=== PATIENT | female | born 1995 | race Caucasian/White ===

== ENCOUNTER 2023-08-11 16:10 | Emergency (ER) | payer SELFPAY | END 2023-08-11 16:11 | disposition left against medical advice (07) | LOC: ANHED 18:35 | PROVIDERS: PCP Pediatrics | DX: Z53.21 Procedure and treatment not carried out due to patient leaving prior to being seen by health care provider (principal) | CPT/HCPCS: 99199 ==

== ENCOUNTER 2024-04-09 23:23 | Emergency (ER) | payer OTHER, SELFPAY ==
[2024-04-09 23:25] VITALS: BP 124/85; PULSE 97; RESP 18; TEMP 36.2; O2SAT 100
--- NOTE | 2024-04-09 23:42 | ED.EAR ---
HPI - Ear Problem General Chief complaint: Ear Stated complaint: ear pain History of Present Illness HPI Narrative: this is a 28-year-old female presenting with ear and jaw pain. The pain started an hour half prior to arrival. the pain is located in her right jaw on in her ear. It is worse when she moves her mouth. It is not associated with signs of infection like fevers chills or URI symptoms. She does not have any loss of hearing in her right ear. She does not believe she has any cavities and saw a dentist several weeks ago. no sore throat or difficulty swallowing. Patient took 500 mg and Tylenol with minimal relief. Patient was treated for a possible ear infection 2 weeks ago when she had similar symptoms although at that time she had loss of hearing in that ear. Patient states she was outside mowing the lawn and in nature and does have seasonal allergies. Related Data Allergies Allergy/AdvReac Type Severity Reaction Status Date / Time Penicillins Allergy Intermediate rash Verified 03/19/24 13:07 [facility] Past Medical History Medical History Concussion Social History Social History Smoking status: Never smoker Alcohol intake: current Substance use: never Lack of Transportation: No Lack of Food: Never True Current Housing: I Have Housing Concerned About Future Housing: No Difficulty Paying Gas/Electric Bills: No Difficulty Paying for Meds: No Education: Bachelor's Degree Living arrangements: with family Exam Narrative: APPEARANCE: No apparent distress. Head: Normal dentition without any obvious dental caries. tympanic membranes are normal bilaterally with no erythema/ bulging/ or purulence. pain to palpation over the right TMJ EYES: EOMI, NOSE: Atraumatic NECK: Trachea midline RESPIRATORY: No increased rate of breathing CARDIOVASCULAR: RRR, ABDOMINAL: Non-distended MUSCULOSKELETAl: No obvious deformities NEURO: Alert. Moving 4/4 extremities SKIN:: Warm, dry. Normal color PSYCHIATRIC: Normal affect Course Vital Signs Vital signs: Vital Signs Temperature 97.1 F L 04/09/24 23:25 Pulse Rate 97 04/09/24 23:25 Respiratory Rate 18 04/09/24 23:25 Blood Pressure 124/85 04/09/24 23:25 Pulse Oximetry 100 04/09/24 23:25 Oxygen Delivery Room Air 04/09/24 23:25 Temperature 97.1 F L 04/09/24 23:25 Pulse Rate 97 04/09/24 23:25 Respiratory Rate 18 04/09/24 23:25 Blood Pressure 124/85 04/09/24 23:25 Pulse Oximetry 100 04/09/24 23:25 Oxygen Delivery Room Air 04/09/24 23:25 Medical Decision Making MDM Narrative Medical decision making narrative: -Course: 28-year-old female presenting with right jaw and ear pain. On physical exam her right ear looks normal. No significant dental caries. She does have some tenderness to palpation over the right TMJ. patient has only had pain for several hours and may develop further symptoms over the weekend that further clarify the diagnosis. Patient will be treated with Motrin and Tylenol instructed to follow-up with her primary care physician Friday. Given return precautions if she develops fevers, signs of infection, swelling in her throat. -DDX includes but is not limited to: TMJ, acute otitis media, serous otitis media with effusion, dental caries, trigeminal neuralgia -Interventions: Motrin, Tylenol -Shared decision making / Disposition: d/c -RX Motrin Tylenol Vital Signs Vital Signs: Vital Signs Temperature 97.1 F L 04/09/24 23:25 Pulse Rate 97 04/09/24 23:25 Respiratory Rate 18 04/09/24 23:25 Blood Pressure 124/85 04/09/24 23:25 Pulse Oximetry 100 04/09/24 23:25 Oxygen Delivery Room Air 04/09/24 23:25 Temperature 97.1 F L 04/09/24 23:25 Pulse Rate 97 04/09/24 23:25 Respiratory Rate 18 04/09/24 23:25 Blood Pressure 124/85 04/09/24 23:25 Pulse
[2024-04-09] MEDS: ACETAMINOPHEN 500 MG TABLET PO (23:45)
[2024-04-09] MEDS: IBUPROFEN 400 MG TABLET 800 MG PO (23:45)
[2024-04-10 00:02] VITALS: BP 132/75; PULSE 80; RESP 18; O2SAT 98
== END 2024-04-10 00:02 | disposition home or self-care (01) ==
PROVIDERS: Emergency Provider Emergency Medicine; PCP Nurse Practitioner Family
DX: R68.84 Jaw pain (principal)
CPT/HCPCS: 99283; A9270

== ENCOUNTER 2025-01-15 08:32 | Outpatient (CLI) | payer OTHER, SELFPAY ==
[2025-01-15 08:54] LABS: Hematocrit 38.8 % (35.0-49.0); Hemoglobin 13.2 g/dL (12.0-15.0); Mean Corpuscular Hemoglobin 29.2 pg (27.0-31.0); Mean Corpuscular Volume 85.8 fL (78.0-102.0); Mean Platelet Volume 10.2 fl (9.2-11.8); Platelet Count Result 251 K/mm3 (150-420); Red Blood Count 4.52 M/mm3 (4.20-5.40); Red Cell Distribution Width 12.8 % (11.6-14.4); White Blood Count 7.7 K/mm3 (4.8-10.8)
[2025-01-15 09:19] LABS: HIV 1 P24 AG Negative (Negative); HIV 1/2 AB Negative (Negative)
[2025-01-17 18:08] LABS: CMV IgG Antibody <0.60 U/mL; Rubella IgG Antibody <0.90 Index; Varicella IgG Antibody 1.23 S/CO
[2025-01-18 01:59] LABS: Hepatitis B Surface Antigen NON-REACTIVE (NON-REACTIVE)
[2025-01-18 16:08] LABS: RPR Screen NON-REACTIVE (NON-REACTIVE)
== END 2025-01-15 08:33 | disposition home or self-care (01) ==
LOC: CHSLAB 08:33
PROVIDERS: PCP Nurse Practitioner Family; Visit Provider Student in an Organized Health Care Education/Training Program
DX: N91.2 Amenorrhea, unspecified (principal); Z20.828 Contact with and (suspected) exposure to other viral communicable diseases
CPT/HCPCS: 36415; 81329; 84702; 85027; 86592; 86644; 86762; 86787; 86850; 86900; 86901; 87340; 87806

== ENCOUNTER 2025-01-30 17:01 | Emergency (ER) | payer OTHER, SELFPAY ==
--- NOTE | 2025-01-30 17:03 | ED.URI ---
HPI - URI/Sore Throat General Chief Complaint: Upper Respiratory Infection Stated Complaint: Fever Time Seen by Provider: 01/30/25 17:03 Source: patient Mode of arrival: ambulatory Limitations: no limitations History of Present Illness HPI Narrative: Erin is a 29-year-old female patient presenting to the clinic today with complaints of fever, scratchy throat, body aches, chills, and nasal congestion x1 day. She reports her symptoms started last night. Temperature in the clinic is 100.3? F. highest fever was 101.1F. She is 11 weeks MD elicited complaint: fever, cough and nasal congestion Related Data Home Medications ?Medication ?Instructions ?Recorded ?Confirmed ?Last Taken ?Type vits no.126-ferrous fum tablet PO 01/03/25 01/03/25 Unknown History 28 mg iron-folic acid 800 mcg tablet (Classic ) Allergies Allergy/AdvReac Type Severity Reaction Status Date / Time Penicillins Allergy Intermediate rash Verified 01/30/25 17:16 Review of Systems Review of Systems: Pertinent positives per HPI. Patient denies any rash, headache, visual changes, dizziness, cough, shortness of breath, chest pain, palpitations, nausea, vomiting, diarrhea, constipation, abdominal pain, or any urinary issues. [facility] Past Medical History Medical History Pseudotumor cerebri syndrome TMJ (dislocation of temporomandibular joint) Concussion Family History Family History Mother Hypertension Social History Social History Smoking status: Never smoker Tobacco type: e-cigarettes/vaping Second hand tobacco smoke exposure: No Alcohol intake: current Drinks per week: 2 Substance use: current Substance use type: marijuana Other substance usage details: 2 x weeek Do You Feel Safe in your Home?: Yes Lack of Transportation: No Lack of Food: Never True Current Housing: I Have Housing Concerned About Future Housing: No Difficulty Paying Gas/Electric Bills: No Difficulty Paying for Meds: No Currently Unemployed: No Education: Bachelor's Degree Difficulty w/ Childcare or Family Care: No Living arrangements: with family Additional living arrangements comments: Occupation/Education: occupation 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 There is no relevant family history pertinent to the patient complaint. Exam Narrative: General: Well-developed, well nourished, in no apparent distress Head: Normocephalic, atraumatic Eyes: Pupils equally round and reactive to light bilaterally, EOM intact, sclera and conjunctive clear, no discharge, lids normal Ears: TMs intact and clear, ear canals clear, no drainage, grossly hearing normal. Nose: Nares patent, clear nasal discharge, no inflammation, no sinus tenderness. Mouth: Oral pharynx without lesions or masses, good dentition, MMM. Neck: Supple, trachea midline, no enlargement of anterior or posterior cervical nodes, no thyroid masses or goiter palpable. Cardio: Regular rate and rhythm, s1 and s2 normal, no murmur appreciated. Resp: Clear to auscultation bilaterally, no rhonchi, rales, wheezing or rubs Course Course Emergency Course: Portions of this record may have been created with voice recognition software. Level of Care: Express Care Visit Vital Signs Vital signs: Vital Signs Temperature 37.9 C H 01/30/25 17:16 Pulse Rate 101 H 01/30/25 17:16 Respiratory Rate 20 01/30/25 17:16 Blood Pressure 143/90 H 01/30/25 17:16 Pulse Oximetry 100 01/30/25 17:16 Oxygen Delivery Room Air 01/30/25 17:16 Temperature 37.9 C H 01/30/25 17:21 Pulse Rate 101 H 01/30/25 17:21 Respiratory Rate 20 01/30/25 17:21 Blood Pressure 143/90 H 01/30/25 17:21 Pulse Oximetry 100 01/30/25 17:16 Oxygen Delivery Room Air 01/30/25 17:21 Vital signs reviewed MDM - URI/Sore Throat MDM Narrative Medical decision making narrative: At the time of visit patient is resting comfortably on the exam table. Patient appears to be nontoxic. Labs: Influenza a testing is positive in the clinic today. Plan: Patient has influenza A. She is 11 weeks . Prescription for Tamiflu was sent to the pharmacy. Supportive measures were discussed with the patient and they voiced understanding discharge instructions and agrees to treatment plan. Return precautions reviewed Differential Diagnosis Differential diagnosis: Likely upper respiratory infection, otitis media, sinusitis, viral infection, bronchitis, influenza, pharyngitis and other (COVID) Discharge Plan Discharge Clinical Impression: Influenza A Patient Disposition: Home, Self-Care Condition: Stable Instructions: Antibiotic Form, Influenza (ED) Additional Instructions: Take prescription medications only as vmhzoxpjen-njahelz-nuho medication is safe in Increase fluids and stay well hydrated Tylenol for pain/fever Flonase and OTC antihistamines as directed Vicks vapor rub to open sinuses Sinus rinses for congestion Cepacol spray, cough drops, throat lozenges, warm tea with honey/lemon, gargle salt water to soothe throat BRAT diet for diarrhea Clear liquids x 24 hours then advance as tolerated for nausea/vomiting Go to the ED if you develop a worsening in your condition- high fever not controlled by Tylenol or Motrin, dehydration, weakness, lethargy, shortness of breath, or chest pain. Follow up with your PCP in 3-5 days if symptoms persist. Approved Medications for Patients Cold and Flu Symptoms --Tylenol (regular or extra Strength) Fever (call if over 101?)--Tylenol (regular or extra Strength) Nasal Drainage/Head Congestion--Chlor-Trimeton, Sudafed, Tavist,Tylenol Sinus Cough--Robitussin, Delsym, Mucinex Sore Throat--Chloraseptic, Cepacol lozenges Allergy Symptoms--Benadryl, Zyrtec, Zyrtec D, Claritin, Claritin D Nausea--Emetrol, Vitamin B6 Tablets, Dot, Dot Tea, Preggie Pops, B-Vinicio Suckers Constipation--Milk of Magnesia, Metamucil, Fiberall, Konsyl, Colace (Docusate Sodium) Diarrhea--Imodium, Kaopectate, Follow BRAT diet: bananas, rice, applesauce, tea/toast Heartburn--Maalox, Mylanta, TUMS, Prilosec OTC, Zantac, Tagament, Prevacid, Pepcid Hemorrhoids--Tucks Pads, Anusol, Preparation H, warm sitz baths Patient Language: Armenian Prescriptions: New oseltamivir [Tamiflu] 75 mg capsule 75 mg PO Q12H 5 Days Qty: 10 0RF No Action Classic 28 mg iron- 800 mcg tablet PO ondansetron HCl 4 mg tablet 4 mg PO Q6H PRN (Reason: nausea and vomiting) Qty: 30 1RF Follow-up/Referrals: PHYSICIAN,STREETS AND BUILDINGS DECORATOR [Primary Care Provider] - Stand Alone Forms: Work/School Release IP Time of Disposition: 17:20 Quality NIHSS Nursing Documentation ED NIHSS nursing documentation: reviewed/agree
[2025-01-30 17:16] VITALS: BP 143/90; PULSE 101; RESP 20; TEMP 37.9; O2SAT 100
[2025-01-30 17:21] VITALS: BP 143/90; PULSE 101; RESP 20; TEMP 37.9
[2025-01-30 17:24] LABS: EDINFLUASCREEN Positive (Negative); EDINFLUBSCREEN Negative (Negative)
== END 2025-01-30 17:26 | disposition home or self-care (01) ==
PROVIDERS: Emergency Provider Nurse Practitioner Family
DX: O26.891 Other specified pregnancy related conditions, first trimester (principal); J10.1 Influenza due to other identified influenza virus with other respiratory manifestations; Z3A.11 11 weeks gestation of pregnancy
CPT/HCPCS: 87804; 99213; G0463

== ENCOUNTER 2025-04-08 13:22 | Outpatient (CLI) | payer OTHER, SELFPAY ==
--- NOTE | ~2025-04-08 | US_ITS ---
COMPLETE AND LIMITED MATERNAL ULTRASOUND (Duplex and color flow interrogation techniques used f or this exam.) Ordering provider: Eliazar Moore History: . Z34.92 - Encounter for supervision of normal , u... . Comparison: N Findings: Number of fetuses: 1 BIOMETRY: BPD: 5 cm (21 weeks 2 days) HC: 18.6 cm (20 weeks 6 days) AC: 16.9 cm (21 weeks 6 days) FL: 3.8 cm (22 weeks 0 days) Parametric ratios: Today's average US gestational age: 21 weeks 4 days Today's EDC: August 15, 2025 (Previously established gestational age: 20 weeks 4 days) (Previously established EDC: 08/22/2025. CI: 76.95. FL/BPD: 74.6. CT/AC: 1.1. FL/AC: 22.21. Estimated weight: 453.86gm. Rank: 96.6% SCREENING OF ANATOMY: ( Y =seen and unremarkable.) Cerebellum: Y( 22.6 mm) Lateral ventricles: Y . Nuchal fold:Y. measures 4.9 mm. Cisterna magna: Y ( 4.2 mm) Stomach: Y Kidneys: Y. Measures 1.6 cm bilaterally. Bladder: Y Spine: Y Three vessel cord: Y Cord insertion: Y Four chamber heart: Y LVOT: Y RVOT: Y Lips and nose: Y Upper extremity: Y Lower extremity: Y Cervix: Y ( 47.3 mm ) Presentation: Breech. Longitudinal lie. Placental location: Anterior fundal. Distance to cervix is 3.8 cm. Previa: N. Amniotic fluid index: Normal. Heart rate: 154 bpm MATERNAL: ( Y =seen and unremarkable.) Adnexa: N Right kidney: N Left kidney: N Gallbladder: N Wafer Machine Operator comments: N IMPRESSION: Single live fetus of 21 weeks and 4 days of breech presentation. Reviewed, dictated and finalized at location A.
--- OUTSIDE RECORDS SUMMARY | 2025-04-08 13:24 | XMS_ITS | Clinical Summary ---
Author Organization [facility] Address [address] [place] [address] Care Team Providers Care Journeyman Welder Name Role Phone Lobito Mcelroy Primary Care Provider Allergies Active Allergy Reactions Criticality Noted Date Comments Penicillins Rash Medium 01/24/2020 Medications albuterol HFA (PROVENTIL HFA,VENTOLIN HFA,PROAIR HFA) 90 mcg/actuation inhaler 09/30/20 23 Active ondansetron ODT (ZOFRAN-ODT) 4 mg disintegrating tablet 10/09/20 23 Active topiramate (TOPAMAX) 50 mg tablet Take 1 tablet (50 mg total) by mouth 2 (two) times a day Take 1 50 mg tablet daily for one week, and then increase to two times a day 180 tablet 3 10/27/20 23 Active Additional Information Patient not taking.Reported on 02/25/2025 PNV no.95/ferrous fum/folic ac ( ORAL) Take by mouth Active magnesium gluconate 200 mg tabletIndications: hypomagnesemia 1 tablet (200 mg total) Active Active Problems Problem Noted Date Diagnosed Date Clostridium difficile diarrhea 06/25/2021 Recurrent sinusitis 06/25/2021 Recurrent major depression 03/07/2021 Idiopathic intracranial hypertension 04/19/2020 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 [address] [place] [phone] Trenton Tiwari MD Idiopathic intracranial hypertension (Primary Dx); Papilledema 02/25/2025 8:20 AM CDT Imaging Exam [facility] Ophthalmology [address] [place] [phone] Idiopathic intracranial hypertension 02/25/2025 8:00 AM CDT Imaging Exam [facility] Ophthalmology [address] [place] [phone] Idiopathic intracranial hypertension 02/22/2025 Telephone [facility] Ophthalmology [address] [place] [phone] Trenton Tiwari MD 02/02/2025 Orders Only [facility] Ophthalmology [address] [place] [phone] Trenton Tiwari MD Idiopathic intracranial hypertension (Primary Dx) from Last 3 Months Surgical History Surgery Date Site/Laterality Comments LUMBAR PUNCTURE WO INJECTION, DIAGNOSTIC 02/04/2020 N/A Social History Tobacco Use Types Packs/Day Years Used Date Smoking Tobacco: Former Alcohol Use Standard Drinks/Week Comments Yes 0 (1 standard drink = 0.6 oz pur e alcohol) Social AUDIT-C Answer Date Recorded Q1: How often do you have a drink containing alc ohol? 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 Gender Identity Female 08/11/2023 11:20 AM CDT Sexual Orientation Not on file Obstetrics History Last Filed Vital Signs Vital Sign Reading Time Taken Comments Blood Pressure 136/77 02/04/2020 12:00 PM INFLATABLE BUILDINGS LAMINATOR Pulse 72 02/04/2020 12:00 PM INFLATABLE BUILDINGS LAMINATOR Temperature 36.6 C (97.8 F) 02/04/2020 12:00 PM INFLATABLE BUILDINGS LAMINATOR Respiratory Rate 16 02/04/2020 12:00 PM INFLATABLE BUILDINGS LAMINATOR Oxygen Saturation 99% 02/04/2020 12:00 PM INFLATABLE BUILDINGS LAMINATOR Inhaled Oxygen Concentration - - Weight 118.8 kg (262 lb) 10/27/2023 2:43 PM INFLATABLE BUILDINGS LAMINATOR Height 172.7 cm (5' 8 ) 10/27/2023 2:43 PM INFLATABLE BUILDINGS LAMINATOR Body Mass Index 39.84 10/27/2023 2:43 PM INFLATABLE BUILDINGS LAMINATOR Plan of Treatment Health Maintenance Due Date Last Done Comments Cervical Cancer Screening 1997 Depression Screening 1997 Hepatitis C Screening 1997 DTaP/Tdap/Td Vaccine (4 - Tdap) 2008 04/05/1998, 01/18/1998, 1997 Varicella Vaccines (1 of 2 - 13+ 2-dose series) 2010 Regular Well Visit/Exam 18-64 2015 Covid-19 Vaccine (2 - 2023-2 5 season) 2024 08/24/2021 Influenza Vaccine (Season Ended) 2025 Hepatitis B Screening Completed 1997 , 1997 HPV Vaccines Aged Out No longer eligi ble based on patient's age to complete this topic Pneumococcal vaccine <65 Aged Out No longer eligible based on patient's age to complete this topic Procedures Procedure Name Priority Date/Time Associated Diagnosis Comments PINEDA VISUAL FIELD - OU - BOTH EYES Routine 02/25/2025 8:33 AM CDT Idiopathic intracranial hypertension OCT, RETINA - OU - BOTH EYES Routine 02/25/2025 8:33 AM CDT Idiopathic intracranial hypertension OCT, OPTIC NERVE - OU - BOTH EYES Routine 02/25/2025 8:33 AM CDT Idiopathic intracranial hypertension from Last 3 Months Results * Pineda Visual Field - OU - Both Eyes (02/25/2025 8:33 AM CDT) Mean Deviation OS -1.24 dB CONTINUUM Mean Deviation OD 0.13 dB CONTINUUM Anatomical Region Laterality Modality Head Other Narrative 02/25/2025 10:00 AM CDT Right Eye Fixation was good. Cooperation was good. Reliability was good. Progression has been stable. Foveal threshold was normal. Findings include normal observations. Mean Deviation was 0.13 dB. Left Eye Fixation was good. Cooperation was good. Reliability was good. Progression has been stable. Foveal threshold was normal. Findings include non-specific defects. Mean Deviation was -1.24 dB. Trenton Tiwari MD OPH VISUAL FIELD F inal Result * OCT, Retina - OU - Both Eyes (02/25/2025 8:33 AM CDT) Central Macular Thickness OS 269 mircometers CONTINUUM Central Macular Thickness OD 263 micrometers CONTINUUM Anatomical Region Laterality Modality Head Other Narrative 02/25/2025 9:57 AM CDT Right Eye Quality was good. Scan locations included subfoveal. Progression has been stable. Findings include normal foveal contour. Macular thickness was 263 micrometers. Left Eye Quality was good. Scan locations included subfoveal. Progression has been stable. Findings include normal foveal contour. Macular thickness was 269 mircometers. Notes GCL OD: 89 OS: 92 Normal macular and ganglion cell layer (GCL) thickness both eyes (OU). Stable both eyes (OU). Trenton Tiwari MD OPHTH TOMOGRAPHY Fin al Result * OCT, Optic Nerve - OU - Both Eyes (02/25/2025 8:33 AM CDT) RNFL OS 151 micrometers CONTINUUM RNFL OD 139 micrometers CONTINUUM Anatomical Region Laterality Modality Head Other Narrative 02/25/2025 9:57 AM CDT Right Eye Reliability was good. Average RNFL thickness 139 micrometers. Left Eye Reliability was good. Average RNFL thickness 151 micrometers. Notes Mild, diffuse retinal nerve fiber layer thickening OU. Stable both eyes (OU). Trenton Tiwari MD OPHTH TOMOGRAPHY Fin al Result from Last 3 Months Insurance [facility] H[facility]/PPO Address: [address] [address] [place] [address] [facility] Advance Directives For more information, please contact: [phone] * Full Code (Latest Code Status on File) Date Activated Date Inactivated Comments 02/04/2020 11:17 AM 02/04/2020 7:26 PM Care Teams Journeyman Welder Relationship Specialty Start Date End Date Lobito Mcelroy DO [address] [place] [address] PCP - General Family Medicine 11/29/24
--- OUTSIDE RECORDS SUMMARY | 2025-04-08 13:24 | XMS_ITS | Referral Summary ---
Author Organization [facility] Address [address] [place] [address] Care Team Providers Care Bullion Weigher Name Role Phone Lobito Mcelroy DO Primary Care Provider Encounters Date Type Department Care Team Description 02/25/2025 8:20 AM CDT Imaging Exam [facility] Ophthalmology [address] [place] [phone] Idiopathic intracranial hypertension 02/25/2025 8:00 AM CDT Imaging Exam [facility] Ophthalmology [address] [place] [phone] Idiopathic intracranial hypertension 02/25/2025 8:30 AM CDT Office Visit [facility] Ophthalmology [address] [place] [phone] Trenton Tiwari MD Idiopathic intracranial hypertension (Primary Dx); Papilledema 02/22/2025 Telephone [facility] Ophthalmology [address] [place] [phone] Trenton Tiwari MD 02/02/2025 Orders Only [facility] Ophthalmology [address] [place] [phone] Trenton Tiwari MD Idiopathic intracranial hypertension (Primary Dx) from Last 3 Months Allergies Active Allergy Reactions Criticality Noted Date Comments Penicillins Rash Medium 01/24/2020 Medications albuterol HFA (PROVENTIL HFA,VENTOLIN HFA,PROAIR HFA) 90 mcg/actuation inhaler 09/30/20 Active ondansetron ODT (ZOFRAN-ODT) 4 mg disintegrating tablet 10/09/20 Active topiramate (TOPAMAX) 50 mg tablet Take 1 tablet (50 mg total) by mouth 2 (two) times a day Take 1 50 mg tablet daily for one week, and then increase to two times a day 180 tablet 3 10/27/20 Active Additional Information Patient not taking.Reported on 02/25/2025 PNV no.95/ferrous fum/folic ac ( ORAL) Take by mouth Active magnesium gluconate 200 mg tabletIndications: hypomagnesemia 1 tablet (200 mg total) Active Active Problems Problem Noted Date Diagnosed Date Clostridium difficile diarrhea 06/25/2021 Recurrent sinusitis 06/25/2021 Recurrent major depression 03/07/2021 Idiopathic intracranial hypertension 04/19/2020 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 Migraine 10/18/2019 Social History Tobacco Use Types Packs/Day Years [...] on file Legal Sex Female 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 Gender Identity Female 08/11/2023 11:20 AM CDT Sexual Orientation Not on file Last Filed Vital Signs Vital Sign Reading Time Taken Comments Blood Pressure 136/77 02/04/2020 12:00 PM [employer]WO[employer] V[employer] REPAIRER Pulse 72 02/04/2020 12:00 PM [employer]WO[employer] AND VENEER REPAIRER Temperature 36.6 C (97.8 F) 02/04/2020 12:00 PM [employer]WO[employer] AND VENEER REPAIRER Respiratory Rate 16 02/04/2020 12:00 PM [employer]WO[employer] VENEER REPAIRER Oxygen Saturation 99% 02/04/2020 12:00 PM PLYWOOD AND VENEER REPAIRER Inhaled Oxygen Concentration - - Weight 118.8 kg (262 lb) 10/27/2023 2:43 PM [employer]WO[employer] AND VENEER REPAIRER Height 172.7 cm (5' 8 ) 10/27/2023 2:43 PM [employer]YWOOD AND VENEER REPAIRER Body Mass Index 39.84 10/27/2023 2:43 PM [employer]WO[employer] VENEER REPAIRER Plan of Treatment Not on file Procedures Procedure Name Priority Date/Time Associated Diagnosis [...] al Result from Last 3 Months Insurance [facility] Advance Directives For more information, please contact: [phone] * Full Code (Latest Code Status on File) Date Activated Date Inactivated Comments 02/04/2020 11:17 AM 02/04/2020 7:26 PM Care Teams Bullion Weigher Relationship Specialty Start Date End Date Lobito Mcelroy DO [address] [place] [address] PCP - General Family Medicine 11/29/24
--- OUTSIDE RECORDS SUMMARY | 2025-04-08 13:24 | XMS_ITS | Encounter Summary ---
Author Organization [facility] Address [address] [place] [address] Phone Care Team Providers Care Holistic Pulser Name Role Phone Kaela Ernst DO Primary Care Provider [phone] Lobito Mcelroy DO Primary Care Provider Reason for Referral * Diagnostic Imaging (Routine) - Closed Specialty Diagnoses / Procedures Referred By Contac t Referred To Contact Diagnoses Idiopathic intracranial hypertension Papilledema Pseudotumor cerebri Procedures OCT, Retina - OU - Both Eyes Trenton Tiwari MD [address] [place] [address] Phone: tel: fax: [facility] (All Locations) Referral ID Status Reason Start Date Expiration Date Visits Re quested Visits Authorized [id number] Closed 02/03/2024 03/04/2025 1 1 NDARY TEACHER * Diagnostic Imaging (Routine) - Closed Specialty Diagnoses / Procedures Referred By Contac t Referred To Contact Diagnoses Idiopathic intracranial hypertension Papilledema Pseudotumor cerebri Procedures OCT, Optic Nerve - OU - Both Eyes Trenton Tiwari MD [address] [place] [address] Phone: tel: fax: [facility] (All Locations) Referral ID Status Reason Start Date Expiration Date Visits Re quested Visits Authorized [id number] Closed 02/03/2024 03/04/2025 1 1 NDARY TEACHER * Diagnostic Imaging (Routine) - Closed Specialty Diagnoses / Procedures Referred By Preet t Referred To Contact Diagnoses Idiopathic intracranial hypertension Papilledema Pseudotumor cerebri Procedures Pineda Visual Field - [place] [address] [place] [address] Phone: tel: fax: [facility] (All Locations) Referral ID Status Reason Start Date Expiration Date Visits Re quested Visits Authorized [id number] Closed 02/03/2024 03/04/2025 1 1 NDARY TEACHER Encounter Details Date Type Department Care Team (Late st Contact Info) Description 02/03/2024 Orders Only [facility] Ophthalmology [address] [place] [address] Health 6th [place] [phone] Trenton Tiwari MD [facility] [address] [address] Idiopathic intracranial hypertension (Primary Dx); Papilledema; Pseudotumor cerebri Social History Tobacco Use Types Packs/Day Years Used Date Smoking Tobacco: Former Alcohol Use Standard Drinks/Week Comments Yes 0 (1 standard drink = 0.6 oz pur e alcohol) Social Comments No Sex and Gender Information Value Date Recorded Sex Assigned at Not on file Legal Sex Female 7:19 PM SECONDARY TEACHER Gender Identity Female 08/11/2023 11:20 AM CDT Sexual Orientation Not on file documented as of this encounter Plan of Treatment Not on file documented as of this encounter Procedures Procedure Name Priority Date/Time Associated Diagnosis Comments PINEDA VISUAL FIELD - OU - BOTH EYES Routine 02/20/2024 9:08 AM CDT Idiopathic intracranial hypertension Papilledema Pseudotumor cerebri documented in this encounter Results * Pineda Visual Field - OU - Both Eyes (02/20/2024 9:08 AM CDT) Pattern Deviation OS 1.44 db CONTINUUM Pattern Deviation OD 1.10 db CONTINUUM Mean Deviation OS -1.64 db CONTINUUM Mean Deviation OD -1.09 db CONTINUUM Anatomical Region Laterality Modality Head Other Narrative 02/20/2024 2:09 PM CDT Right Eye Fixation was good. Cooperation was good. Reliability was good. Progression has been stable. Foveal threshold was normal. Findings include normal observations. Mean Deviation was -1.09 db. Pattern Deviation was 1.10 db. Left Eye Fixation was good. Cooperation was good. Reliability was good. Progression has been stable. Foveal threshold was normal. Findings include normal observations. Mean Deviation was -1.64 db. Pattern Deviation was 1.44 db. Trenton Tiwari MD OPH VISUAL FIELD F inal Result * OCT, Retina - OU - Both Eyes (02/20/2024 9:08 AM CDT) Central Macular Thickness OS 274 mircometers CONTINUUM Central Macular Thickness OD 273 micrometers CONTINUUM Anatomical Region Laterality Modality Head Other Narrative 02/20/2024 2:10 PM CDT Right Eye Quality was good. Scan locations included subfoveal. Progression has been stable. Findings include normal foveal contour. Macular thickness was 273 micrometers. Left Eye Quality was good. Scan locations included subfoveal. Progression has been stable. Findings include normal foveal contour. Macular thickness was 274 mircometers. Notes GCL OD: 92 OS: 94 Normal macular and ganglion cell layer (GCL) thickness both eyes (OU). Stable OU. Trenton Tiwari MD OPH TOMOGRAPHY Fin al Result * OCT, Optic Nerve - OU - Both Eyes (02/20/2024 9:08 AM CDT) RNFL OS 129 micrometers CONTINUUM RNFL OD 126 micrometers CONTINUUM Anatomical Region Laterality Modality Head Other Narrative 02/20/2024 2:09 PM CDT Right Eye Reliability was good. Average RNFL thickness 126 micrometers. Left Eye Reliability was good. Average RNFL thickness 129 micrometers. Notes Mild, diffuse retinal nerve fiber layer thinning OU. Stable OD, slight thinning since prior scan OS. us Trenton Tiwari MD OPHTH TOMOGRAPHY Fin al Result documented in this encounter Visit Diagnoses Diagnosis Idiopathic intracranial hypertension- Primary Benign intracranial hypertension Papilledema Unspecified papilledema Pseudotumor cerebri Benign intracranial hypertension Idiopathic intracranial hypertension Benign intracranial hypertension Papilledema Unspecified papilledema Pseudotumor cerebri Benign intracranial hypertension documented in this encounter Care Teams Holistic Pulser Relationship Specialty Start Date End Date Kaela Ernst DO [address] [address] PCP - General Internal Medicine 01/24/20 11/28/24 Lobito Mcelroy DO [address] [place] [address] PCP - General Family Medicine 11/29/24 documented as of this encounter
== END 2025-04-08 13:23 | disposition home or self-care (01) ==
PROVIDERS: PCP Nurse Practitioner Family; Visit Provider Student in an Organized Health Care Education/Training Program
DX: Z34.92 Encounter for supervision of normal pregnancy, unspecified, second trimester (principal); Z3A.21 21 weeks gestation of pregnancy
CPT/HCPCS: 76805

== ENCOUNTER 2025-06-22 07:28 | Outpatient (CLI) | payer OTHER, SELFPAY ==
--- OUTSIDE RECORDS SUMMARY | 2025-06-22 07:32 | XMS_ITS | Encounter Summary ---
Author Organization [facility] Address [address] [place] [address] Phone Care Team Providers Care Barrel Filler Head Name Role Phone Kaela Ernst DO Primary Care Provider [phone] Lobito Mcelroy DO Primary Care Provider Reason for Referral * Diagnostic Imaging (Routine) - Closed Specialty Diagnoses / Procedures Referred By Contac t Referred To Contact Diagnoses Idiopathic intracranial hypertension Papilledema Pseudotumor cerebri Procedures OCT, Retina - OU - Both Eyes Trenton Tiwari MD [address] [place] [address] Phone: tel: fax: [facility] (All Locations) Referral ID Status Reason Start Date Expiration Date Visits Re quested Visits Authorized [id number] Closed 02/03/2024 03/04/2025 1 1 GRATION LAW SPECIALIST * Diagnostic Imaging (Routine) - Closed Specialty Diagnoses / Procedures Referred By Contac t Referred To Contact Diagnoses Idiopathic intracranial hypertension Papilledema Pseudotumor cerebri Procedures OCT, Optic Nerve - OU - Both Eyes Trenton Tiwair MD [address] [place] [address] Phone: tel: fax: [facility] (All Locations) Referral ID Status Reason Start Date Expiration Date Visits Re quested Visits Authorized [id number] Closed 02/03/2024 03/04/2025 1 1 GRATION LAW SPECIALIST * Diagnostic Imaging (Routine) - Closed Specialty Diagnoses / Procedures Referred By Preet t Referred To Contact Diagnoses Idiopathic intracranial hypertension Papilledema Pseudotumor cerebri Procedures Pineda Visual Field - [place] [address] [place] [address] Phone: tel: fax: [facility] (All Locations) Referral ID Status Reason Start Date Expiration Date Visits Re quested Visits Authorized [id number] Closed 02/03/2024 03/04/2025 1 1 GRATION LAW SPECIALIST Encounter Details Date Type Department Care Team (Late st Contact Info) Description 02/03/2024 Orders Only [facility] Ophthalmology [address] [place] [address] Health 6th [place] [phone] Trenton Tiwari MD [facility] [address] Idiopathic intracranial hypertension (Primary Dx); Papilledema; Pseudotumor cerebri Social History Tobacco Use Types Packs/Day Years Used Date Smoking Tobacco: Former Alcohol Use Standard Drinks/Week Comments Yes 0 (1 standard drink = 0.6 oz pur e alcohol) Social Comments No Sex and Gender Information Value Date Recorded Sex Assigned at Not on file Legal Sex Female 7:19 PM IMMIGRATION LAW SPECIALIST Gender Identity Female 08/11/2023 11:20 AM CDT [...] hypertension documented in this encounter Care Teams Barrel Filler Head Relationship Specialty Start Date End Date Kaela Ernst DO [address] [address] PCP - General Internal Medicine 01/24/20 11/28/24 Lobito Mcelroy DO [address] [place] [address] PCP - General Family Medicine 11/29/24 documented as of this encounter
--- OUTSIDE RECORDS SUMMARY | 2025-06-22 07:32 | XMS_ITS | Clinical Summary ---
Author Organization [facility] Address [address] [place] [address] Care Team Providers Care Studio Technician Name Role Phone Klever Kaela Hutchinson DO Primary Care Provider [phone] [facility],non-owned Affiliates and Associated Physician Practices is amultiple site organization consisting of ambulatory clinics and hospital sitesin [place], [place], [place] and [place]. This disclosure is being madepursuant to the Care Everywhere program and may not contain all information available regarding this patient. Last updated 18.[facility] Allergies Active Allergy Reactions Criticality Noted Date Comments Penicillins Rash Medium 01/24/2020 Medications * Be aware that medications may not be up to date on this document. Alwaysverify current medications with the patient. FLUoxetine (PROZAC) 20 MG capsule Take 1 capsule by mouth once daily 03/07/2021 Active levonorgestrel- ethinyl estradiol (ALESSE; LEVLITE; AVIANE; LUTERA; LESSINA; SRONYX) 0.1-20 MG-MCG tablet Take 1 (one) tablet by mouth once daily 3 packet 4 03/16/2021 Active Active Problems Problem Noted Date Diagnosed Date Pseudotumor cerebri 04/19/2020 Family History Relation Name Status Comments Father Alive Mother Alive Social History Tobacco Use Types Packs/Day Years Used Date Smoking Tobacco: Never Smokeless Tobacco: Never Alcohol Use Standard Drinks/Week Comments Yes 0 (1 standard drink = 0.6 oz pur e alcohol) socially Comments No Sex and Gender Information Value Date Recorded Sex Assigned at Not on file Legal Sex Female 5:38 AM 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 Gender Identity Not on file Sexual Orientation Not on file Last Filed Vital Signs Vital Sign Reading Time Taken Comments Blood Pressure 122/92 03/16/2021 2:16 PM CDT Pulse 91 03/16/2021 2:16 PM CDT Temperature 36.8 C (98.2 F) 03/16/2021 2:16 PM CDT Respiratory Rate - - Oxygen Saturation - - Inhaled Oxygen Concentration - - Weight 127.9 kg (282 lb) 03/16/2021 2:16 PM CDT Height 170.2 cm (5' 7) 03/16/2021 2:16 PM CDT Body Mass Index 44.17 03/16/2021 2:16 PM CDT Plan of Treatment Health Maintenance Due Date Last Done Comments HIV SCREENING 2012 HEPATITIS C SCREENING 09/13/2015 DTAP/TDAP/TD VACCINES (1 - Tdap) 2016 HEPATITIS B VACCINE (1 of 3 - 19+ 3-dose series) 2016 COVID-19 VACCINE (1 - 2023-2 5 season) 2024 DEPRESSION SCREENING 12/01/2024 INFLUENZA VACCINE (#1) 2025 ZOSTER VACCINE (1 of 2) 2047 HIB VACCINE Aged Out No longer eligi ble based on patient's age to complete this topic HPV VACCINE Discontinued MENINGOCOCCAL (Group B) VACC INE SHARED DECISION-MAKING Aged Out No longer eligibl e based on patient's age to complete this topic MENINGOCOCCAL GROUPS A/C/Y/W VACCINE Aged Out No longer eligible b ased on patient's age to complete this topic PNEUMOCOCCAL VACCINE Aged Out No long er eligible based on patient's age to complete this topic Insurance [address] [place] [address] Care Teams Studio Technician Relationship Specialty Start Date End Date Kaela Ernst DO PCP - General Internal Medicine 03/16/21
--- OUTSIDE RECORDS SUMMARY | 2025-06-22 07:32 | XMS_ITS | Clinical Summary ---
Author Organization [facility] Address [address] [place] [address] Care Team Providers Care Biology Teacher Name Role Phone Lobito Mcelroy Primary Care [...] Encounters Date Type Department Care Team Description 05/20/2025 9:15 AM CDT Office Visit [facility] Ophthalmology [facility] Health [address] [place] [phone] Trenton Tiwari MD Papilledema (Primary Dx); Idiopathic intracranial hypertension 05/20/2025 8:50 AM CDT Imaging Exam [facility] Ophthalmology [address] [phone] Papilledema 05/20/2025 8:30 AM CDT Imaging Exam [facility] Ophthalmology [address] [place] [phone] Papilledema 05/16/2025 Telephone [facility] Ophthalmology [facility] [address] [phone] Trenton Tiwari MD from Last 3 Months Surgical History Surgery [...] on file Legal Sex Female 7:19 PM DAY TREATMENT CLINICIAN/ART THERAPIST Gender Identity Female 08/11/2023 11:20 AM CDT Sexual Orientation Not on file Obstetrics History Last Filed Vital Signs Vital Sign Reading Time Taken Comments Blood Pressure 136/77 02/04/2020 12:00 PM DAY TREATMENT CLINICIAN/ART THERAPIST Pulse 72 02/04/2020 12:00 PM DAY TREATMENT CLINICIAN/ART THERAPIST Temperature 36.6 C (97.8 F) 02/04/2020 12:00 PM DAY TREATMENT CLINICIAN/ART THERAPIST Respiratory Rate 16 02/04/2020 12:00 PM DAY TREATMENT CLINICIAN/ART THERAPIST Oxygen Saturation 99% 02/04/2020 12:00 PM DAY TREATMENT CLINICIAN/ART THERAPIST Inhaled Oxygen Concentration - - Weight 118.8 kg (262 lb) 10/27/2023 2:43 PM DAY TREATMENT CLINICIAN/ART THERAPIST Height 172.7 cm (5' 8) 10/27/2023 2:43 PM DAY TREATMENT CLINICIAN/ART THERAPIST Body Mass Index 39.84 10/27/2023 2:43 PM DAY TREATMENT CLINICIAN/ART THERAPIST Plan of Treatment Health Maintenance Due Date [...] FIELD - OU - BOTH EYES Routine 05/20/2025 8:43 AM CDT Papilledema OCT, RETINA - OU - BOTH EYES Routine 05/20/2025 8:39 AM CDT Papilledema OCT, OPTIC NERVE - OU - BOTH EYES Routine 05/20/2025 8:39 AM CDT Papilledema from Last 3 Months Results * Pineda Visual Field - OU - Both Eyes (05/20/2025 8:43 AM CDT) Pattern Deviation OS 1.36 dB CONTINUUM Pattern Deviation OD 1.18 dB CONTINUUM Mean Deviation OS 0.20 dB CONTINUUM Mean Deviation OD 0.04 dB CONTINUUM Anatomical Region Laterality Modality Head Other Narrative 05/20/2025 9:01 AM CDT Right Eye Fixation was good. Cooperation was good. Reliability was good. Progression has been stable. Foveal threshold was normal. Findings include normal observations. Mean Deviation was 0.04 dB. Pattern Deviation was 1.18 dB. Left Eye Fixation was good. Cooperation was good. Reliability was good. Progression has been stable. Foveal threshold was normal. Findings include normal observations. Mean Deviation was 0.20 dB. Pattern Deviation was 1.36 dB. Notes Stable and normal visual field OU Trenton Tiwari MD OPH VISUAL FIELD F inal Result * OCT, Retina - OU - Both Eyes (05/20/2025 8:39 AM CDT) Central Macular Thickness OS 266 mircometers CONTINUUM Central Macular Thickness OD 266 micrometers CONTINUUM Anatomical Region Laterality Modality Head Other Narrative 05/20/2025 9:03 AM CDT Right Eye Quality was good. Scan locations included subfoveal. Progression has been stable. Findings include normal foveal contour. Macular thickness was 266 micrometers. Left Eye Quality was good. Scan locations included subfoveal. Progression has been stable. Findings include normal foveal contour. Macular thickness was 266 mircometers. Notes GCL OD: 89 OS: 91 Normal macular and ganglion cell layer (GCL) thickness both eyes (OU). Stable both eyes (OU). Trenton Tiwari MD OPHTH TOMOGRAPHY Fin al Result * OCT, Optic Nerve - OU - Both Eyes (05/20/2025 8:39 AM CDT) RNFL OS 142 micrometers CONTINUUM RNFL OD 132 micrometers CONTINUUM Anatomical Region Laterality Modality Head Other Narrative 05/20/2025 9:02 AM CDT Right Eye Reliability was good. Average RNFL thickness 132 micrometers. Left Eye Reliability was good. Average RNFL thickness 142 micrometers. Notes Mild, diffuse retinal nerve fiber layer thickening OU, stable OU. Trenton Tiwari MD OPHTH TOMOGRAPHY Fin al Result from Last 3 Months Insurance [facility] Advance Directives For more information, please contact: [phone] * Full Code (Latest Code Status on File) Date Activated Date Inactivated Comments 02/04/2020 11:17 AM 02/04/2020 7:26 PM Care Teams Biology Teacher Relationship Specialty Start Date End Date Lobito Mcelroy DO [address] [place] [address] PCP - General Family Medicine 11/29/24
--- OUTSIDE RECORDS SUMMARY | 2025-06-22 07:32 | XMS_ITS | Referral Summary ---
Author Organization [facility] Address [address] [place] [address] Care Team Providers Care Infrastructure Architect Name Role Phone Lobito Mcelroy DO Primary Care Provider Encounters Date Type Department Care Team Description 05/20/2025 8:50 AM CDT Imaging Exam [facility] Ophthalmology [address] [place] [address] Outpatient Health [address] [place] [phone] Papilledema 05/20/2025 8:30 AM CDT Imaging Exam [facility] Ophthalmology [address] [place] [phone] Papilledema 05/20/2025 9:15 AM CDT Office Visit [facility] Ophthalmology [address] [place] [phone] Trenton Tiwari MD Papilledema (Primary Dx); Idiopathic intracranial hypertension 05/16/2025 Telephone [facility] Ophthalmology [address] [place] [address] Outpatient Health [address] [place] [phone] Trenton Tiwari MD from Last 3 Months Allergies Active Allergy [...] on file Legal Sex Female 7:19 PM TAKER DOWN Gender Identity Female 08/11/2023 11:20 AM CDT Sexual Orientation Not on file Last Filed Vital Signs Vital Sign Reading Time Taken Comments Blood Pressure 136/77 02/04/2020 12:00 PM TAKER DOWN Pulse 72 02/04/2020 12:00 PM TAKER DOWN Temperature 36.6 C (97.8 F) 02/04/2020 12:00 PM TAKER DOWN Respiratory Rate 16 02/04/2020 12:00 PM TAKER DOWN Oxygen Saturation 99% 02/04/2020 12:00 PM TAKER DOWN Inhaled Oxygen Concentration - - Weight 118.8 kg (262 lb) 10/27/2023 2:43 PM TAKER DOWN Height 172.7 cm (5' 8) 10/27/2023 2:43 PM TAKER DOWN Body Mass Index 39.84 10/27/2023 2:43 PM TAKER DOWN Plan of Treatment Not on file Procedures [...] Notes Stable and normal visual field OU us Trenton Tiwari MD OPH VISUAL FIELD F [...] both eyes (OU). Stable both eyes (OU). us Trenton Tiwari MD OPHTH TOMOGRAPHY Fin [...] al Result from Last [address] [facility] Advance Directives For more information, please contact: [phone] * Full Code (Latest Code Status on File) Date Activated Date Inactivated Comments 02/04/2020 11:17 AM 02/04/2020 7:26 PM Care Teams Infrastructure Architect Relationship Specialty Start Date End Date Lobito Mcelroy DO [address] [place] [address] PCP - General Family Medicine 11/29/24
[2025-06-22 09:02] LABS: Hematocrit 34.2 % (35.0-49.0); Hemoglobin 11.5 g/dL (12.0-15.0); Immature Granulocyte Percent A 0.4 % (0.0-0.0); Lymphocytes Absolute Auto 1.56 K/mm3 (1.10-4.50); Mean Corpuscular HGB Conc 33.6 g/dL (32-36); Mean Corpuscular Hemoglobin 29.9 pg (27.0-31.0); Mean Corpuscular Volume 89.1 fL (78.0-102.0); Nucleated Red Blood Cells Absolute Auto 0.00 K/mm3 (0.00-0.00); Nucleated Red Blood Cells Perc 0.0 % (0-0.0); Platelet Count Result 224 K/mm3 (150-420); Red Blood Count 3.84 M/mm3 (4.20-5.40); White Blood Count 10.4 K/mm3 (4.8-10.8)
[2025-06-22 09:23] LABS: Glucose 1 Hour PP 50gm Dose 114 mg/dL
[2025-06-22 10:27] LABS: HIV 1 P24 AG Negative (Negative); HIV 1/2 AB Negative (Negative)
[2025-06-23 08:43] LABS: Syphilis IgG/IgM Antibody Non-Reactive (Nonreactive)
== END 2025-06-22 07:29 | disposition home or self-care (01) ==
LOC: CHSLAB 07:30
PROVIDERS: PCP Nurse Practitioner Family; Visit Provider Obstetrics & Gynecology
DX: Z34.90 Encounter for supervision of normal pregnancy, unspecified, unspecified trimester (principal)
CPT/HCPCS: 36415; 82947; 85025; 86593; 87806

== ENCOUNTER 2025-07-14 07:29 | Outpatient (CLI) | payer OTHER, SELFPAY ==
--- NOTE | ~2025-07-14 | US_ITS ---
EXAMINATION: US OB follow up DATE: 07/14/2025 07:56 INDICATION: Follow-up growth. Amniotic fluid index. Position. TECHNIQUE: Real-time transabdominal obstetric ultrasound. FINDINGS: Comparison ultrasound dated 04/08/2025 There is a single living fetus in vertex presentation. The placenta is anterior without placenta pre via. Cervical length is 3.4 cm. cardiac activity and movement is noted with a heart rate of 125 beats per minute. T he amniotic fluid volume is normal. CAMILLA measures 13.9 cm. The following biometric data were obtained: BPD: 88mm corresponds to gestational age 35 weeks 4 days. Head circumference: 317mm corresponds to gestational age 35 weeks 5 days. Abdominal circumference: 326mm corresponds to gestational age 36 weeks 3 days. Femur length: 70mm corresponds to gestational age 35 weeks 6 days. Estimated weight: 2854grams +/- 420grams, 88.9%.] IMPRESSION: 1. Single living fetus in presentation with an estimated gestational age of 35 weeks 3 days by init itial ultrasound. Appropriate interval growth. EDC by initial ultrasound is 08/15/2025. 2. Normal placenta. 3: Normal CAMILLA measures 13.9 cm. Reviewed, dictated and finalized at location A. IMPRESSION: 1. Single living fetus in presentation with an estimated gestational age of 3 5 weeks 3 days by inititial ultrasound. Appropriate interval growth. EDC by initial ultrasound is 08/15/2025. 2. Normal placenta. 3: Normal CAMILLA measures 13.9 cm.
--- OUTSIDE RECORDS SUMMARY | 2025-07-14 07:33 | XMS_ITS | Clinical Summary ---
Author Organization [facility] Address [address] [place] [address] Care Team Providers Care Document Management Consultant Name Role Phone Lobito Mcelroy Primary Care [...] Description 05/20/2025 9:15 AM CDT Office Visit [facility] Ophthalmology [facility] [address] [place] [phone] Trenton Tiwari MD Papilledema (Primary Dx); Idiopathic intracranial hypertension 05/20/2025 8:50 AM CDT Imaging Exam [facility] Ophthalmology [address] [phone] Papilledema 05/20/2025 8:30 AM CDT Imaging Exam [facility] Ophthalmology [address] [place] [phone] Papilledema 05/16/2025 Telephone [facility] Ophthalmology [facility] [address] [phone] Trenton Tiwari MD from Last 3 Months [...] on file Legal Sex Female 7:19 PM COLD WORKING SUPERVISOR Gender Identity Female 08/11/2023 11:20 AM CDT Sexual Orientation Not on file Obstetrics History Last Filed Vital Signs Vital Sign Reading Time Taken Comments Blood Pressure 136/77 02/04/2020 12:00 PM COLD WORKING SUPERVISOR Pulse 72 02/04/2020 12:00 PM COLD WORKING SUPERVISOR Temperature 36.6 C (97.8 F) 02/04/2020 12:00 PM COLD WORKING SUPERVISOR Respiratory Rate 16 02/04/2020 12:00 PM COLD WORKING SUPERVISOR Oxygen Saturation 99% 02/04/2020 12:00 PM COLD WORKING SUPERVISOR Inhaled Oxygen Concentration - - Weight 118.8 kg (262 lb) 10/27/2023 2:43 PM COLD WORKING SUPERVISOR Height 172.7 cm (5' 8) 10/27/2023 2:43 PM COLD WORKING SUPERVISOR Body Mass Index 39.84 10/27/2023 2:43 PM COLD WORKING SUPERVISOR Plan of Treatment Health Maintenance Due Date Last Done Comments Cervical Cancer Screening 1997 Depression Screening 1997 Hepatitis C Screening 1997 DTaP/Tdap/Td Vaccine (4 - Tdap) 2008 04/05/1998, 01/18/1998, 1997 Varicella Vaccines (1 of 2 - 13+ 2-dose series) 2010 Regular Well Visit/Exam 18-64 2015 Covid-19 Vaccine (2 - 2023-2 5 season) 2024 08/24/2021 HPV Vaccines (1 - 3-dose SCD M series) 2024 Influenza Vaccine (#1) 2025 Hepatitis B Screening Completed 1997 , 1997 Pneumococcal vaccine <65 Aged Out No longer [...] al Result from Last 3 Months Insurance [facility] Advance Directives For more information, please contact: [phone] * Full Code (Latest Code Status on File) Date Activated Date Inactivated Comments 02/04/2020 11:17 AM 02/04/2020 7:26 PM Care Teams Document Management Consultant Relationship Specialty Start Date End Date Lobito Mcelroy DO [address] [place] [address] PCP - General Family Medicine 11/29/24
--- OUTSIDE RECORDS SUMMARY | 2025-07-14 07:33 | XMS_ITS | Clinical Summary ---
Author Organization [facility] Address [address] [place] [address] Care Team Providers Care Diver Helper Name Role Phone Klever Kaela Hutchinson DO Primary Care Provider [phone] Source Comments [facility],non-owned Affiliates and Associated Physician Practices is amultiple site organization consisting of ambulatory clinics and hospital sitesin [place], [place], [place] and [place]. This disclosure is being madepursuant to the Care Everywhere program and may not contain all information available regarding this patient. Last updated 18.[facility] Allergies Active Allergy Reactions Criticality Noted Date [...] on file Legal Sex Female 5:38 AM SPORTS MEDICINE TRAINER Gender Identity Not on file Sexual Orientation [...] patient's age to complete this topic [place] [address] [place] [address] Care Teams Diver Helper Relationship Specialty Start Date End Date Kaela Ernst DO PCP - General Internal Medicine 03/16/21
--- OUTSIDE RECORDS SUMMARY | 2025-07-14 07:33 | XMS_ITS | Encounter Summary ---
Author Organization [facility] Address [address] [place] [address] Phone Care Team Providers Care Auto Bench Mechanic Name Role Phone Kaela Ernst DO Primary Care Provider [phone] Lobito Mcelroy DO Primary Care Provider Reason for Referral * Diagnostic Imaging (Routine) - Closed Specialty Diagnoses / Procedures Referred By Contac t Referred To Contact Diagnoses Idiopathic intracranial hypertension Papilledema Pseudotumor cerebri Procedures OCT, Retina - OU - Both Eyes Trenton Tiwari MD [address] [place] [address] Phone: tel: fax: [facility] (All Locations) Referral ID Status Reason Start Date Expiration Date Visits Re quested Visits Authorized [id number] Closed 02/03/2024 03/04/2025 1 1 OM MILLER * Diagnostic Imaging (Routine) - Closed Specialty Diagnoses / Procedures Referred By Contac t Referred To Contact Diagnoses Idiopathic intracranial hypertension Papilledema Pseudotumor cerebri Procedures OCT, Optic Nerve - OU - Both Eyes Trenton Tiwari MD [address] [place] [address] Phone: tel: fax: [facility] (All Locations) Referral ID Status Reason Start Date Expiration Date Visits Re quested Visits Authorized [id number] Closed 02/03/2024 03/04/2025 1 1 OM MILLER * Diagnostic Imaging (Routine) - Closed Specialty Diagnoses / Procedures Referred By Preet t Referred To Contact Diagnoses Idiopathic intracranial hypertension Papilledema Pseudotumor cerebri Procedures Pineda Visual Field - [place] [address] [place] [address] Phone: tel: fax: [facility] (All Locations) Referral ID Status Reason Start Date Expiration Date Visits Re quested Visits Authorized [id number] Closed 02/03/2024 03/04/2025 1 1 OM MILLER Encounter Details Date Type Department Care Team (Late st Contact Info) Description 02/03/2024 Orders Only [facility] Ophthalmology [address] [place] [address] Health 6th [place] [phone] Trenton Tiwari MD [facility] [address] Idiopathic intracranial hypertension (Primary Dx); Papilledema; Pseudotumor cerebri Social History Tobacco Use Types Packs/Day Years Used Date Smoking Tobacco: Former Alcohol Use Standard Drinks/Week Comments Yes 0 (1 standard drink = 0.6 oz pur e alcohol) Social Comments No Sex and Gender Information Value Date Recorded Sex Assigned at Not on file Legal Sex Female 7:19 PM CUSTOM MILLER Gender Identity Female 08/11/2023 11:20 AM CDT [...] hypertension documented in this encounter Care Teams Auto Bench Mechanic Relationship Specialty Start Date End Date Kaela Ernst DO [address] [address] PCP - General Internal Medicine 01/24/20 11/28/24 Lobito Mcelroy DO [address] [place] [address] PCP - General Family Medicine 11/29/24 documented as of this encounter
== END 2025-07-14 07:30 | disposition home or self-care (01) ==
LOC: CHSIMG 07:30
PROVIDERS: PCP Nurse Practitioner Family; Visit Provider Obstetrics & Gynecology
DX: Z34.90 Encounter for supervision of normal pregnancy, unspecified, unspecified trimester (principal); E66.01 Morbid (severe) obesity due to excess calories; Z3A.35 35 weeks gestation of pregnancy
CPT/HCPCS: 76816

== ENCOUNTER 2025-07-20 18:03 | Outpatient (CLI) | payer OTHER, SELFPAY ==
[2025-07-20] VITALS (12 sets, daily range): BP systolic 119–136; BP diastolic 67–89; PULSE 73–87; BMI 43.9
--- NOTE | ~2025-07-20 | US_ITS ---
EXAMINATION: US OB BPP wo non-stress DATE: 07/20/2025 21:21 CDT INDICATION: Hypertension TECHNIQUE: Real-time transabdominal obstetric ultrasound. FINDINGS: 07/14/2025 There is a single living fetus in vertex presentation. The placenta is anterior without placenta previa. cardiac activity and movement is noted with a heart rate of 125 beats per minute. Biophysical profile: breathin of 2 movement: 2 of 2 tone: 2 of 2 Amniotic flud pocket: 2 of 2 Total score: 8 of 8 IMPRESSION: 1. Single living intrauterine in vertex presentation. 2: Total biophysical profile score of 8/. Reviewed, dictated and finalized at location A.
[2025-07-20 19:05] LABS: Hematocrit 31.2 % (37.0-47.0); Hemoglobin 10.5 g/dL (12.0-15.0); Immature Granulocyte Percent A 0.5 % (0-0.5); Lymphocytes Absolute Auto 1.59 K/mm3 (0.9-3.2); Mean Corpuscular HGB Conc 33.7 g/dl (32-36); Mean Corpuscular Hemoglobin 29.0 pg (26-34); Mean Corpuscular Volume 86.2 fl (80-100); Nucleated Red Blood Cells Absolute Auto 0.000 K/mm3 (0.0-0.012); Nucleated Red Blood Cells Perc 0.0 % (0.0-0.2); Platelet Count Result 211 k/mm3 (150-375); Red Blood Count 3.62 M/mm3 (4.2-5.4); White Blood Count 8.7 K/mm3 (4.5-10.0)
[2025-07-20 19:16] LABS: Alanine Aminotransferase 15 U/L (6-35); Albumin Level 3.4 g/dL (3.5-5.1); Alkaline Phosphatase 99 U/L (38-126); Anion Gap 5 mmol/L (4-12); Aspartate Amino Transferase 26 U/L (14-36); Bilirubin,Total 0.2 mg/dL (0.2-1.3); Blood Urea Nitrogen 8 mg/dL (7-17); Calcium 8.7 mg/dL (8.4-10.2); Carbon Dioxide 21 mmol/L (22-30); Chloride 107 mmol/L (98-107); Estimated CRCL calculation 163 ml/min; Estimated Glomerular Filt Rate > 60; Glucose 111 mg/dL (65-110); Potassium 3.7 mmol/L (3.4-5.0); Sodium 133 mmol/L (137-145); Total Protein 6.4 g/dL (6.3-8.2); Uric Acid 4.4 mg/dL (2.5-7.5)
[2025-07-20 19:43] LABS: Add Urine Microscopic? YES; Appearance Urine Cloudy (Clear); Glucose Urine UA Negative (Negative); Leukocyte Esterase Ur 2+ LEU/UL (Negative); Need Manual Microscopic Reviewed; Nitrate Urine Negative (Negative); Non Pathogenic Casts 0-2; Specific Grav Ur 1.035 (1.001-1.035)
[2025-07-20 20:20] LABS: Total Protein Urine Random < 5 mg/dL; Ur Ttl Prot Creatinine Ratio < 0.02 mg/mg (0-0.20)
--- NOTE | 2025-07-20 20:20 | PC.NURSE ---
Dr. Ybarra on unit and reviewed BP's and lab results except urine total protein creatinine is still pending. OK to discharge to home if BPP is 8/8.
[2025-07-20] MEDS: CALCIUM CARBONATE (TUMS) 500 MG (200 MG ELEMENTAL) PO (20:48)
== END 2025-07-20 21:25 | disposition home or self-care (01) ==
LOC: ANHOBOP 18:09 → ANHOBPP 19:01
PROVIDERS: PCP Nurse Practitioner Family; Visit Provider Obstetrics & Gynecology
DX: O13.9 Gestational [pregnancy-induced] hypertension without significant proteinuria, unspecified trimester (principal); Z3A.00 Weeks of gestation of pregnancy not specified
CPT/HCPCS: 36415; 59025; 76819; 80053; 81001; 82570; 84156; 84550; 85025; 87086; 99199; A9270

== ENCOUNTER 2025-07-31 12:10 | Outpatient (CLI) | payer OTHER, SELFPAY ==
[2025-07-31 12:10] VITALS: BMI 43.8
[2025-07-31 13:45] VITALS: BP 125/88; PULSE 80
[2025-07-31 13:50] LABS: Hematocrit 33.8 % (37.0-47.0); Hemoglobin 11.1 g/dL (12.0-15.0); Immature Granulocyte Percent A 0.4 % (0-0.5); Lymphocytes Absolute Auto 1.35 K/mm3 (0.9-3.2); Mean Corpuscular HGB Conc 32.8 g/dl (32-36); Mean Corpuscular Hemoglobin 28.5 pg (26-34); Mean Corpuscular Volume 86.7 fl (80-100); Nucleated Red Blood Cells Absolute Auto 0.000 K/mm3 (0.0-0.012); Nucleated Red Blood Cells Perc 0.0 % (0.0-0.2); Platelet Count Result 214 k/mm3 (150-375); Red Blood Count 3.90 M/mm3 (4.2-5.4); White Blood Count 8.0 K/mm3 (4.5-10.0)
[2025-07-31 13:56] LABS: Add Urine Microscopic? YES; Appearance Urine Cloudy (Clear); Glucose Urine UA Negative (Negative); Leukocyte Esterase Ur 2+ LEU/UL (Negative); Nitrate Urine Negative (Negative); Non Pathogenic Casts 0-2; Specific Grav Ur 1.016 (1.001-1.035)
[2025-07-31] MEDS: ACETAMINOPHEN/BUTALBITAL/CAFFEINE 325-50-40 MG TABLET (FIORICET) 1 TAB PO (13:58)
[2025-07-31 13:59] LABS: Total Protein Urine Random 12 mg/dL; Ur Ttl Prot Creatinine Ratio 0.10 mg/mg (0-0.20)
[2025-07-31 14:01] VITALS: BP 131/85; PULSE 82
[2025-07-31 14:02] LABS: Alanine Aminotransferase 12 U/L (6-35); Albumin Level 3.5 g/dL (3.5-5.1); Alkaline Phosphatase 107 U/L (38-126); Anion Gap 6 mmol/L (4-12); Aspartate Amino Transferase 22 U/L (14-36); Bilirubin,Total 0.2 mg/dL (0.2-1.3); Blood Urea Nitrogen 7 mg/dL (7-17); Calcium 9.0 mg/dL (8.4-10.2); Carbon Dioxide 21 mmol/L (22-30); Chloride 105 mmol/L (98-107); Estimated Glomerular Filt Rate > 60; Glucose 94 mg/dL (65-110); Potassium 3.8 mmol/L (3.4-5.0); Sodium 132 mmol/L (137-145); Total Protein 6.6 g/dL (6.3-8.2); Uric Acid 4.6 mg/dL (2.5-7.5)
[2025-07-31 14:15] VITALS: BP 133/79; PULSE 73
[2025-07-31 14:30] VITALS: BP 136/86; PULSE 82
[2025-07-31 15:14] VITALS: BP 131/85; PULSE 82
== END 2025-07-31 15:15 | disposition home or self-care (01) ==
LOC: ANHOBOP 12:16 → ANHOBPP 12:18
PROVIDERS: Obstetrics & Gynecology; PCP Nurse Practitioner Family; Visit Provider Obstetrics & Gynecology
DX: O13.9 Gestational [pregnancy-induced] hypertension without significant proteinuria, unspecified trimester (principal); O09.90 Supervision of high risk pregnancy, unspecified, unspecified trimester; R51.9 Headache, unspecified
CPT/HCPCS: 36415; 59025; 80053; 81001; 82570; 84156; 84550; 85025; 99199; A9270

== ENCOUNTER 2025-08-03 10:57 | Outpatient (CLI) | payer OTHER, SELFPAY ==
[2025-08-03 11:42] LABS: Hematocrit 31.1 % (37.0-47.0); Hemoglobin 10.4 g/dL (12.0-15.0); Immature Granulocyte Percent A 0.4 % (0-0.5); Lymphocytes Absolute Auto 1.38 K/mm3 (0.9-3.2); Mean Corpuscular HGB Conc 33.4 g/dl (32-36); Mean Corpuscular Hemoglobin 29.0 pg (26-34); Mean Corpuscular Volume 86.6 fl (80-100); Nucleated Red Blood Cells Absolute Auto 0.000 K/mm3 (0.0-0.012); Nucleated Red Blood Cells Perc 0.0 % (0.0-0.2); Platelet Count Result 212 k/mm3 (150-375); Red Blood Count 3.59 M/mm3 (4.2-5.4); White Blood Count 6.7 K/mm3 (4.5-10.0)
[2025-08-03 11:46] VITALS: BP 145/97; PULSE 87
[2025-08-03 11:48] LABS: Alanine Aminotransferase 14 U/L (6-35); Albumin Level 3.5 g/dL (3.5-5.1); Alkaline Phosphatase 106 U/L (38-126); Anion Gap 7 mmol/L (4-12); Aspartate Amino Transferase 24 U/L (14-36); Bilirubin,Total 0.2 mg/dL (0.2-1.3); Blood Urea Nitrogen 7 mg/dL (7-17); Calcium 8.9 mg/dL (8.4-10.2); Carbon Dioxide 18 mmol/L (22-30); Chloride 108 mmol/L (98-107); Estimated Glomerular Filt Rate > 60; Glucose 107 mg/dL (65-110); Potassium 3.8 mmol/L (3.4-5.0); Sodium 133 mmol/L (137-145); Total Protein 6.4 g/dL (6.3-8.2); Uric Acid 5.1 mg/dL (2.5-7.5)
[2025-08-03 12:01] VITALS: BP 145/88; PULSE 81
[2025-08-03 12:04] LABS: Add Urine Microscopic? YES; Appearance Urine Clear (Clear); Glucose Urine UA Negative (Negative); Leukocyte Esterase Ur 1+ LEU/UL (Negative); Need Manual Microscopic Reviewed; Nitrate Urine Negative (Negative); Non Pathogenic Casts 0-2; Specific Grav Ur 1.011 (1.001-1.035)
[2025-08-03 12:16] VITALS: BP 143/86; PULSE 84
[2025-08-03 12:31] VITALS: BP 141/92; PULSE 86
[2025-08-03 12:46] VITALS: BP 136/85; PULSE 82
[2025-08-03 12:50] LABS: Total Protein Urine Random 22 mg/dL; Ur Ttl Prot Creatinine Ratio 0.25 mg/mg (0-0.20)
[2025-08-03 13:40] VITALS: BP 145/97; PULSE 87; TEMP 36.6
== END 2025-08-03 13:40 | disposition home or self-care (01) ==
LOC: ANHOBOP 11:00 → ANHLDR 11:02
PROVIDERS: PCP Nurse Practitioner Family; Visit Provider Obstetrics & Gynecology
DX: O13.9 Gestational [pregnancy-induced] hypertension without significant proteinuria, unspecified trimester (principal); Z3A.00 Weeks of gestation of pregnancy not specified
CPT/HCPCS: 36415; 59025; 80053; 81001; 82570; 84156; 84550; 85025; 87086; 99199

== ENCOUNTER 2025-08-06 12:45 | Outpatient (RCR) | payer OTHER, SELFPAY ==
[2025-08-06 13:29] LABS: Hematocrit 30.3 % (37.0-47.0); Hemoglobin 10.0 g/dL (12.0-15.0); Immature Granulocyte Percent A 0.4 % (0-0.5); Lymphocytes Absolute Auto 1.37 K/mm3 (0.9-3.2); Mean Corpuscular HGB Conc 33.0 g/dl (32-36); Mean Corpuscular Hemoglobin 28.4 pg (26-34); Mean Corpuscular Volume 86.1 fl (80-100); Nucleated Red Blood Cells Absolute Auto 0.000 K/mm3 (0.0-0.012); Nucleated Red Blood Cells Perc 0.0 % (0.0-0.2); Platelet Count Result 207 k/mm3 (150-375); Red Blood Count 3.52 M/mm3 (4.2-5.4); White Blood Count 7.6 K/mm3 (4.5-10.0)
[2025-08-06 13:40] LABS: Alanine Aminotransferase 12 U/L (6-35); Albumin Level 3.3 g/dL (3.5-5.1); Alkaline Phosphatase 107 U/L (38-126); Anion Gap 6 mmol/L (4-12); Aspartate Amino Transferase 22 U/L (14-36); Bilirubin,Total 0.2 mg/dL (0.2-1.3); Blood Urea Nitrogen 6 mg/dL (7-17); Calcium 8.3 mg/dL (8.4-10.2); Carbon Dioxide 20 mmol/L (22-30); Chloride 108 mmol/L (98-107); Estimated Glomerular Filt Rate > 60; Glucose 115 mg/dL (65-110); Potassium 3.5 mmol/L (3.4-5.0); Sodium 134 mmol/L (137-145); Total Protein 6.2 g/dL (6.3-8.2); Uric Acid 5.6 mg/dL (2.5-7.5)
[2025-08-06 14:10] VITALS: BP 131/85; PULSE 83
== END 2025-08-13 11:21 | disposition other institution (70) ==
LOC: ANHOBOP 12:45
PROVIDERS: PCP Nurse Practitioner Family; Visit Provider Obstetrics & Gynecology
DX: O13.9 Gestational [pregnancy-induced] hypertension without significant proteinuria, unspecified trimester (principal)
CPT/HCPCS: 36415; 59025; 80053; 84550; 85025

== ENCOUNTER 2025-08-08 10:29 | Inpatient (IN) | payer OTHER, SELFPAY ==
[2025-08-08] VITALS (167 sets, daily range): BP systolic 96–182; BP diastolic 61–138; PULSE 61–102; TEMP 36.8–37.2; O2SAT 90–100; BMI 43.9
--- OUTSIDE RECORDS SUMMARY | 2025-08-08 10:53 | XMS_ITS | Clinical Summary ---
Author Organization [facility] Address [address] [place] [address] Care Team Providers Care Optical Glass Inspector Name Role Phone Klever Kaela Hutchinson DO Primary Care Provider [phone] Source Comments [facility],non-owned Affiliates and Associated Physician Practices is amultiple site organization consisting of ambulatory clinics and hospital sitesin [place], [place] and [place]. This disclosure is being madepursuant to the Care Everywhere program and may not contain all information available regarding this patient. Last updated 18.[facility] Allergies Active Allergy Reactions Criticality Noted Date [...] on file Legal Sex Female 5:38 AM CARDIOVASCULAR SURGEON Gender Identity Not on file Sexual Orientation [...] of 3 - 19+ 3-dose series) 2016 DEPRESSION SCREENING 12/01/2024 COVID-19 VACCINE (1 - 2023-2 5 season) 2025 INFLUENZA VACCINE (#1) 2025 ZOSTER VACCINE (1 [...] patient's age to complete this topic [place] [address] [address] Care Teams Optical Glass Inspector Relationship Specialty Start Date End Date Kaela Ernst DO PCP - General Internal Medicine 03/16/21
--- OUTSIDE RECORDS SUMMARY | 2025-08-08 10:53 | XMS_ITS | Clinical Summary ---
Author Organization [facility] Address [address] [place] [address] Care Team Providers Care Dental Claims Processor Name Role Phone Lobito Mcelroy Primary Care [...] Active Additional Information Patient not taking.Reported on 07/29/2025 PNV no.95/ferrous fum/folic ac ( ORAL) Take by mouth Active magnesium gluconate 200 mg tabletIndications: hypomagnesemia 1 tablet (200 mg total) Active Active Problems Problem Noted Date Diagnosed Date Clostridium difficile diarrhea 06/25/2021 Recurrent sinusitis 06/25/2021 Recurrent major depression 03/07/2021 Idiopathic intracranial hypertension 04/19/2020 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 Migraine 10/18/2019 Encounters Date Type Department Care Team Description 07/29/2025 9:45 AM CDT Office Visit [facility] Medicine Ophthalmology [address] [phone] Trenton Tiwari MD Unspecified disorder of visual pathways (Primary Dx); Papilledema; Idiopathic intracranial hypertension 07/29/2025 9:20 AM CDT Imaging Exam [facility] Medicine Ophthalmology [address] [place] [phone] Unspecified disorder of visual pathways 05/20/2025 9:15 AM CDT Office Visit [facility] Medicine Ophthalmology [address] [place] [phone] Trenton Tiwari MD Papilledema (Primary Dx); Idiopathic intracranial hypertension 05/20/2025 8:50 AM CDT Imaging Exam [facility] Medicine Ophthalmology [address] [place] [phone] Papilledema 05/20/2025 8:30 AM CDT Imaging Exam [facility] Ophthalmology [address] [place] [phone] Papilledema 05/16/2025 Telephone [facility] Ophthalmology [address] [place] [phone] Trenton Tiwari MD from Last 3 Months [...] on file Legal Sex Female 7:19 PM SPAR CAP BEVELER Gender Identity Female 08/11/2023 11:20 AM CDT Sexual Orientation Not on file Obstetrics History Last Filed Vital Signs Vital Sign Reading Time Taken Comments Blood Pressure 136/77 02/04/2020 12:00 PM SPAR CAP BEVELER Pulse 72 02/04/2020 12:00 PM SPAR CAP BEVELER Temperature 36.6 C (97.8 F) 02/04/2020 12:00 PM SPAR CAP BEVELER Respiratory Rate 16 02/04/2020 12:00 PM SPAR CAP BEVELER Oxygen Saturation 99% 02/04/2020 12:00 PM SPAR CAP BEVELER Inhaled Oxygen Concentration - - Weight 118.8 kg (262 lb) 10/27/2023 2:43 PM SPAR CAP BEVELER Height 172.7 cm (5' 8) 10/27/2023 2:43 PM SPAR CAP BEVELER Body Mass Index 39.84 10/27/2023 2:43 PM SPAR CAP BEVELER Plan of Treatment Health Maintenance Due Date Last Done Comments Cervical Cancer Screening 1997 Depression Screening 1997 Hepatitis C Screening 1997 DTaP/Tdap/Td Vaccine (4 - Tdap) 2008 04/05/1998, 01/18/1998, 1997 Varicella Vaccines (1 of 2 - 13+ 2-dose series) 2010 Regular Well Visit/Exam 18-64 2015 HPV Vaccines (1 - 3-dose SCD M series) 2024 Covid-19 Vaccine (2 - 2024-2 6 season) 2025 08/24/2021 Influenza Vaccine (#1) 2025 Hepatitis B Screening Completed 1997 , 1997 Pneumococcal vaccine <65 Aged Out No longer eligible based on patient's age to complete this topic Procedures Procedure Name Priority Date/Time Associated Diagnosis Comments OCT, RETINA - OU - BOTH EYES Routine 07/29/2025 9:01 AM CDT Unspecified disorder of visual pathways OCT, OPTIC NERVE - OU - BOTH EYES Routine 07/29/2025 9:01 AM CDT Unspecified disorder of visual pathways PINEDA VISUAL FIELD - OU - BOTH EYES Routine 05/20/2025 8:43 AM CDT Papilledema OCT, RETINA - OU - BOTH EYES Routine 05/20/2025 8:39 AM CDT Papilledema OCT, OPTIC NERVE - OU - BOTH EYES Routine 05/20/2025 8:39 AM CDT Papilledema from Last 3 Months Results * OCT, Retina - OU - Both Eyes (07/29/2025 9:01 AM CDT) Central Macular Thickness OS 269 mircometers CONTINUUM Central Macular Thickness OD 267 micrometers CONTINUUM Anatomical Region Laterality Modality Head Other Narrative 07/29/2025 10:26 AM CDT Right Eye Quality was good. Scan locations included subfoveal. Progression has been stable. Findings include normal foveal contour. Macular thickness was 267 micrometers. Left Eye Quality was good. Scan locations included subfoveal. Progression has been stable. Findings include normal foveal contour. Macular thickness was 269 mircometers. Notes GCL OD: 88 OS: 89 Normal macular and ganglion cell layer (GCL) thickness both eyes (OU). Stable both eyes (OU). Trenton Tiwari MD OPHTH TOMOGRAPHY Fin al Result * OCT, Optic Nerve - OU - Both Eyes (07/29/2025 9:01 AM CDT) RNFL OS 120 micrometers CONTINUUM RNFL OD 122 micrometers CONTINUUM Anatomical Region Laterality Modality Head Other Narrative 07/29/2025 10:25 AM CDT Right Eye Reliability was good. Average RNFL thickness 122 micrometers. Left Eye Reliability was good. Average RNFL thickness 120 micrometers. Notes Mild, diffuse retinal nerve fiber layer thickening OU. Mild thinning since prior scan OU. Trenton Tiwari MD OPHTH TOMOGRAPHY Fin al Result * Pineda Visual Field - OU - [...] normal visual field OU Trenton Tiwari MD [facility] VISUAL FIELD F inal Result * OCT, [...] al Result from Last 3 Months Insurance [facility] Advance Directives For more information, please contact: [phone] * Full Code (Latest Code Status on File) Date Activated Date Inactivated Comments 02/04/2020 11:17 AM 02/04/2020 7:26 PM Care Teams Dental Claims Processor Relationship Specialty Start Date End Date Lobito Mcelroy DO [address] [place] [address] PCP - General Family Medicine 11/29/24
--- OUTSIDE RECORDS SUMMARY | 2025-08-08 10:53 | XMS_ITS | Encounter Summary ---
Author Organization [facility] Address [address] [place] [address] Phone Care Team Providers Care Director Market Intelligence Name Role Phone Kaela Ernst DO Primary Care Provider [phone] Lobito Mcelroy DO Primary Care Provider Reason for Referral * Diagnostic Imaging (Routine) - Closed Specialty Diagnoses / Procedures Referred By Contac t Referred To Contact Diagnoses Idiopathic intracranial hypertension Papilledema Pseudotumor cerebri Procedures OCT, Retina - OU - Both Eyes Trenton Tiwari MD [address] [place] [address] Phone: tel: fax: [facility] (All Locations) Referral ID Status Reason Start Date Expiration Date Visits Re quested Visits Authorized [id number] Closed 02/03/2024 03/04/2025 1 1 MBLER INSULATOR * Diagnostic Imaging (Routine) - Closed Specialty Diagnoses / Procedures Referred By Contac t Referred To Contact Diagnoses Idiopathic intracranial hypertension Papilledema Pseudotumor cerebri Procedures OCT, Optic Nerve - OU - Both Eyes Trenton Tiwari MD [address] [place] [address] Phone: tel: fax: [facility] (All Locations) Referral ID Status Reason Start Date Expiration Date Visits Re quested Visits Authorized [id number] Closed 02/03/2024 03/04/2025 1 1 MBLER INSULATOR * Diagnostic Imaging (Routine) - Closed Specialty Diagnoses / Procedures Referred By Preet maldonado Referred To Contact Diagnoses Idiopathic intracranial hypertension Papilledema Pseudotumor cerebri Procedures Pineda Visual Field - OU - Both Eyes Trenton Tiwari MD [address] [place] [address] Phone: tel: fax: [facility] (All Locations) Referral ID Status Reason Start Date Expiration Date Visits Re quested Visits Authorized [id number] Closed 02/03/2024 03/04/2025 1 1 MBLER INSULATOR Encounter Details Date Type Department Care Team (Late st Contact Info) Description 02/03/2024 Orders Only [facility] Medicine Ophthalmology [address] [place] [address] Health 6th [place] [phone] Trenton Tiwari MD [address] [place] [address] Idiopathic intracranial hypertension (Primary Dx); Papilledema; Pseudotumor cerebri Social History Tobacco Use Types Packs/Day Years Used Date Smoking Tobacco: Former Alcohol Use Standard Drinks/Week Comments Yes 0 (1 standard drink = 0.6 oz pur e alcohol) Social Comments No Sex and Gender Information Value Date Recorded Sex Assigned at Not on file Legal Sex Female 7:19 PM ASSEMBLER INSULATOR Gender Identity Female 08/11/2023 11:20 AM CDT [...] OD, slight thinning since prior scan OS. Trenton Tiwari MD OPHTH TOMOGRAPHY Fin al Result documented in this encounter Visit Diagnoses Diagnosis Idiopathic intracranial hypertension- Primary Benign intracranial hypertension Papilledema Unspecified papilledema Pseudotumor cerebri Benign intracranial hypertension Idiopathic intracranial hypertension Benign intracranial hypertension Papilledema Unspecified papilledema Pseudotumor cerebri Benign intracranial hypertension documented in this encounter Care Teams Director Market Intelligence Relationship Specialty Start Date End Date Kaela Ernst DO [address] [address] PCP - General Internal Medicine 01/24/20 11/28/24 Lobito Mcelroy DO [address] [place] [address] PCP - General Family Medicine 11/29/24 documented as of this encounter
--- NOTE | 2025-08-08 11:09 | LDADM ---
This patient, Erin Caputo, was admitted to Labor/Delivery/Recovery 106 on 08/08/25 at 10:29. Plans for labor, pain management and were discussed with patient. Patient/family oriented to hospital policies and general routines including ID bracelet, bed and alarms, visiting hours, pain management, procedures, bathroom and other care routines, personal items, smoking policy, room service/diet and guest tray routines, infant security routines, and visiting hours. Patient/Family are encouraged to report perceived risks to care and to ask questions if they do not understand what they are told or what they should do. See OBIX for further documentation.
[2025-08-08 11:17] LABS: Hematocrit 30.5 % (37.0-47.0); Hemoglobin 10.2 g/dL (12.0-15.0); Immature Granulocyte Percent A 0.4 % (0-0.5); Lymphocytes Absolute Auto 1.47 K/mm3 (0.9-3.2); Mean Corpuscular HGB Conc 33.4 g/dl (32-36); Mean Corpuscular Hemoglobin 28.5 pg (26-34); Mean Corpuscular Volume 85.2 fl (80-100); Nucleated Red Blood Cells Absolute Auto 0.000 K/mm3 (0.0-0.012); Nucleated Red Blood Cells Perc 0.0 % (0.0-0.2); Platelet Count Result 210 k/mm3 (150-375); Red Blood Count 3.58 M/mm3 (4.2-5.4); White Blood Count 7.7 K/mm3 (4.5-10.0)
[2025-08-08 11:34] LABS: Alanine Aminotransferase 13 U/L (6-35); Albumin Level 3.2 g/dL (3.5-5.1); Alkaline Phosphatase 119 U/L (38-126); Anion Gap 6 mmol/L (4-12); Aspartate Amino Transferase 21 U/L (14-36); Bilirubin,Total 0.2 mg/dL (0.2-1.3); Blood Urea Nitrogen 6 mg/dL (7-17); Calcium 8.7 mg/dL (8.4-10.2); Carbon Dioxide 18 mmol/L (22-30); Chloride 107 mmol/L (98-107); Estimated CRCL calculation 159 ml/min; Estimated Glomerular Filt Rate > 60; Glucose 117 mg/dL (65-110); Potassium 3.6 mmol/L (3.4-5.0); Sodium 131 mmol/L (137-145); Total Protein 6.2 g/dL (6.3-8.2); Uric Acid 4.8 mg/dL (2.5-7.5)
[2025-08-08] MEDS: LACTATED RINGERS 1,000 ML 125 ML IV CONT ×3 (11:41→16:45)
[2025-08-08] MEDS: OXYTOCIN 30 UNITS/NS 500 ML 30 UNITS/500 ML BAG 6 UNITS IV CONT (11:42)
[2025-08-08 12:02] LABS: Syphilis IgG/IgM Antibody Non-Reactive (Nonreactive)
[2025-08-08] MEDS: ceFAZolin 2 GM in SODIUM CHLORIDE 0.9% IV 50 ML 100 ML IVPB (14:27)
--- NOTE | 2025-08-08 16:26 | WPDANESEPPF ---
Anes - Initial Pre Proc Eval Procedure: labor epidural Date/Time: 08/08/25 16:26 Surgeon: Mike Owen MD Pre Op Diagnosis: labor pain Pre Op Diagnosis: IOL Patient Data Age: 29 Gender: F Height: 1.7 m Weight: 127.2 kg Last Vital Signs Temp 36.8 C 08/08/25 15:00 Pulse 75 08/08/25 16:20 BP 148/81 H 08/08/25 16:20 Pulse Ox 98 08/08/25 16:24 O2 Del Method Room Air 08/08/25 10:29 Allergies Allergy/AdvReac Type Severity Reaction Status Date / Time Penicillins Allergy Intermediate rash Verified 08/08/25 09:32 Home Medications ?Medication ?Instructions ?Recorded ?Confirmed ?Type vits no.126-ferrous fum 1 tablet PO DAILY 01/03/25 08/08/25 History 28 mg iron-folic acid 800 mcg tablet (Classic ) levocetirizine 2.5 mg/5 mL oral 2.5 mg PO DAILY 07/15/25 08/08/25 History solution (Xyzal) acetaminophen 500 mg tablet 1,000 mg PO .q8hr PRN headache 08/06/25 08/08/25 History (Acetaminophen Extra Strength) bdbtldx-wsqvjqmlnjgej-tmeijjtx 250 1 tablet PO DAILY PRN headache 08/06/25 08/08/25 History mg-250 mg-65 mg tablet (Excedrin Extra Strength) Laboratory Tests 08/08/25 11:04 WBC 7.7 K/mm3 (4.5-10.0) RBC 3.58 L M/mm3 (4.2-5.4) Hgb 10.2 L g/dL (12.0-15.0) Hct 30.5 L % (37.0-47.0) MCV 85.2 fl (80-100) MCH 28.5 pg (26-34) MCHC 33.4 g/dl (32-36) RDW 12.8 % (11.5-14.5) Plt Count 210 k/mm3 (150-375) MPV 11.3 H fl (7.4-10.4) Immature Gran % (Auto) 0.4 % (0-0.5) Neut % (Auto) 72.3 % (45.5-73.1) Lymph % (Auto) 19.2 % (18.3-44.2) [place] % (Auto) 5.4 % (2.6-8.5) Eos % (Auto) 2.0 % (0-4.4) Baso % (Auto) 0.7 % (0.2-1.2) Lymph # (Auto) 1.47 K/mm3 (0.9-3.2) [place] # (Auto) 0.4 K/mm3 (0.1-0.6) Eos # (Auto) 0.2 K/mm3 (0-0.3) Baso # (Auto) 0.1 K/mm3 (0.0-0.1) Abs Immat Gran (auto) 0.03 K/mm3 (0.00-0.031) Absolute Neuts (auto) 5.5 K/mm3 (1.3-6.7) Absolute Nucleated RBC 0.000 K/mm3 (0.0-0.012) Nucleated RBC % 0.0 % (0.0-0.2) Sodium 131 L mmol/L (137-145) Potassium 3.6 mmol/L (3.4-5.0) Chloride 107 mmol/L (98-107) Carbon Dioxide 18 L mmol/L (22-30) Anion Gap 6 mmol/L (4-12) BUN 6 L mg/dL (7-17) Creatinine 0.63 L mg/dL (0.7-1.0) Estim Creat Clear Calc 159 ml/min Estimated GFR > 60 (59 - ) Glucose 117 H mg/dL (65-110) Uric Acid 4.8 mg/dL (2.5-7.5) Calcium 8.7 mg/dL (8.4-10.2) Total Bilirubin 0.2 mg/dL (0.2-1.3) AST 21 U/L (14-36) ALT 13 U/L (6-35) Alkaline Phosphatase 119 U/L (38-126) Total Protein 6.2 L g/dL (6.3-8.2) Albumin 3.2 L g/dL (3.5-5.1) Syphilis IgG/IgM Ab Non-reactive (Nonreactive) Blood Type O Positive Antibody Screen Negative Patient hx anesthesia problems: none Family hx anesthesia problems: none Results Review: All pre-operative results and documents have been reviewed as part of the pre-operative evaluation. [facility] Past Medical History Medical History Pseudotumor cerebri syndrome TMJ (dislocation of temporomandibular joint) Concussion Family History Family History Mother Hypertension Grandparent Hyperthyroidism Glaucoma Social History Social History Smoking status: Former smoker Tobacco type: e-cigarettes/vaping Second hand tobacco smoke exposure: No Alcohol intake: never Substance use: never Substance use type: marijuana Other substance usage details: 2 x weeek Do You Feel Safe in your Home?: Yes Lack of Transportation: No Lack of Food: Never True Current Housing: I Have Housing Concerned About Future Housing: No Difficulty Paying Gas/Electric Bills: No Difficulty Paying for Meds: No Currently Unemployed: No Education: Bachelor's Degree Difficulty w/ Childcare or Family Care: No Living arrangements: with family Additional living arrangements comments: Occupation/Education: occupation 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 Informed Consent: The patient's anesthetic plan and its attendant risks and benefits were discussed with the patient/family/POA. Questions were solicited and answers provided to the satisfaction of the patient/family/POA.
[2025-08-08] MEDS: CALCIUM CARBONATE (TUMS) 500 MG (200 MG ELEMENTAL) 400 MG PO (19:39)
[2025-08-08] MEDS: ceFAZolin 1 GM in SODIUM CHLORIDE 0.9% IV 50 ML 100 ML IVPB (22:29)
[2025-08-09] VITALS (201 sets, daily range): BP systolic 122–177; BP diastolic 59–117; PULSE 67–164; RESP 16–20; TEMP 36.8–37.4; O2SAT 88–100
[2025-08-09] MEDS: MAGNESIUM SULF 4 GM/WATER100ML 4 GM/100 ML BAG IVPB (04:07)
[2025-08-09] MEDS: MAGNESIUM SULF 20GM/WATER500ML 500 ML 50 MG IV CONT ×2 (04:39→14:26)
[2025-08-09] MEDS: ceFAZolin 1 GM in SODIUM CHLORIDE 0.9% IV 50 ML 100 ML IVPB (08:25)
--- NOTE | 2025-08-09 10:06 | S_PTH ---
PATIENT: Erin Caputo LOC: [facility] U#:[id number] AGE/SX: 29/F ROOM: 282 RE08/08/[address]: Mike Owen MD : 1995 BED: 00 DIS: 08/11/2025 SPEC #: [id number] RECD: 08/09/25 13:36 STATUS: NOEL REQ #: [id number] KAITLIN: 08/09/25 10:[address]: Mike Owen DEPT: [facility] Surgical RECD BY: Grace Smith ENTERED: 08/09/25 13:36 SP TYPE: Surgical OTHR DR: Afua Eldridge, YESSENIA Tissues: A - Placenta Procedures: Hematoxylin and Eosin Stain Gross and Microscopic Level 5
[2025-08-09] MEDS: OXYTOCIN 30 UNITS/NS 500 ML 30 UNITS/500 ML BAG 999 UNITS IV CONT (10:11)
--- NOTE | 2025-08-09 10:24 | WPDHPUPDATE1 ---
History and Physical Update Update Date/Time: 08/09/25 10:24 History and Physical has been reviewed, including an updated exam of the patient. There are NO changes in the patient's condition. Risks, benefits, and alternatives have been discussed and questions answered. Patient agrees to proceed with procedure.
--- NOTE | 2025-08-09 10:24 | WPDOBADMIT ---
Obstetrics - Admit Note Admission Note: record reviewed. No pertinent additions to the history and/or any subsequent changes in the physical findings that are not consistent with the expected course of the were found. Additions to the history and/or subsequent changes in the physical findings follow. None.
--- NOTE | 2025-08-09 10:24 | PM.OBPRVD ---
OB - Vaginal Delivery Note Procedure Delivery date: 08/09/25 Events: Preeclampsia w severe features Induction method: AROM and Per Pitocin Protocol Delivery monitor: External FHT and External Uterine Route of delivery: Episiotomy description: None Laceration Description: Perineal - 1st Degree Delivery repair: chromic Specimen: Yes Quantitative Blood Loss (ml): 500 Anesthesia type: Epidural Disposition: Floor Complications: No immediate complications Narrative: Patient prepped and draped in the usual manner for this procedure. Maternal expulsive efforts readily delivered vertex, rest of baby delivered without difficulty. Cord clamped cut placenta delivered spontaneously. First-degree laceration was noted and this was rendered hemostatic with 0 chromic in a running interlocking manner. Hemostasis and approximation noted. Uterus was well contracted. Immediate postoperative condition of mother baby both excellent. [place] Baby Gestational Age by Date: 38 Infant gender: Female Weight (pounds): 8 Weight (ounces): 1 presentation: vertex Placenta delivery description: Spontaneous Cord Vessel Description: 3 Vessels score one minute: 8 score five minutes: 9
[2025-08-09] MEDS: ACETAMINOPHEN 325 MG TABLET 650 MG PO ×2 (11:30→19:38)
[2025-08-09] MEDS: BENZOCAINE 20% AER SPR (*SP) 56 GM CAN 1 SPRAY TOPICAL (11:34)
[2025-08-09] MEDS: WITCH HAZEL 40 PADS 1 PAD TOPICAL (11:35)
[2025-08-09] MEDS: LABETALOL HCL 100 MG TABLET 200 MG PO ×2 (12:26→19:45)
--- NOTE | 2025-08-09 14:22 | OBPPTRN ---
Patient transferred to post room #282 via wheelchair. Support person- Spouse Yonatan present. Oriented to unit, room, information board, rooming in, admission packet and security measures. Patient verbalizes understanding.
--- NOTE | 2025-08-09 16:10 | PC.NURSE ---
Patient attempting to breastfeed after infant's blood glucose check is WNL. Baby is eager and searches for the breast, bobbing her head and opening her mouth. Mom started in cradle hold and she was shown how to use cross cradle for better control of baby's head. Mom is very responsive and open to trying new positions. We tried the football and the laid back position but we were unable to achieve a latch. Mom has a low profile nipple that comes out more with stimulation. Baby gave very good effort to latch but despite many attempts, she was never able to maintain a latch. Baby is fussy at breast and then has brief periods of rest before rooting and fussing again. Mom and baby appeared to need a break before trying to latch again. Mom is encouraged to keep baby skin to skin and allow her to shaq her head toward the breast if she is interested. Mom prefers baby is swaddled and she has visitors coming to see her. Primary RN notified of unsuccessful feeding attempt.
[2025-08-09] MEDS: LACTATED RINGERS 1,000 ML 75 ML IV CONT (17:00)
[2025-08-09] MEDS: DOCUSATE SODIUM 100 MG CAPSULE PO (17:35)
[2025-08-09] MEDS: IBUPROFEN 600 MG TABLET PO (17:35)
[2025-08-10] VITALS (8 sets, daily range): BP systolic 135–154; BP diastolic 81–91; PULSE 84–93; RESP 16–20; TEMP 36.4–36.8; O2SAT 98–100
[2025-08-10] MEDS: MAGNESIUM SULF 20GM/WATER500ML 500 ML 50 MG IV CONT (00:50)
[2025-08-10] MEDS: ACETAMINOPHEN 325 MG TABLET 650 MG PO ×3 (05:00→17:31)
[2025-08-10] MEDS: IBUPROFEN 600 MG TABLET PO ×2 (05:00→20:17)
--- NOTE | 2025-08-10 05:35 | PC.NURSE ---
patient's IV infiltrated while magnesium was infusing. Dr. Qiu called, and stated it is okay to discontinue the magnesium. patient is also refusing to have a new IV placed.
[2025-08-10 05:39] LABS: Hematocrit 25.9 % (37.0-47.0); Hemoglobin 8.7 g/dL (12.0-15.0)
[2025-08-10] MEDS: LABETALOL HCL 100 MG TABLET 200 MG PO ×2 (08:47→20:17)
[2025-08-10] MEDS: DOCUSATE SODIUM 100 MG CAPSULE PO ×2 (08:47→15:10)
--- NOTE | 2025-08-10 09:00 | PC.NURSE ---
Met with patient regarding needs. She has started supplementing with formula and is using her personal breast pump. We reviewed frequency of feedings as it relates to formula versus . Patient is advised to attempt at breast first each feeding and if baby is unable to latch and feed well, she should pump for 15 minutes. Patient states that she is planning to put baby at breast each feeding and supplement with formula as needed. Primary RN updated.
--- NOTE | 2025-08-10 09:15 | PC.NURSE ---
Patient requested assistance with latching baby. Baby was sleepy and we tried to stimulate her to wake. We discussed how formula will digest slower than breast milk and that baby may be harder to wake after taking a larger volume of formula. We were unable to wake baby and elicit any rooting or gaping feeding cues. Discussed with mother that she has the option to move on to pumping and supplementing at this time or that she can wait another half hour and try at breast again. Mother is uncertain what she would like to do at this time and will call out for further assistance as needed. The associate professor of psychology feels that if baby is passing her glucometer checks while being supplemented with formula, she will need to continue being supplemented with formula. Reviewed that the doctor will come speak to parents and review her recommended plan of care. Primary RN updated.
--- NOTE | 2025-08-10 14:33 | WPDANLDPN2 ---
Anes-Prog Note L&D Date/Time: 08/10/25 14:33 Comfortable throughout: labor and delivery Neuraxial method: epidural Epidural/Spinal procedure site: clean & non-tender Neuro status: Neuro function grossly intact. Cardiovascular status: normal Respiratory status: normal Airway patency: baseline Mental status: baseline Post-Op hydration status: normal Vital Signs: Last Vital Signs Temp 36.8 C 08/10/25 12:26 Pulse 86 08/10/25 12:26 Resp 20 08/10/25 12:26 BP 144/85 H 08/10/25 12:26 Pulse Ox 98 08/10/25 12:26 O2 Del Method Room Air 08/09/25 19:35 Pain score (VAS): 1 I/O: Intake & Output 08/09/25 08/10/25 08/10/25 23:59 07:59 15:59 Intake Total 1300 2137.5 Output Total 2600 4500 950 Balance -1300 -2362.5 -950 Post-procedural complaints: none Patient feedback: Patient satisfied with anesthetic care.
--- NOTE | 2025-08-10 17:10 | PM.OBDSVD ---
DS: Admitting Diagnosis Discharge Date 08/11/2025 Admitting Diagnosis DS: Discharge Diagnosis Discharge Diagnosis (1) , delivered: Code(s): O80 - Encounter for full-term uncomplicated delivery Status: Acute OB - DS: Summary OB Procedures : None OB Procedures Intrapartum: Spontaneous Vag Delivery OB Procedures: : None Peripartum Data Laceration Description: Perineal - 1st Degree Episiotomy description: None Time Spent with Patient Time attestation: Total time spent providing and/or coordinating discharge services: DS: Data Data Completed and Pending Pending studies at discharge: Pending at discharge 08/09/25 10:06 Surgical [PTH] Routine Labs on day of discharge: Labs from last 24 hours 08/10/25 05:02 Hgb 8.7 L Hct 25.9 L Discharge Plan Discharge Attending physician on discharge: Mike Owen Discharging Clinician: Mike Owen Patient Disposition: Home Activity: as tolerated and pelvic rest Diet: as tolerated Discharge Instructions: 1. Keep appointment at hospital 2. Return to office 1 week for blood pressure check 3. Return sooner for headache, visual changes, increased pain discomfort or bleeding Patient Instructions: Antibiotic Form Patient Language: Jamaican Stand Alone Forms: General Discharge Information Follow-up/Referrals: Mike Owen MD [Physician, ITEM PROCESSOR] - 1 Week Discharge Medications: New ibuprofen 600 mg Tablet 600 mg PO Q6H PRN (Reason: Cramping) Qty: 30 0RF labetalol 100 mg Tablet 200 mg PO Q12HR Qty: 60 0RF Continued levocetirizine [Xyzal] 2.5 mg/5 mL solution 2.5 mg PO DAILY Classic 28 mg iron- 800 mcg tablet 1 tablet PO DAILY [id number]-ettdmwel [Excedrin Extra Strength] 250-250-65 mg tablet 1 tablet PO DAILY PRN (Reason: headache) acetaminophen [Acetaminophen Extra Strength] 500 mg tablet 1,000 mg PO .q8hr PRN (Reason: headache) Patient Comments: Pt only takes 1-2 times per day Date of admission: 08/08/25 10:29 Primary Care Provider: Afua Eldridge Admitting Provider: Mike Owen Attending physician on admission: Mike Owen Condition: Stable
[2025-08-11] MEDS: ACETAMINOPHEN 325 MG TABLET 650 MG PO (00:22)
[2025-08-11 05:00] VITALS: BP 149/96
[2025-08-11 07:50] VITALS: BP 158/97; PULSE 102; RESP 18; TEMP 36.6; O2SAT 100
[2025-08-11] MEDS: TETANUS,DIPHTHERIA,AC PERTUSSIS ADULT (0.5 ML) BOOSTRIX IM (09:39)
[2025-08-11] MEDS: MEASLES,MUMPS,RUBELLA VACCINE 0.5 ML VIAL SUB-Q (09:41)
[2025-08-11 09:42] VITALS: PULSE 102
[2025-08-11] MEDS: LABETALOL HCL 100 MG TABLET 200 MG PO (09:42)
[2025-08-11] MEDS: DOCUSATE SODIUM 100 MG CAPSULE PO (09:42)
--- NOTE | 2025-08-11 10:00 | PC.NURSE ---
Consulted with mother concerning needs and she shared her ability to independently latch infant optimally without pain, she is also using her own breast pump, she was able to pump 30mls in one session this morning. Per mother she is planning on putting infant to breast and supplementing after feeds with either pumped breast milk and/or formula. Mother is feeding appropriately for growth of and understands stimulating to eat if needed. Infant has had appropriate feedings in the last 24 hours meets the outcomes for weight, output, blood sugar and jaundice at this time. Reinforced understanding of milk production, transition of milk, signs of adequate intake, transition of stool, prevention/relief of engorgement, plugged ducts, mastitis, responsive watching for feeding cues, the different methods of stimulating infant to breastfeed 1-3 hours after the start of the last feeding, community resources, and when to call a provider using the resource of the feeding sheet along with the mom and baby guide. Mother voiced understanding of the information shared, is confident to continue effectively breastfeed and bottle feed her infant at home, when to call for assistance, denies any additional assistance or education at this time. Reported to the Primary RN.
[2025-08-12 08:51] VITALS: BP 142/86; PULSE 83; RESP 18; TEMP 36.7; O2SAT 97
== END 2025-08-11 13:20 | disposition home or self-care (01) | DRG 806 ==
LOC: ANHLDR 08-09 08:18 → ANHOB2 08-09 14:44
PROVIDERS: Admitting Provider Obstetrics & Gynecology; PCP Nurse Practitioner Family; Visit Provider Obstetrics & Gynecology
DX: O14.14 Severe pre-eclampsia complicating childbirth (principal); Z68.41 Body mass index [BMI] 40.0-44.9, adult; Z37.0 Single live birth; Z3A.38 38 weeks gestation of pregnancy; O70.0 First degree perineal laceration during delivery; E66.813 Obesity, class 3
CPT/HCPCS: 36415; 59025; 80053; 84550; 85014; 85018; 85025; 86593; 86850; 86900; 86901; 88307; 90710; 90715; J0690; A9270; J2590; J2795; J3475; J7120

== ENCOUNTER 2025-08-14 06:12 | Emergency (ER) | payer OTHER, SELFPAY ==
[2025-08-14] VITALS (35 sets, daily range): BP systolic 116–182; BP diastolic 63–118; PULSE 77–107; RESP 16–27; TEMP 36.2; O2SAT 94–100
--- NOTE | ~2025-08-14 | CT_ITS ---
EXAMINATION: CTA chest PE protocol, 08/14/2025 7:40 CDT HISTORY: shortness of breath x4 days COMPARISON: No comparisons available. TECHNIQUE: CTA examination is obtained with contrast CTA examination technique is performed with arterial phase of contrast-enhancement. 3-D reconstruction with thin MIP axial and MPR coronal imaging is provided Isovue 300, 92cc injected IV. One or more of the following dose reduction techniques were used: automated exposure control, adjustment of the mA and/or kV according to patient size, use of iterative reconstruction technique. FINDINGS: No significant coronary calcification is present ([id number]) LUNGS: [id number]-wg-wntrsaxw simple appearing bilateral pleural effusions. Contrast bolus limited, there is no pulmonary embolism identified. No tracheomalacia. No bronchiectasis. Minimal emphysematous changes. Small basilar infiltrates. Moderate pulmonary venous congestion. There are scattered subclavian micronodules which may be infectious. HEART AND PERICARDIUM: Mild cardiomegaly. Trace pericardial effusion. AORTA: Normal caliber aorta.. PULMONARY ARTERIES: No pulmonary embolism ADENOPATHY/MEDIASTINUM: None. LIMITED VIEWS OF THE ABDOMEN: Thickening of the esophagus may represent mild esophagitis. OSSEOUS STRUCTURES: No sclerotic or lytic lesions. OVERLYING SOFT TISSUES: Unremarkable. THYROID: The thyroid is unremarkable. IMPRESSION: 1. No pulmonary embolism identified. CHF with probable superimposed bronchopneumonia. Follow-up recommended to assess resolution Reviewed, dictated and finalized at location A. IMPRESSION: 1. No pulmonary embolism identified. CHF with probable superimposed bronchopneu monia. Follow-up recommended to assess resolution
--- NOTE | ~2025-08-14 | XR_ITS ---
EXAMINATION: XR chest 1V portable COMPARISON: No comparisons available. HISTORY: SHORTNESS OF BREATH FINDINGS: There are diffuse bilateral large infiltrate superimposed on chronic lung disease. No pneumothorax. Heart is normal size. Mediastinal and hilar contours are within normal limits. Bony thorax no acute abnormality. Miscellaneous: None Impression: Bilateral pneumonia Reviewed, dictated and finalized at location A. Impression: Bilateral pneumonia
--- NOTE | 2025-08-14 06:37 | ECG_ITS ---
Test Date: 2025-08-14 06:45:33 Measurements Intervals Elim Rate: 82 P: 23 LA: 152 QRS: 14 QRSD: 80 T: 36 QT: 370 QTc: 435 Interpretive Statements SINUS RHYTHM NORMAL ECG No previous ECG available for comparison Electronically Signed On 08-15-2025 07:52:28 CDT by Elkin Corley M.D.
--- NOTE | 2025-08-14 06:39 | ED.SOB ---
HPI - SOB/Dyspnea General Chief Complaint: Shortness of Breath/Dyspnea Stated Complaint: 5 DAYS POST DELIVERY, ECLAMPSIA Time Seen by Provider: 08/14/25 06:28 Source: patient Mode of arrival: ambulatory Limitations: no limitations History of Present Illness HPI Narrative: Patient is a 29-year-old female with day 5 and shortness of breath/wind less and tight bandlike feeling/sensation around the epigastric area and around the sides to the back. She had preeclampsia. She has edema. She was sent to the ER through the birthing center. MD elicited complaint: shortness of breath Pertinent past history: other (Preeclampsia) Onset (ago): day(s) (2) Context: other (Patient having shortness of breath and band like sensation around the epigastric area to the back since 2 days and birthed 5 days ago) Timing: constant (Shortness of breath) and intermittent (Bandlike sensation) Severity: mild Exacerbating factors: talking Relieving factors: upright position (Causing difficulty of sleep) Known history of: other (Preeclampsia) Associated symptoms: abdominal pain and lightheadedness Treatment prior to arrival: none Related Data Home oxygen amount: none Home Medications ?Medication ?Instructions ?Recorded ?Confirmed ?Last Taken ?Type vits no.126-ferrous fum 1 tablet PO DAILY 01/03/25 08/08/25 08/08/25 08:00 History 28 mg iron-folic acid 800 mcg tablet (Classic ) levocetirizine 2.5 mg/5 mL oral 2.5 mg PO DAILY 07/15/25 08/08/25 08/07/25 08:00 History solution (Xyzal) acetaminophen 500 mg tablet 1,000 mg PO .q8hr PRN headache 08/06/25 08/08/25 08/07/25 20:00 History (Acetaminophen Extra Strength) vgjohrl-azpkhmxhfigcy-ifmyonmb 250 1 tablet PO DAILY PRN headache 08/06/25 08/08/25 08/08/25 08:00 History mg-250 mg-65 mg tablet (Excedrin Extra Strength) Allergies Allergy/AdvReac Type Severity Reaction Status Date / Time Penicillins Allergy Intermediate rash Verified 08/14/25 06:23 Review of Systems Review of Systems: All systems reviewed & are unremarkable except as noted in HPI and below Constitutional: Constitutional: Reports no additional constitutional complaints Eyes: Eyes: Reports no additional eye complaints ENT: Reports system reviewed and no additional complaints, except as documented Cardiovascular: Cardiovascular: Reports no additional cardiovascular complaints Respiratory: Respiratory: Reports no additional respiratory complaints Gastrointestinal: Gastrointestinal: Reports no additional gastrointestinal complaints Genitourinary: Genitourinary: Reports no additional female genitourinary complaints Musculoskeletal: Musculoskeletal: Reports no additional musculoskeletal complaints Integumentary/Breasts: Skin/Breast: Reports system reviewed and no additional complaints, except as docu Neurologic: Reports system reviewed and no additional complaints, except as documented Psychiatric: Psychiatric: Reports no additional psychiatric complaints Endocrine: Endocrine: Reports no additional endocrine complaints Hematologic/Lymphatic: Hematologic/Lymphatic: Reports no additional hematologic/lymphatic complaints Allergic/Immunologic: Allergic/Immunologic: Reports no additional allergic/immunologic complaints PMFSH Past Medical History Medical History Pseudotumor cerebri syndrome TMJ (dislocation of temporomandibular joint) Concussion Family History Family History Mother Hypertension Grandparent Hyperthyroidism Glaucoma Social History Social History Smoking status: Former smoker Tobacco type: e-cigarettes/vaping Second hand tobacco smoke exposure: No Alcohol intake: never Substance use: never Substance use type: marijuana Other substance usage details: 2 x weeek Do You Feel Safe in your Home?: Yes Lack of Transportation: No Lack of Food: Never True Current Housing: I Have Housing Concerned About Future Housing: No Difficulty Paying Gas/Electric Bills: No Difficulty Paying for Meds: No Currently Unemployed: No Education: Bachelor's Degree Difficulty w/ Childcare or Family Care: No Living arrangements: with family Additional living arrangements comments: Occupation/Education: occupation 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 Gender identity (if verbalized by the patient): Female Sexual Orientation (if Verbalized by the Patient): Straight or Heterosexual Spiritual care concerns: No Exam Const: General: healthy appearing Nutritional Appearance: well nourished Orientation/consciousness: patient oriented x3 HENMT: Head: normal to inspection Ears: external ears normal Face/Nose/Sinus: Normal external nose present Eyes: Conjunctivae: conjunctivae normal Pupils: Equal, round and reactive pupils present EOM: EOMs intact bilaterally Neck: Neck: normal visual inspection Chest: Chest palpation & inspection: normal inspection of the chest Resp: Effort & Inspection: normal respiratory effort and not labored Auscultation: clear to auscultation bilaterally and no crackles Cardio: Rate: regular rate Rhythm: regular rhythm Heart sounds: no murmurs GI: Inspection: non-distended GI Palp: Yes Soft to palpation, No Tenderness to palpation present (GI), No Guarding due to palpation present (GI), No Rigid due to palpation, No Hernia present, No Palpable mass present and No Rebound tenderness present Auscultation: normal bowel sounds : General: Yes bladder normal to palpation Back/Spine/Pelvis: Back: no CVA tenderness Skin: General skin exam: normal color Rashes: no rashes Wounds: no wounds Neuro: General: patient oriented x3, moves all extremities and no meningeal signs Cranial nerves: Yes Nystagmus not present Speech: normal speech Gait exam (Neuro): Normal gait present Extrem: General: normal to inspection and no clubbing, cyanosis or edema Psych: Mental Status: mental status grossly normal Affect: normal affect Attitude: cooperative Course Vital Signs Vital signs: Vital Signs Temperature 36.2 C L 08/14/25 06:15 Pulse Rate 83 08/14/25 06:15 Respiratory Rate 16 08/14/25 06:15 Blood Pressure 182/101 H 08/14/25 06:15 Pulse Oximetry 96 08/14/25 06:15 Oxygen Delivery Room Air 08/14/25 06:15 Temperature 36.2 C L 08/14/25 06:15 Pulse Rate 83 08/14/25 06:15 Respiratory Rate 16 08/14/25 06:15 Blood Pressure 182/101 H 08/14/25 06:15 Pulse Oximetry 96 08/14/25 06:15 Oxygen Delivery Room Air 08/14/25 06:15 MDM - SOB/Dyspnea MDM Narrative Medical decision making narrative: Patient is a 29-year-old female day 5 here with shortness of breath and a bandlike sensation around her epigastric area that radiates to the back. Will do a workup for both problems at this time. Treat pain as needed. Monitor and treat blood pressure as needed. ECG Data EKG #1: Attestation: I personally reviewed and interpreted this ECG as follows: ECG completion date: 08/14/25 ECG completion time: 06:48 EKG Interpretation: normal rate, sinus rhythm, no ectopy, no ST changes, normal QRS, normal QT, NL axis and no acute changes Discharge Plan Discharge Clinical Impression: , delivered Patient Disposition: Home Condition: Stable Patient Language: Icelandic Prescriptions: No Action levocetirizine [Xyzal] 2.5 mg/5 mL solution 2.5 mg PO DAILY Classic 28 mg iron- 800 mcg tablet 1 tablet PO DAILY fqejnvu-kotvnshbxvsvs-lotcjxzk [Excedrin Extra Strength] 250-250-65 mg tablet 1 tablet PO DAILY PRN (Reason: headache) acetaminophen [Acetaminophen Extra Strength] 500 mg tablet 1,000 mg PO .q8hr PRN (Reason: headache) Patient Comments: Pt only takes 1-2 times per day ibuprofen 600 mg Tablet 600 mg PO Q6H PRN (Reason: Cramping) Qty: 30 0RF labetalol 100 mg tablet 200 mg PO TID Qty: 60 0RF Follow-up/Referrals: Afua Eldridge NP [Primary Care Provider, Family Practice]
[2025-08-14 06:56] LABS: Hematocrit 25.5 % (35.0-49.0); Hemoglobin 8.2 g/dL (12.0-15.0); Immature Granulocyte Percent A 0.5 % (0.0-0.0); Lymphocytes Absolute Auto 1.20 K/mm3 (1.10-4.50); Mean Corpuscular HGB Conc 32.2 g/dL (32-36); Mean Corpuscular Hemoglobin 28.7 pg (27.0-31.0); Mean Corpuscular Volume 89.2 fL (78.0-102.0); Nucleated Red Blood Cells Absolute Auto 0.00 K/mm3 (0.00-0.00); Nucleated Red Blood Cells Perc 0.0 % (0-0.0); Platelet Count Result 277 K/mm3 (150-420); Red Blood Count 2.86 M/mm3 (4.20-5.40); White Blood Count 8.0 K/mm3 (4.8-10.8)
[2025-08-14 07:02] LABS: Add Urine Microscopic? YES; Appearance Urine Clear (Clear); Glucose Urine UA Negative (Negative); Leukocyte Esterase Ur Trace LEU/UL (Negative); Nitrate Urine Negative (Negative); Specific Grav Ur <= 1.005 (1.010-1.020)
--- OUTSIDE RECORDS SUMMARY | 2025-08-14 07:02 | XMS_ITS | Clinical Summary ---
[facility] Organization [facility] Address [address] [place] [address] Care Team Providers Care Oil Heaterman Name Role Phone Lobito Mcelroy Primary Care [...] Description 07/29/2025 9:45 AM CDT Office Visit [facility] Medicine Ophthalmology [address] [phone] Trenton Tiwari MD Unspecified disorder of visual pathways (Primary Dx); Papilledema; Idiopathic intracranial hypertension 07/29/2025 9:20 AM CDT Imaging Exam [facility] Medicine Ophthalmology [address] [place] [phone] Unspecified disorder of visual pathways 05/20/2025 9:15 AM CDT Office Visit [facility] Medicine Ophthalmology [address] [place] [phone] Trenton Tiwari MD Papilledema (Primary Dx); Idiopathic intracranial hypertension 05/20/2025 8:50 AM CDT Imaging Exam [facility] Medicine Ophthalmology [address] [place] [phone] Papilledema 05/20/2025 8:30 AM CDT Imaging Exam [facility] Ophthalmology [address] [place] [phone] Papilledema 05/16/2025 Telephone [facility] Ophthalmology [address] [place] [phone] Trenton Tiwari MD from Last 3 Months [...] on file Legal Sex Female 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 Gender Identity Female 08/11/2023 11:20 AM CDT Sexual Orientation Not on file Obstetrics History Last Filed Vital Signs Vital Sign Reading Time Taken Comments Blood Pressure 136/77 02/04/2020 12:00 PM CIVIL ENGINEERING DRAFTER Pulse 72 02/04/2020 12:00 PM CIVIL ENGINEERING DRAFTER Temperature 36.6 C (97.8 F) 02/04/2020 12:00 PM CIVIL ENGINEERING DRAFTER Respiratory Rate 16 02/04/2020 12:00 PM CIVIL ENGINEERING DRAFTER Oxygen Saturation 99% 02/04/2020 12:00 PM CIVIL ENGINEERING DRAFTER Inhaled Oxygen Concentration - - Weight 118.8 kg (262 lb) 10/27/2023 2:43 PM CIVIL ENGINEERING DRAFTER Height 172.7 cm (5' 8) 10/27/2023 2:43 PM CIVIL ENGINEERING DRAFTER Body Mass Index 39.84 10/27/2023 2:43 PM CIVIL ENGINEERING DRAFTER Plan of Treatment Health Maintenance Due Date [...] normal visual field OU Trenton Tiwari MD [facility] VISUAL FIELD F inal Result * OCT, [...] al Result from Last 3 Months Insurance [facility]PPO Address: [address] [address] [place] [address] [facility] Advance Directives For more information, please contact: [phone] * Full Code (Latest Code Status on File) Date Activated Date Inactivated Comments 02/04/2020 11:17 AM 02/04/2020 7:26 PM Care Teams Oil Heaterman Relationship Specialty Start Date End Date Lobito Mcelroy DO [address] [place] [address] PCP - General Family Medicine 11/29/24
--- OUTSIDE RECORDS SUMMARY | 2025-08-14 07:02 | XMS_ITS | Encounter Summary ---
Author Organization [facility] Address [address] [place] [address] Phone Care Team Providers Care Food Demonstrator Name Role Phone Kaela Ernst DO Primary Care Provider [phone] Lobito Mcelroy DO Primary Care Provider Reason for Referral * Diagnostic Imaging (Routine) - Closed Specialty Diagnoses / Procedures Referred By Contac t Referred To Contact Diagnoses Idiopathic intracranial hypertension Papilledema Pseudotumor cerebri Procedures OCT, Retina - OU - Both Eyes Trenton Tiwari MD [address] [place] [id number] Phone: tel: fax: [facility] (All Locations) Referral ID Status Reason Start Date Expiration Date Visits Re quested Visits Authorized [id number] Closed 02/03/2024 03/04/2025 1 1 INE APPLICATOR CEMENTER * Diagnostic Imaging (Routine) - Closed Specialty Diagnoses / Procedures Referred By Contac t Referred To Contact Diagnoses Idiopathic intracranial hypertension Papilledema Pseudotumor cerebri Procedures OCT, Optic Nerve - OU - Both Eyes Trenton Tiwari MD [address] [place] [id number] Phone: tel: fax: [facility] (All Locations) Referral ID Status Reason Start Date Expiration Date Visits Re quested Visits Authorized [id number] Closed 02/03/2024 03/04/2025 1 1 INE APPLICATOR CEMENTER * Diagnostic Imaging (Routine) - Closed Specialty Diagnoses / Procedures Referred By Preet maldonado Referred To Contact Diagnoses Idiopathic intracranial hypertension Papilledema Pseudotumor cerebri Procedures [place] Visual Field - OU - Both Eyes Trenton Tiwari MD [address] [place] [phone] Phone: tel: fax: [facility] (All Locations) Referral ID Status Reason Start Date Expiration Date Visits Re quested Visits Authorized [id number] Closed 02/03/2024 03/04/2025 1 1 INE APPLICATOR CEMENTER Encounter Details Date Type Department Care Team (Late st Contact Info) Description 02/03/2024 Orders Only [facility] Medicine Ophthalmology [address] [place] [address] Health [address] [place] [id number] Trenton Tiwari MD [address] [place] [id number] Idiopathic intracranial hypertension (Primary Dx); Papilledema; Pseudotumor cerebri Social History Tobacco Use Types Packs/Day Years Used Date Smoking Tobacco: Former Alcohol Use Standard Drinks/Week Comments Yes 0 (1 standard drink = 0.6 oz pur e alcohol) Social Comments No Sex and Gender Information Value Date Recorded Sex Assigned at Not on file Legal Sex Female 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
[2025-08-14 07:08] LABS: Alanine Aminotransferase 30 U/L (6-35); Albumin Level 3.5 g/dL (3.5-5.1); Alkaline Phosphatase 86 U/L (38-126); Anion Gap 8 mmol/L (4-12); Aspartate Amino Transferase 32 U/L (14-36); Bilirubin,Total 0.3 mg/dL (0.2-1.3); Blood Urea Nitrogen 7 mg/dL (7-17); Calcium 8.7 mg/dL (8.4-10.2); Carbon Dioxide 23 mmol/L (22-30); Chloride 110 mmol/L (98-107); Estimated CRCL calculation 125 ml/min; Estimated Glomerular Filt Rate > 60; Glucose 84 mg/dL (65-110); Lipase 34 U/L (23-300); Osmolality Calculated 289 mOsm/kg (285-295); Potassium 4.0 mmol/L (3.4-5.0); Sodium 141 mmol/L (137-145); Total Protein 6.5 g/dL (6.3-8.2)
[2025-08-14 07:11] LABS: INR 1.0; Partial Thromboplastin Time 25.2 Sec (23.9-30.70); Prothrombin Time 10.9 Seconds (9.50-12.1)
[2025-08-14 07:20] LABS: NT Pro B Type Natriuretic Pept 1190 pg/mL (19.9-100); Troponin I < 0.012 ng/mL (0.000-0.034)
[2025-08-14 08:21] LABS: HCO3 ABG 18.4 mmol/L (23-29); Oxygen Saturation ABG 94.9 % (95-97); PCO2 ABG 27.2 mmHg (35-45); PO2 ABG 85.7 mmHg (80-90)
[2025-08-14 08:22] LABS: Liters per Minute 0.0 LPM; Modified Allen's Test Pass; Site Drawn LEFT RADIAL
[2025-08-14] MEDS: LACTATED RINGERS 500 ML 999 ML IV CONT (08:24)
[2025-08-14] MEDS: ACETAMINOPHEN 325 MG TABLET 650 MG PO (11:09)
[2025-08-14] MEDS: FUROSEMIDE INJ 20 MG/2 ML VIAL IV PUSH (11:21)
== END 2025-08-14 12:33 | disposition short-term general hospital (02) ==
PROVIDERS: Emergency Medicine; Emergency Provider Internal Medicine Critical Care Medicine; PCP Nurse Practitioner Family
DX: O90.89 Other complications of the puerperium, not elsewhere classified (principal); R06.02 Shortness of breath; R10.13 Epigastric pain; M79.89 Other specified soft tissue disorders; Z87.891 Personal history of nicotine dependence
CPT/HCPCS: 36415; 36600; 71045; 71275; 80053; 81001; 82805; 83690; 83880; 84484; 85025; 85380; 85610; 85730; 93005; 96374; 96375; 99285; A9270; J1938; J7120; Q9967

== ENCOUNTER 2025-08-14 13:37 | Inpatient (IN) | payer OTHER, SELFPAY ==
[2025-08-14] VITALS (10 sets, daily range): BP systolic 144–158; BP diastolic 92–103; PULSE 77–107; RESP 14–16; TEMP 36.7–37; O2SAT 97–100; BMI 45.3
--- OUTSIDE RECORDS SUMMARY | 2025-08-14 13:09 | XMS_ITS | Clinical Summary ---
Author Organization [facility] Address [address] [place] [address] Care Team Providers Care Face And Fill Packer Name Role Phone Lobito Mcelroy Primary Care [...] Description 07/29/2025 9:45 AM CDT Office Visit [facility] Medicine Ophthalmology [address] [phone] Trenton Tiwari MD Unspecified disorder of visual pathways (Primary Dx); Papilledema; Idiopathic intracranial hypertension 07/29/2025 9:20 AM CDT Imaging Exam [facility] Medicine Ophthalmology [address] [place] [phone] Unspecified disorder of visual pathways 05/20/2025 9:15 AM CDT Office Visit [facility] Medicine Ophthalmology [address] [place] [phone] Trenton Tiwari MD Papilledema (Primary Dx); Idiopathic intracranial hypertension 05/20/2025 8:50 AM CDT Imaging Exam [facility] Medicine Ophthalmology [address] [place] [phone] Papilledema 05/20/2025 8:30 AM CDT Imaging Exam [facility] Ophthalmology [address] [place] [phone] Papilledema 05/16/2025 Telephone [facility] Ophthalmology [address] [place] [phone] Trenton Tiwari MD from Last 3 Months [...] on file Legal Sex Female 7:19 PM HYDROBLASTER Gender Identity Female 08/11/2023 11:20 AM CDT Sexual Orientation Not on file Obstetrics History Last Filed Vital Signs Vital Sign Reading Time Taken Comments Blood Pressure 136/77 02/04/2020 12:00 PM HYDROBLASTER Pulse 72 02/04/2020 12:00 PM HYDROBLASTER Temperature 36.6 C (97.8 F) 02/04/2020 12:00 PM HYDROBLASTER Respiratory Rate 16 02/04/2020 12:00 PM HYDROBLASTER Oxygen Saturation 99% 02/04/2020 12:00 PM HYDROBLASTER Inhaled Oxygen Concentration - - Weight 118.8 kg (262 lb) 10/27/2023 2:43 PM HYDROBLASTER Height 172.7 cm (5' 8) 10/27/2023 2:43 PM HYDROBLASTER Body Mass Index 39.84 10/27/2023 2:43 PM HYDROBLASTER Plan of Treatment Health Maintenance Due Date [...] normal visual field OU Trenton Tiwari MD [facility] VISUAL FIELD F inal Result * OCT, [...] al Result from Last 3 Months Insurance [facility] Advance Directives For more information, please contact: [phone] * Full Code (Latest Code Status on File) Date Activated Date Inactivated Comments 02/04/2020 11:17 AM 02/04/2020 7:26 PM Care Teams Face And Fill Packer Relationship Specialty Start Date End Date Lobito Mcelroy DO [address] [place] [address] PCP - General Family Medicine 11/29/24
--- OUTSIDE RECORDS SUMMARY | 2025-08-14 13:09 | XMS_ITS | Encounter Summary ---
Author Organization [facility] Address [address] [place] [address] Phone Care Team Providers Care Adjunct Philosophy Faculty Name Role Phone Kaela Ernst DO Primary Care Provider [phone] Lobito Mcelroy DO Primary Care Provider Reason for Referral * Diagnostic Imaging (Routine) - Closed Specialty Diagnoses / Procedures Referred By Contac t Referred To Contact Diagnoses Idiopathic intracranial hypertension Papilledema Pseudotumor cerebri Procedures OCT, Retina - OU - Both Eyes Trenton Tiwari MD [address] [place] [phone] Phone: tel: fax: [facility] (All Locations) Referral ID Status Reason Start Date Expiration Date Visits Re quested Visits Authorized [id number] Closed 02/03/2024 03/04/2025 1 1 ND CHEF * Diagnostic Imaging (Routine) - Closed Specialty Diagnoses / Procedures Referred By Contac t Referred To Contact Diagnoses Idiopathic intracranial hypertension Papilledema Pseudotumor cerebri Procedures OCT, Optic Nerve - OU - Both Eyes Trenton Tiwari MD [address] [place] [phone] Phone: tel: fax: [facility] (All Locations) Referral ID Status Reason Start Date Expiration Date Visits Re quested Visits Authorized [id number] Closed 02/03/2024 03/04/2025 1 1 ND CHEF * Diagnostic Imaging (Routine) - Closed Specialty Diagnoses / Procedures Referred By Preet maldonado Referred To Contact Diagnoses Idiopathic intracranial hypertension Papilledema Pseudotumor cerebri Procedures Pineda Visual Field - OU - Both Eyes Trenton Tiwari MD [address] [place] [phone] Phone: tel: fax: [facility] (All Locations) Referral ID Status Reason Start Date Expiration Date Visits Re quested Visits Authorized [id number] Closed 02/03/2024 03/04/2025 1 1 ND CHEF Encounter Details Date Type Department Care Team (Late st Contact Info) Description 02/03/[address] [facility] Medicine Ophthalmology [address] [place] [address] Health [address] [place] [phone] Trenton Tiwari MD [address] [place] [phone] Idiopathic intracranial hypertension (Primary Dx); Papilledema; Pseudotumor cerebri Social History Tobacco Use Types Packs/Day Years Used Date Smoking Tobacco: Former Alcohol Use Standard Drinks/Week Comments Yes 0 (1 standard drink = 0.6 oz pur e alcohol) Social Comments No Sex and Gender Information Value Date Recorded Sex Assigned at Not on file Legal Sex Female 7:19 PM SECOND CHEF Gender Identity Female 08/11/2023 11:20 AM CDT [...] hypertension documented in this encounter Care Teams Adjunct Philosophy Faculty Relationship Specialty Start Date End Date Kaela Ernst DO [address] [address] PCP - General Internal Medicine 01/24/20 11/28/24 Lobito Mcelroy DO [address] [place] [address] PCP - General Family Medicine 11/29/24 documented as of this encounter
--- NOTE | 2025-08-14 13:24 | PM.IMHP ---
H&P: HPI History of Present Illness Date/Time: 08/14/25 13:24 Chief Complaint: Shortness of Breath Narrative: 29 y/o F with PMH of recent /vaginal delivery on 08/09 complicated by preeclampsia and pseudotumor cerebri syndrome presented with shortness of breath. The patient presented to [facility] on 08/14 for further evaluation of shortness of breath. She reports she has had shortness of breath since her discharge from the hospital post delivery. She describes the shortness of breath initially as occurring with exertion such as using the stairs or walking up a ramp. It is accompanied by a tight bandlike feeling across her epigastric region/bra line that radiates around to her back bilaterally. She reports associated lower extremity edema that was additionally present when she was discharged from the hospital, has not worsened. She reports the shortness of breath however worsened last night. She noted when she rolled over onto her side she became significantly winded at rest and felt like she could not catch her breath. Shortness of breath is not accompanied by cough, fever, chills, body aches, nausea, vomiting, or diarrhea. She does not or sneezing. She has a past medical history significant for recent /vaginal delivery on 08/09 ( x5 days) that was complicated by preeclampsia. The patient is . Initial VS at presentation: He 97.1? F, HR 83, R 16, 182/101, and 96% on RA. ED workup showed: No leukocytosis, hemoglobin 8.2 (8.7 on 08/10), normal coags, elevated D-dimer, ABG showed no significant abnormalities, no significant electrolyte derangements, creatinine 0.74 and GFR >60, initial troponin negative, BNP 1190, and UA showed a low specific gravity, 3+ blood, trace leuk esterase, 6-10 RBC. CXR showed bilateral pneumonia. Chest CTA showed no PE, CHF with probable superimposed bronchopneumonia. Review of Systems Review of Systems: All systems reviewed & are unremarkable except as noted in HPI and below PMFSH Past Medical History Medical History Pseudotumor cerebri syndrome Seasonal allergies TMJ (dislocation of temporomandibular joint) Concussion Family History Family History Mother Hypertension Grandparent Hyperthyroidism Glaucoma Social History Social History Smoking status: Never smoker Tobacco type: e-cigarettes/vaping Second hand tobacco smoke exposure: No Alcohol intake: former Substance use: never Substance use type: marijuana Other substance usage details: 2 x weeek Do You Feel Safe in your Home?: Yes Lack of Transportation: No Lack of Food: Never True Current Housing: I Have Housing Concerned About Future Housing: No Difficulty Paying Gas/Electric Bills: No Difficulty Paying for Meds: No Currently Unemployed: No Education: Associate Degree Difficulty w/ Childcare or Family Care: No Living arrangements: with family Additional living arrangements comments: Occupation/Education: occupation 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 Instructions: Patient Condition acetaminophen 500 mg tablet 1,000 mg PO .q8hr PRN headache 08/06/25 08/14/25 History (Acetaminophen Extra Strength) wdqsidz-uuktbtjnnmcye-cvjliojr 250 1 tablet PO DAILY PRN headache 08/06/25 08/14/25 History mg-250 mg-65 mg tablet (Excedrin Extra Strength) ibuprofen 600 mg tablet 600 mg PO Q6H PRN Cramping #30 tabs 08/10/25 08/14/25 Rx labetalol 100 mg tablet 200 mg (2 x 100 mg) PO TID #60 tabs 08/12/25 08/14/25 Rx Allergies Allergy/AdvReac Type Severity Reaction Status Date / Time Penicillins Allergy Intermediate rash Verified 08/14/25 06:23 Exam Const: General: comfortable and no acute distress Other: , female, nontoxic appearance HENMT: Face/Nose/Sinus: Normal nares present Mouth: Yes moist mucous membranes Eyes: General: appearance normal, both eyes and all related structures Sclera: sclerae normal Pupils: Equal, round and reactive pupils present EOM: EOMs intact bilaterally Resp: Effort & Inspection: normal respiratory effort Other: Faint bibasilar crackles, no wheezing. Cardio: Rate: regular rate Rhythm: regular rhythm Other: S1-S2 present without murmur, rub, ectopy GI: Other: Abdomen soft, nondistended, nontender. Normoactive bowel sounds in all quadrants. Skin: General skin exam: normal color and no rashes or lesions noted Wounds: no wounds Neuro: Speech: normal speech Motor exam (neuro): 5/5 motor strength present throughout Sensory Exam: normal sensation Other: A&O x4 Extrem: Other: Trace edema to bilateral lower extremities, nonpitting, and symmetric. Psych: Mental Status: mental status grossly normal Affect: normal affect Other: Good insight and judgment, very pleasant Assessment and Plan Assessment and plan (1) CHF (congestive heart failure): Qualifiers: Heart failure chronicity: acute Heart failure type: unspecified Qualified Code(s): I50.9 - Heart failure, unspecified Code(s): I50.9 - Heart failure, unspecified Status: Suspected Assessment and Plan: The patient presented on 08/14 2 [facility], transferred here for Cardiology evaluation due to suspected CHF . She delivered on 08/09 vaginally which was complicated by preeclampsia. - BNP 1190 - echo ordered - given Lasix 20 mg IV at OSH. Patient currently reporting significant improvement with IV diuresis, will give additional 20 mg this evening. Will hold off on further diuresis as the patient has significantly improved with 1st dose and there is minimal peripheral edema on exam. Patient does have bibasilar crackles, however imaging also demonstrating bibasilar pneumonia. - cardiology consulted - monitor I&Os and daily weights - trend renal function (2) Pneumonia: Qualifiers: Laterality: bilateral Lung location: lower lobe of lung Pneumonia type: due to unspecified organism Qualified Code(s): J18.9 - Pneumonia, unspecified organism Code(s): J18.9 - Pneumonia, unspecified organism Status: Acute Assessment and Plan: - CXR: Bilateral pneumonia - chest CTA: No pulmonary embolism identified. CHF with probable superimposed bronchopneumonia. Follow-up recommended to assess resolution - risk/complicating factors: suspected CHF, ? - complicating factors: - started on CAP tx: Ceftriaxone and azithromycin - supportive care (3) Hypertension: Qualifiers: Hypertension type: unspecified Qualified Code(s): I10 - Essential (primary) hypertension Code(s): I10 - Essential (primary) hypertension Status: Acute Assessment and Plan: Patient has recent history of vaginal delivery on 08/09 that was complicated by preeclampsia. She was discharged home on labetalol 200 mg t.i.d., continued. She arrived to [facility] with a blood pressure of 182/101. She was treated with labetalol 10 mg at the OSH. Arrived with a blood pressure 158/94. Reviewed labs, platelet count/LFTs/renal function within normal limits. No protein noted in the urine. Check uric acid. Reaching out to OB team, consulted. - hydralazine PRN - continue labetalol 200 mg t.i.d. - check uric acid >> 6.3 - monitor Plan Reached out to generation mechanic helper team. Consulted to follow along. Diet: Regular GI Prophylaxis: N/a DVT Prophylaxis: Lovenox SQ IV fluids: LR 500 mL bolus Lines/Tubes: Peripheral IV Code Status: Full code Quality VTE Prophylaxis VTE prophylaxis: mechanical ordered Hospitalist [facility] Advance Care Plan I have confirmed that the patient's Advanced Care Plan is present, code status is documented, or surrogate decision maker is listed in patient medical record.: Yes Medication Reconciliation I have utilized all available resources to obtain, update and review the patients current medications (includes all prescriptions, OTC, herbals, cannabis, and nutritional supplements).: Yes
--- NOTE | 2025-08-14 13:30 | ADMGEN ---
This patient, Erin Caputo, was admitted to IMU Room 209-. Patient/family oriented to hospital policies and general routines including ID bracelet, bed and alarms, visiting hours, pain management, procedures, bathroom and other care routines, personal items, smoking policy, room service/diet, and visiting hours. Information on how to activate the Rapid Response Team has been discussed. Patient/Family are encouraged to report perceived risks to care and to ask questions if they do not understand what they are told or what they should do.
[2025-08-14 15:22] LABS: Uric Acid 6.3 mg/dL (2.5-7.5)
[2025-08-14] MEDS: LABETALOL HCL 100 MG TABLET 200 MG PO ×2 (15:27→21:15)
[2025-08-14] MEDS: cefTRIAXone 1 GM in SODIUM CHLORIDE 0.9% IV 50 ML 100 ML IVPB (15:28)
[2025-08-14] MEDS: AZITHROMYCIN IV 500 MG in SODIUM CHLORIDE 0.9% IV 250 ML IVPB (15:29)
[2025-08-14] MEDS: FUROSEMIDE INJ 40 MG/4 ML VIAL 20 MG IV PUSH (17:16)
[2025-08-14] MEDS: LANOLIN (LANSINOH) 7.5 GM CREAM 1 APPLIC (18:02)
[2025-08-14] MEDS: WITCH HAZEL 40 PADS 1 PAD (18:02)
[2025-08-14] MEDS: BENZOCAINE 20% AER SPR (*SP) 56 GM CAN 1 SPRAY (18:02)
[2025-08-15] VITALS (17 sets, daily range): BP systolic 149–159; BP diastolic 94–103; PULSE 78–105; RESP 14–16; TEMP 36.6–36.8; O2SAT 98–100
--- NOTE | 2025-08-15 | ECHO_ITS ---
Patient Info Name: Erin Caputo Age: 29 years : 1995 Gender: Female Ht: 67 in Wt: 289 lbs BSA: 2.56 m2 HR: 84 bpm BP: 152 / 103 mmHg Heart Rhythm: Sinus Rhythm Technical Quality: Good Exam Date: 08/15/2025 10:31 AM Patient Status: I Admit Date: 08/15/2025 Exam Type: CA echo doppler color flow Complete two-dimensional, color flow and Doppler transthoracic echocardiogram is performed. Billet Checker: Marly Coelho Attending Provider: Paresh Flores MD Summary 1. Complete two-dimensional, color flow and Doppler transthoracic echocardiogram is performed. 2. Left ventricular chamber dimension is mildly enlarged. 3. Left ventricular systolic function is low normal, estimated at 50-55. 4. There is mildly increased left ventricular wall thickness. 5. The left ventricular diastolic function is grade II diastolic dysfunction. 6. Left atrial chamber dimension is mildly enlarged. 7. There is mild to moderate mitral valve regurgitation. 8. There is mild tricuspid valve regurgitation. 9. Moderate pulmonary hypertension, estimated pulmonary arterial systolic pressure is 53 mmHg. 10. There is mild pulmonic regurgitation. 11. There is very small posterior pericardial effusion. Left Ventricle Left ventricular chamber dimension is mildly enlarged. Left ventricular systolic function is low normal, estimated at 50-55. There is mildly increased left ventricular wall thickness. The left ventricular diastolic function is grade II diastolic dysfunction. Right Ventricle Right ventricular chamber dimension is normal. Right ventricular systolic function is normal. Left Atria Left atrial chamber dimension is mildly enlarged. Right Atria Right atrial chamber dimension is normal. Atrial Septum Intact interatrial septum visualized by color flow imaging. Aortic Valve The aortic valve is trileaflet. There is no aortic valve sclerosis. There is no aortic valve stenosis. There is trace aortic valve regurgitation. Pulmonic Valve The pulmonic valve is normal. There is no pulmonic valve stenosis. There is mild pulmonic regurgitation. Mitral Valve The mitral valve has normal leaflets. There is no mitral valve stenosis. There is mild to moderate mitral valve regurgitation. Tricuspid Valve The tricuspid valve leaflets are normal. There is no significant tricuspid valve stenosis. There is mild tricuspid valve regurgitation. Moderate pulmonary hypertension, estimated pulmonary arterial systolic pressure is 53 mmHg. Pericardium/Pleural The pericardium appears normal. There is very small posterior pericardial effusion. Inferior Vena Cava Normal inferior vena cava with >50% collapse upon inspiration consistent with normal right atrial pressure, 10 mmHg. Aorta The aortic root size at the sinus of Valsalva is normal. Left Ventricular Outflow Tract Name Value Normal LVOT 2D LVOT Diameter 2.1 cm LVOT Doppler LVOT Peak Velocity 106 cm/s LVOT Peak Gradient 5 mmHg LVOT Mean Gradient 3 mmHg LVOT VTI 25 cm LVOT VTI/AV VTI Ratio 0.7 LVOT Stroke Volume 85 ml LVOT CO 17.1 l/min LVOT CI 6.7 l/min/m2 Pulmonic Valve Name Value Normal PV Doppler PV Peak Velocity 107 cm/s PV Peak Gradient 5 mmHg Mitral Valve Name Value Normal MV Diastolic Function MV E Peak Velocity 126 cm/s MV A Peak Velocity 48 cm/s MV E/A 2.6 MV Decel Time (PW) 210 ms MV Annular TDI MV E/e' (Septal) 14.9 MV E/e' (Lateral) 11.9 MV E/e' (Average) 13.4 Tricuspid Valve Name Value Normal TV Regurgitation Doppler TR Peak Velocity 326 cm/s TR Peak Gradient 37 mmHg Estimated PAP/RSVP RA Pressure 10 mmHg <=5 PA Systolic Pressure 53 mmHg <36 RV Systolic Pressure 53 mmHg <36 TV Annular TDI TV Lateral Cristel s' Velocity 16.0 cm/s >=9.5 Aorta Name Value Normal Ascending Aorta Ao Root Diameter (MM) 2.7 cm Ao Root Diam Index (MM) 1.1 cm/m2 Aortic Valve Name Value Normal AV Doppler AV Peak Velocity 167 cm/s AV Peak Gradient 11 mmHg AV Mean Gradient 7 mmHg AV VTI 36 cm AV Area (Cont Eq VTI) 2.4 cm2 >=3.0 AV Area (Cont Eq Juan Francisco) 2.2 cm2 AV DI (Juan Francisco) 0.64 AV Regurgitation 2D LVOT Area 3.4 cm2 Ventricles Name Value Normal LV Dimensions 2D/MM IVS Diastolic Thickness (2D) 1.1 cm 0.6-1.0 LVID Diastole (2D) 5.6 cm 3.8-5.2 LVIW Diastolic Thickness (2D) 1.0 cm 0.6-0.9 LVID Systole (2D) 4.1 cm 2.2-3.5 LVOT Diameter 2.1 cm LV Mass (2D Cubed) 234.51 g 67.00-162.00 LV Mass Index (2D Cubed) 92 g/m2 43-95 Relative Wall Thickness (2D) 0.37 <=0.42 LV Fractional Shortening/Ejection Fraction 2D/MM LV Fractional Shortening (2D) 26 % 27-45 LV EF (2D Teichholz) 50 % LV Diastolic Volume (4C MOD) 180 ml LV EF (4C MOD) 52 % LV Diastolic Volume (2C MOD) 200 ml LV EF (2C MOD) 53 % LV Diastolic Volume (BP MOD) 194 ml 46-106 LV Diastolic Volume Index (BP MOD) 76 ml/m2 29-61 LV Systolic Volume (BP MOD) 93 ml 14-42 LV Systolic Volume Index (BP MOD) 36 ml/m2 8-24 LV EF (BP MOD) 52 % 54-74 LV Diastolic Length (4C) 9.3 cm LV Systolic Length (4C) 7.4 cm LV Stroke Volume (4C MOD) 94 ml RV Dimensions 2D/MM RVID Diastole (2D) 4.3 cm 2.1-3.5 Atria Name Value Normal LA Dimensions LA Dimension (MM) 4.4 cm 2.7-3.8 LA Volume (4C A-L) 122 ml LA Volume (BP A-L) 109 ml RA Dimensions RA Systolic Major Orwell Length (4C) 5.8 cm 2.2-2.8 RA Area (4C) 20.2 cm2 <=18.0 Report Signatures
[2025-08-15 00:27] LABS: Influenza A QL RT-PCR Negative (Negative); Influenza B QL RT-PCR Negative (Negative); RSV RNA, RT-PCR Negative (Negative); SARS-CoV-2 RNA PCR Negative (Negative)
[2025-08-15 04:46] LABS: Hematocrit 29.7 % (37.0-47.0); Hemoglobin 9.3 g/dL (12.0-15.0); Immature Granulocyte Percent A 0.7 % (0-0.5); Lymphocytes Absolute Auto 1.50 K/mm3 (0.9-3.2); Mean Corpuscular HGB Conc 31.3 g/dl (32-36); Mean Corpuscular Hemoglobin 27.7 pg (26-34); Mean Corpuscular Volume 88.4 fl (80-100); Nucleated Red Blood Cells Absolute Auto 0.000 K/mm3 (0.0-0.012); Nucleated Red Blood Cells Perc 0.0 % (0.0-0.2); Platelet Count Result 314 k/mm3 (150-375); Red Blood Count 3.36 M/mm3 (4.2-5.4); White Blood Count 7.5 K/mm3 (4.5-10.0)
[2025-08-15 05:14] LABS: Anion Gap 8 mmol/L (4-12); Blood Urea Nitrogen 8 mg/dL (7-17); Calcium 8.4 mg/dL (8.4-10.2); Carbon Dioxide 23 mmol/L (22-30); Chloride 106 mmol/L (98-107); Estimated CRCL calculation 124 ml/min; Estimated Glomerular Filt Rate > 60; Glucose 82 mg/dL (65-110); Potassium 3.8 mmol/L (3.4-5.0); Sodium 137 mmol/L (137-145)
[2025-08-15] MEDS: LABETALOL HCL 100 MG TABLET 200 MG PO ×3 (06:34→22:07)
--- NOTE | 2025-08-15 07:55 | WPDCN ---
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 Imaging at [facility] showed pulmonary edema with bilateral pleural effusions Imaging was negative for PE Patient is asymptomatic after 3 doses of Lasix Recommended continued fluid restriction and Lasix p.r.n. Patient has echocardiogram scheduled for this morning cardiology consult. Will defer to Cardiology recommendations Would recommend beta blockers for any rate control Would recommend Lovenox if any signs of atrial fibrillation or ejection fraction below 35% due to hypercoagulable state Appreciate consultation. Will continue to follow peripherally HPI Data of Consult Date/Time: 08/15/25 07:55 Requesting Physician: Paresh Flores MD Primary Care Provider: Afua Eldridge NP Consult Narrative Narrative: Eirn Caputo is a 29 year old female Who is admitted with complaint of shortness of breath. Patient is from vaginal delivery on 08/09/2025. Medical history is complicated by pseudotumor cerebri. Patient initially presented to [facility] with complaint of shortness of breath. Workup was negative for a PE. Imaging showed pulmonary edema. Patient was then transferred to [facility]. Patient states symptoms have improved greatly after 3 doses of Lasix. Patient was sitting up comfortably in a chair eating breakfast this morning. Review of Systems Review of Systems: All systems reviewed & are unremarkable except as noted in HPI and below PMFSH Past Medical History Medical History Pseudotumor cerebri syndrome Seasonal allergies TMJ (dislocation of temporomandibular joint) Concussion Family History Family History Mother Hypertension Grandparent Hyperthyroidism Glaucoma Social History Social History Smoking status: Never smoker Tobacco type: e-cigarettes/vaping Second hand tobacco smoke exposure: No Alcohol intake: former Substance use: never Substance use type: marijuana Other substance usage details: 2 x weeek Do You Feel Safe in your Home?: Yes Lack of Transportation: No Lack of Food: Never True Current Housing: I Have Housing Concerned About Future Housing: No Difficulty Paying Gas/Electric Bills: No Difficulty Paying for Meds: No Currently Unemployed: No Education: Associate Degree Difficulty w/ Childcare or Family Care: No Living arrangements: with family Additional living arrangements comments: Occupation/Education: occupation 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 Instructions: Patient Condition acetaminophen 500 mg tablet 1,000 mg PO .q8hr PRN headache 08/06/25 08/14/25 History (Acetaminophen Extra Strength) [id number]-[id number] 250 1 tablet PO DAILY PRN headache 08/06/25 08/14/25 History mg-250 mg-65 mg tablet (Excedrin Extra Strength) ibuprofen 600 mg tablet 600 mg PO Q6H PRN Cramping #30 tabs 08/10/25 08/14/25 Rx labetalol 100 mg tablet 200 mg (2 x 100 mg) PO TID #60 tabs 08/12/25 08/14/25 Rx Allergies Allergy/AdvReac Type Severity Reaction Status Date / Time Penicillins Allergy Intermediate rash Verified 08/14/25 06:23 Vital Signs Vital Signs - 24 hr 08/14/25 13:34 08/14/25 14:00 08/14/25 15:27 Temperature 98.6 F Pulse Rate 87 92 96 Respiratory Rate 16 Blood Pressure 158/94 H Pulse Oximetry 99 Oxygen Delivery 08/14/25 15:41 08/14/25 16:00 08/14/25 16:00 Temperature 98.1 F Pulse Rate 101 H 93 Respiratory Rate 16 Blood Pressure 144/98 H Pulse Oximetry 97 Oxygen Delivery Room Air 08/14/25 18:00 08/14/25 20:00 08/14/25 20:00 Temperature 98.4 F Pulse Rate 107 H 86 Respiratory Rate 14 Blood Pressure 155/103 H Pulse Oximetry 100 Oxygen Delivery Room Air 08/14/25 20:00 08/14/25 21:15 08/14/25 22:00 Temperature Pulse Rate 77 89 82 Respiratory Rate Blood Pressure Pulse Oximetry Oxygen Delivery 08/14/25 23:51 08/14/25 23:54 08/15/25 00:00 Temperature 98.1 F Pulse Rate 93 84 Respiratory Rate 14 Blood Pressure 148/92 H Pulse Oximetry 97 Oxygen Delivery Room Air 08/15/25 02:00 08/15/25 04:00 08/15/25 04:00 Temperature Pulse Rate 87 81 Respiratory Rate Blood Pressure Pulse Oximetry Oxygen Delivery Room Air 08/15/25 04:00 08/15/25 06:00 08/15/25 06:34 Temperature 98.0 F Pulse Rate 87 86 105 H Respiratory Rate 14 Blood Pressure 152/103 H Pulse Oximetry 100 Oxygen Delivery 08/15/25 07:50 Temperature 98.0 F Pulse Rate 80 Respiratory Rate 16 Blood Pressure 159/99 H Pulse Oximetry 99 Oxygen Delivery Exam Const: General: cooperative, comfortable and no acute distress Resp: Effort & Inspection: normal respiratory effort and able to speak in complete sentences Cardio: Rate: regular rate GI: Inspection: normal to inspection GI Palp: No abdominal tenderness and Yes Soft to palpation Psych: Appearance: grossly normal Mental Status: mental status grossly normal Results Labs 08/15/25 04:23 08/15/25 04:23 Labs: Short CBC 08/15/25 Range/Units 04:23 WBC 7.5 (4.5-10.0) K/mm3 Hgb 9.3 L (12.0-15.0) g/dL Hct 29.7 L (37.0-47.0) % Plt Count 314 (150-375) k/mm3 BMP 08/15/25 04:23 Sodium 137 Potassium 3.8 Chloride 106 Carbon Dioxide 23 BUN 8 Creatinine 0.84 Glucose 82 Calcium 8.4
[2025-08-15] MEDS: ENOXAPARIN 40 MG/0.4 ML SYRINGE SUB-Q (08:38)
[2025-08-15] MEDS: MULTIVIT/MIN/PREN/FOL AC/IRON TABLET 1 TAB PO (08:38)
--- NOTE | 2025-08-15 09:04 | P.PNIM_ITS ---
Progress Note: A&P Assessment and Plan (1) CHF (congestive heart failure): Qualifiers: Heart failure chronicity: acute Heart failure type: unspecified Qualified Code(s): I50.9 - Heart failure, unspecified Code(s): I50.9 - Heart failure, unspecified Status: Suspected Assessment and Plan: The patient presented on 08/14 2 [facility], transferred here for Cardiology evaluation due to suspected CHF . She delivered on 08/09 vaginally which was complicated by preeclampsia. * BNP 1190 * echo ordered * given Lasix 20 mg IV at OSH. Patient currently reporting significant improvement with IV diuresis, will give additional 20 mg this evening. Will hold off on further diuresis as the patient has significantly improved with 1st dose and there is minimal peripheral edema on exam. Patient does have bibasilar crackles, however imaging also demonstrating bibasilar pneumonia. 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 CHF with probable superimposed bronchopneumonia. Follow-up recommended to assess resolution * risk/complicating factors: suspected CHF, ? * started on CAP tx: Ceftriaxone and azithromycin * supportive care * Switch to PO upon/near discharge (4) Hypertension: Qualifiers: Hypertension type: unspecified Qualified Code(s): I10 - Essential (primary) hypertension Code(s): I10 - Essential (primary) hypertension Status: Acute Assessment and Plan: Patient has recent history of vaginal delivery on 08/09 that was complicated by preeclampsia. She was discharged home on labetalol 200 mg t.i.d., continued. She arrived to [place] ER with a blood pressure of 182/101. She was treated with labetalol 10 mg at the OSH. Arrived with a blood pressure 158/94. Reviewed labs, platelet count/LFTs/renal function within normal limits. No protein noted in the urine. Check uric acid. * hydralazine PRN * continue labetalol 200 mg t.i.d. * check uric acid >> 6.3 * monitor Plan Diet: Regular GI Prophylaxis: N/a DVT Prophylaxis: Lovenox SQ IV fluids: LR 500 mL bolus Lines/Tubes: Peripheral IV Code Status: Full code Subjective Date/time seen: 08/15/25 09:04 Interval history: 29 y/o F with PMH of recent /vaginal delivery on 08/09 complicated by preeclampsia and pseudotumor cerebri syndrome presented with shortness of breath. 08/15/2025 Patient sitting in bed at time of exam, anxious appearing. Blood work, vitals unremarkable. Denies any chest pain, shortness of breath, n/v, or abdominal pain at this time. Seen by OBGYN and Cardiology this A.M.. Pending TTE to eval for peripartum cardiomyopathy, will guide medical therapy based on these results. Continue IV Lasix 40mg BID, labetalol. Review of Systems Review of Systems: All systems reviewed & are unremarkable except as noted in HPI and below Exam Const: General: comfortable and no acute distress Other: , female, nontoxic appearance HENMT: Face/Nose/Sinus: Normal nares present Mouth: Yes moist mucous membranes Eyes: General: appearance normal, both eyes and all related structures Sclera: sclerae normal Pupils: Equal, round and reactive pupils present EOM: EOMs intact bilaterally Resp: Effort & Inspection: normal respiratory effort Other: Faint bibasilar crackles, no wheezing. Cardio: Rate: regular rate Rhythm: regular rhythm Other: S1-S2 present without murmur, rub, ectopy GI: Other: Abdomen soft, nondistended, nontender. Normoactive bowel sounds in all quadrant s. Skin: General skin exam: normal color and no rashes or lesions noted Wounds: no wounds Neuro: Cranial nerves: Yes Equal, round and reactive pupils present Speech: normal speech Motor exam (neuro): 5/5 motor strength present throughout Sensory Exam: normal sensation Other: A&O x4 Extrem: Other: Trace edema to bilateral lower extremities, nonpitting, and symmetric. Psych: Mental Status: mental status grossly normal Affect: normal affect Other: Good insight and judgment, very pleasant Objective Data Vital Signs Vital Signs: Vital Signs - 24 hr 08/14/25 13:34 08/14/25 14:00 08/14/25 15:27 Temperature 98.6 F Pulse Rate 87 92 96 Respiratory Rate 16 Blood Pressure 158/94 H Pulse Oximetry 99 Oxygen Delivery 08/14/25 15:41 08/14/25 16:00 08/14/25 16:00 Temperature 98.1 F Pulse Rate 101 H 93 Respiratory Rate 16 Blood Pressure 144/98 H Pulse Oximetry 97 Oxygen Delivery Room Air 08/14/25 18:00 08/14/25 20:00 08/14/25 20:00 Temperature 98.4 F Pulse Rate 107 H 86 Respiratory Rate 14 Blood Pressure 155/103 H Pulse Oximetry 100 Oxygen Delivery Room Air 08/14/25 20:00 08/14/25 21:15 08/14/25 22:00 Temperature Pulse Rate 77 89 82 Respiratory Rate Blood Pressure Pulse Oximetry Oxygen Delivery 08/14/25 23:51 08/14/25 23:54 08/15/25 00:00 Temperature 98.1 F Pulse Rate 93 84 Respiratory Rate 14 Blood Pressure 148/92 H Pulse Oximetry 97 Oxygen Delivery Room Air 08/15/25 02:00 08/15/25 04:00 08/15/25 04:00 Temperature Pulse Rate 87 81 Respiratory Rate Blood Pressure Pulse Oximetry Oxygen Delivery Room Air 08/15/25 04:00 08/15/25 06:00 08/15/25 06:34 Temperature 98.0 F Pulse Rate 87 86 105 H Respiratory Rate 14 Blood Pressure 152/103 H Pulse Oximetry 100 Oxygen Delivery 08/15/25 07:50 08/15/25 08:00 Temperature 98.0 F Pulse Rate 80 80 Respiratory Rate 16 16 Blood Pressure 159/99 H Pulse Oximetry 99 99 Oxygen Delivery Room Air Intake/Output Intake/Output: Intake & Output 08/12/25 08/13/25 08/14/25 08/15/25 23:59 23:59 23:59 23:59 Intake Total 120 250 Output Total 0 1700 Balance 120 -1450 Meds/Results Medications: Active Medications Generic Name Dose Route Start Last Admin Trade Name Freq PRN Reason Stop Dose Admin Acetaminophen 650 mg 08/14/25 13:37 Acetaminophen 325 Mg Tablet PO Q4H PRN Mild Pain (1-3) or Fever Bisacodyl 5 mg 08/14/25 13:37 Bisacodyl 5 Mg Tablet Ec PO DAILY PRN Constipation Enoxaparin Sodium 40 mg 08/15/25 09:00 08/15/25 08:38 Enoxaparin 40 Mg/0.4 Ml Syringe SUB-Q 40 mg DAILY JASON Administration Hydralazine HCl 10 mg 08/14/25 13:37 Hydralazine Hcl 20 Mg/Ml Vial IV PUSH Q8H PRN Blood Pressure - High, >180/90 Ceftriaxone Sodium 1 gm/ 50 mls @ 100 mls/hr 08/14/25 14:00 08/14/25 15:28 Sodium Chloride IVPB 100 mls/hr Q24H JASON Administration Azithromycin 500 mg/ Sodium 250 mls @ 250 mls/hr 08/14/25 15:00 08/14/25 15:29 Chloride IVPB 08/18/25 15:59 250 mls/hr Q24H JASON Administration Labetalol HCl 200 mg 08/14/25 15:10 08/15/25 06:34 Labetalol Hcl 100 Mg Tablet PO 200 mg Q8HR JASON Administration Ondansetron HCl 4 mg 08/14/25 13:37 Ondansetron Inj 4 Mg/2 Ml Vial IV PUSH Q6H PRN Nausea And Vomiting Perflutren Lipid Microsphere 0 ml 08/14/25 13:37 Perflutren Lipid Microspheres 1.5 Ml Vial Diluted To 10 Ml Total Volume IV PUSH 08/17/25 13:38 ONCE PRN adequate visualization Protocol Vit/Calcium/Iron/Folic Ac 1 tab 08/15/25 09:00 08/15/25 08:38 Multivit/Min/Pren/Fol Ac/Iron Tablet PO 1 tab DAILY JASON Administration Labs Labs: Laboratory Results - last 24 hr 08/14/25 08/14/25 08/15/25 15:03 23:35 04:23 WBC 7.5 RBC 3.36 L Hgb 9.3 L Hct 29.7 L MCV 88.4 MCH 27.7 MCHC 31.3 L RDW 13.6 Plt Count 314 MPV 9.8 Immature Gran % (Auto) 0.7 H Neut % (Auto) 68.4 Lymph % (Auto) 20.0 [place] % (Auto) 6.0 Eos % (Auto) 4.4 Baso % (Auto) 0.5 Lymph # (Auto) 1.50 [place] # (Auto) 0.5 Eos # (Auto) 0.3 Baso # (Auto) 0.0 Abs Immat Gran (auto) 0.05 H Absolute Neuts (auto) 5.1 Absolute Nucleated RBC 0.000 Nucleated RBC % 0.0 Sodium 137 Potassium 3.8 Chloride 106 Carbon Dioxide 23 Anion Gap 8 BUN 8 Creatinine 0.84 Estim Creat Clear Calc 124 Estimated GFR > 60 Glucose 82 Uric Acid 6.3 Calcium 8.4 Influenza A (RT-PCR) Negative Influenza B (RT-PCR) Negative RSV (RT-PCR) Negative SARS-CoV-2 RNA (RT-PCR) Negative Quality VTE Prophylaxis VTE prophylaxis: mechanical ordered
--- NOTE | 2025-08-15 09:14 | PM.CNCAR ---
Assessment and Plan Assessment and plan (1) CHF (congestive heart failure): Qualifiers: Heart failure type: unspecified Heart failure chronicity: acute Qualified Code(s): I50.9 - Heart failure, unspecified Code(s): I50.9 - Heart failure, unspecified Status: Suspected (2) Hypertension: Qualifiers: Hypertension type: unspecified Qualified Code(s): I10 - Essential (primary) hypertension Code(s): I10 - Essential (primary) hypertension Status: Acute Plan Diagnosis: Acute congestive heart failure Hypertension-poorly controlled Recent and vaginal delivery on 08/09/2025; breast-feeding Pneumonia on IV antibiotics Plan: Continue labetalol for blood pressure control. Target SBP less than 120/80 mm Hg Diuresis with IV Lasix 40 mg b.i.d today and switch to p.o. tomorrow.. Check ins and outs and weight daily Check and replace electrolytes to keep potassium greater than 4 and magnesium greater than 2 Check renal function daily TTE to evaluate for peripartum cardiomyopathy. Further guideline directed medical therapy based on TTE results Management of other medical problems per primary team Patient is agreeable with above plan History of Present Illness History of Present Illness Consult date/time: 08/15/25 09:14 Reason For Visit: CHF/Pneumonia Narrative: 29-year-old female with history of recent vaginal delivery on 08/09/2025 complicated by preeclampsia and pseudotumor cerebri syndrome presented with chief complaints of shortness of breath since discharge from hospital post delivery. She also reports swelling of both lower extremities. She initially presented to [place] [facility] on 08/14/2025 for further evaluation of her shortness of breath. She states that post delivery, shortness of breath was initially occurring with exertion such as going up stairs. This is associated with a tight bandlike feeling across her epigastric region/bra line that radiates around to her back bilaterally. Shortness of breath worsened the night prior to admission which she could not catch her breath while lying on her left lateral side. She change her position was treated could not catch her breath. She then presented to the ER. Blood pressure at presentation was 182/101 mm Hg. BNP is elevated at 1190. CT chest showed CHF with probable superimposed bronchopneumonia. She is being diuresed with IV Lasix with good response. She was started on IV antibiotics for pneumonia. She is on labetalol for blood pressure control. Cardiology is consulted for possible peripartum cardiomyopathy. She reports improvement in her shortness of breath and leg swelling since being given Lasix. She denies any chest pain either before or after hospital admission. No palpitations, dizziness, lightheadedness, presyncope, syncope. Workup: Hemoglobin: 9.3 Creatinine: 0.83 Troponin: < 0.012 NT proBNP: 1190 EKG: Sinus rhythm Echo: Pending Chest x-ray: Bilateral diffuse large infiltrate is suggestive of bilateral pneumonia CT chest:IMPRESSION: 1. No pulmonary embolism identified. CHF with probable superimposed bronchopneumonia. Follow-up recommended to assess resolution Review of Systems Review of Systems: A complete review of systems was performed and pertinent positives are reported in the HPI. [facility] Past Medical History Medical History Pseudotumor cerebri syndrome Seasonal allergies TMJ (dislocation of temporomandibular joint) Concussion Family History Family History Mother Hypertension Grandparent Hyperthyroidism Glaucoma Social History Social History Smoking status: Never smoker Tobacco type: e-cigarettes/vaping Second hand tobacco smoke exposure: No Alcohol intake: former Substance use: never Substance use type: marijuana Other substance usage details: 2 x weeek Do You Feel Safe in your Home?: Yes Lack of Transportation: No Lack of Food: Never True Current Housing: I Have Housing Concerned About Future Housing: No Difficulty Paying Gas/Electric Bills: No Difficulty Paying for Meds: No Currently Unemployed: No Education: Associate Degree Difficulty w/ Childcare or Family Care: No Living arrangements: with family Additional living arrangements comments: Occupation/Education: occupation 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 Instructions: Patient Condition acetaminophen 500 mg tablet 1,000 mg PO .q8hr PRN headache 08/06/25 08/14/25 History (Acetaminophen Extra Strength) prhijjh-lrsvcxdpjewsg-tbmujlei 250 1 tablet PO DAILY PRN headache 08/06/25 08/14/25 History mg-250 mg-65 mg tablet (Excedrin Extra Strength) ibuprofen 600 mg tablet 600 mg PO Q6H PRN Cramping #30 tabs 08/10/25 08/14/25 Rx labetalol 100 mg tablet 200 mg (2 x 100 mg) PO TID #60 tabs 08/12/25 08/14/25 Rx Allergies Allergy/AdvReac Type Severity Reaction Status Date / Time Penicillins Allergy Intermediate rash Verified 08/14/25 06:23 Vital Signs Vital Signs - 24 hr 08/14/25 13:34 08/14/25 14:00 08/14/25 15:27 Temperature 37.0 C Pulse Rate 87 92 96 Respiratory Rate 16 Blood Pressure 158/94 H Pulse Oximetry 99 Oxygen Delivery 08/14/25 15:41 08/14/25 16:00 08/14/25 16:00 Temperature 36.7 C Pulse Rate 101 H 93 Respiratory Rate 16 Blood Pressure 144/98 H Pulse Oximetry 97 Oxygen Delivery Room Air 08/14/25 18:00 08/14/25 20:00 08/14/25 20:00 Temperature 36.9 C Pulse Rate 107 H 86 Respiratory Rate 14 Blood Pressure 155/103 H Pulse Oximetry 100 Oxygen Delivery Room Air 08/14/25 20:00 08/14/25 21:15 08/14/25 22:00 Temperature Pulse Rate 77 89 82 Respiratory Rate Blood Pressure Pulse Oximetry Oxygen Delivery 08/14/25 23:51 08/14/25 23:54 08/15/25 00:00 Temperature 36.7 C Pulse Rate 93 84 Respiratory Rate 14 Blood Pressure 148/92 H Pulse Oximetry 97 Oxygen Delivery Room Air 08/15/25 02:00 08/15/25 04:00 08/15/25 04:00 Temperature Pulse Rate 87 81 Respiratory Rate Blood Pressure Pulse Oximetry Oxygen Delivery Room Air 08/15/25 04:00 08/15/25 06:00 08/15/25 06:34 Temperature 36.7 C Pulse Rate 87 86 105 H Respiratory Rate 14 Blood Pressure 152/103 H Pulse Oximetry 100 Oxygen Delivery 08/15/25 07:50 08/15/25 08:00 Temperature 36.7 C Pulse Rate 80 80 Respiratory Rate 16 16 Blood Pressure 159/99 H Pulse Oximetry 99 99 Oxygen Delivery Room Air Exam Narrative: General: Alert oriented x3, no acute distress Neck: Supple, JVD + Chest: Bibasilar rales, no rhonchi Cardiac: S1, S2 +, regular rate, regular rhythm, no murmurs or rubs Extremities: Bilateral lower extremity edema 1+, no skin rash Neurologic: Alert and oriented x3, no focal neurological deficits Results Labs and Meds 08/15/25 04:23 08/15/25 04:23 Lab results: CBC 08/15/25 Range/Units 04:23 WBC 7.5 (4.5-10.0) K/mm3 RBC 3.36 L (4.2-5.4) M/mm3 Hgb 9.3 L (12.0-15.0) g/dL Hct 29.7 L (37.0-47.0) % Plt Count 314 (150-375) k/mm3 Lymph # (Auto) 1.50 (0.9-3.2) K/mm3 [place] # (Auto) 0.5 (0.1-0.6) K/mm3 Eos # (Auto) 0.3 (0-0.3) K/mm3 Baso # (Auto) 0.0 (0.0-0.1) K/mm3 Comprehensive Metabolic Panel 08/15/25 Range/Units 04:23 Sodium 137 (137-145) mmol/L Potassium 3.8 (3.4-5.0) mmol/L Chloride 106 (98-107) mmol/L Carbon Dioxide 23 (22-30) mmol/L BUN 8 (7-17) mg/dL Creatinine 0.84 (0.7-1.0) mg/dL Glucose 82 (65-110) mg/dL Calcium 8.4 (8.4-10.2) mg/dL Intake and Output 08/14/25 08/15/25 08/15/25 23:59 07:59 15:59 Intake Total 120 250 Output Total 0 1700 Balance 120 -1450 Intake: Oral 120 250 Output: Urine 0 1700 Patient Weight 08/15/25 23:59 Weight 131 kg
[2025-08-15] MEDS: FUROSEMIDE INJ 40 MG/4 ML VIAL IV PUSH ×2 (14:37→19:03)
[2025-08-15] MEDS: cefTRIAXone 1 GM in SODIUM CHLORIDE 0.9% IV 50 ML 100 ML IVPB (14:37)
[2025-08-15] MEDS: AZITHROMYCIN IV 500 MG in SODIUM CHLORIDE 0.9% IV 250 ML IVPB (15:23)
[2025-08-16] VITALS (13 sets, daily range): BP systolic 138–149; BP diastolic 85–100; PULSE 75–124; RESP 14–18; TEMP 36.5–36.7; O2SAT 99–100
[2025-08-16] MEDS: LABETALOL HCL 100 MG TABLET 200 MG PO (05:19)
[2025-08-16 07:56] LABS: Hematocrit 29.8 % (37.0-47.0); Hemoglobin 9.5 g/dL (12.0-15.0); Immature Granulocyte Percent A 0.6 % (0-0.5); Lymphocytes Absolute Auto 1.37 K/mm3 (0.9-3.2); Mean Corpuscular HGB Conc 31.9 g/dl (32-36); Mean Corpuscular Hemoglobin 28.4 pg (26-34); Mean Corpuscular Volume 89.0 fl (80-100); Nucleated Red Blood Cells Absolute Auto 0.000 K/mm3 (0.0-0.012); Nucleated Red Blood Cells Perc 0.0 % (0.0-0.2); Platelet Count Result 316 k/mm3 (150-375); Red Blood Count 3.35 M/mm3 (4.2-5.4); White Blood Count 7.2 K/mm3 (4.5-10.0)
[2025-08-16 08:21] LABS: Alanine Aminotransferase 23 U/L (6-35); Albumin Level 3.6 g/dL (3.5-5.1); Alkaline Phosphatase 97 U/L (38-126); Anion Gap 7 mmol/L (4-12); Aspartate Amino Transferase 24 U/L (14-36); Bilirubin,Total 0.3 mg/dL (0.2-1.3); Blood Urea Nitrogen 10 mg/dL (7-17); Calcium 8.5 mg/dL (8.4-10.2); Carbon Dioxide 22 mmol/L (22-30); Chloride 107 mmol/L (98-107); Estimated CRCL calculation 135 ml/min; Estimated Glomerular Filt Rate > 60; Glucose 89 mg/dL (65-110); Potassium 4.0 mmol/L (3.4-5.0); Sodium 136 mmol/L (137-145); Total Protein 6.7 g/dL (6.3-8.2)
--- NOTE | 2025-08-16 09:04 | P.PNCA_ITS ---
Progress Note: A&P Assessment and Plan (1) Peripartum cardiomyopathy, : Code(s): O90.3 - Peripartum cardiomyopathy Status: Acute (2) Hypertension: Qualifiers: Hypertension type: unspecified Qualified Code(s): I10 - Essential (primary) hypertension Code(s): I10 - Essential (primary) hypertension Status: Acute (3) Severe obesity (BMI 35.0-39.9) with comorbidity: Code(s): E66.01 - Morbid (severe) obesity due to excess calories Status: Acute Plan Diagnosis: Peripartum cardiomyopathy with mildly depressed LVEF of 50%; grade 2 diastolic dysfunction; moderate pulmonary hypertension Congestive heart failure secondary to above-improving with IV diuresis [id number]-[id number] MR Hypertension-SBP in the 140s to 160s range with labetalol, still needs better control Recent and vaginal delivery on 08/09/2025; breast-feeding Pneumonia on antibiotics Plan: Blood pressure still high with SBP in the 140s to 160s range. Increase dose of labetalol from 200 mg p.o. t.i.d. to 300 mg p.o. t.i.d.. Target SBP less than 120/80 mm Hg Lasix p.o. 40 mg today. At discharge give Lasix 20 mg p.o. daily for 1 week. Check BNP in 1 week. Follow-up with Dr. Corley in cardiology in 1 week to reassess volume status, labs and decide Lasix dose Follow-up echo in 3 months to evaluate LVEF, severity of mitral regurgitation and pulmonary hypertension Check ins and outs and weight daily Check and replace electrolytes to keep potassium greater than 4 and magnesium greater than 2 Check renal function daily Management of other medical problems per primary team Patient is agreeable with above plan Cardiology will sign off. Please call us with any questions. Subjective Date/time seen: 08/16/25 09:04 Interval history: Reason for encounter: Peripartum cardiomyopathy with LVEF mildly depressed at 50%, congestive heart failure, hypertension Relevant history: Blood pressure is still not controlled, SBP is in the 140s to 160s range. She had good response to IV Lasix. She denies any chest pain. Shortness of breath and leg swelling are both decreased. Review of Systems Cardiovascular: Comments: As per HPI Respiratory: Comments: As per HPI Exam Narrative: General: Alert oriented x3, no acute distress Neck: Supple, no JVD Chest: Bilaterally clear to auscultation, no rales or rhonchi Cardiac: S1, S2 +, regular rate, regular rhythm, no murmurs or rubs Extremities: Bilateral lower extremity edema 1+, no skin rash Neurologic: Alert and oriented x3, no focal neurological deficits Objective Data Vital Signs Vital Signs: Vital Signs - 24 hr 08/15/25 10:00 08/15/25 11:48 08/15/25 12:00 Temperature 36.6 C Pulse Rate 84 81 85 Respiratory Rate 14 14 Blood Pressure 152/100 H Pulse Oximetry 98 98 Oxygen Delivery Room Air 08/15/25 12:00 08/15/25 14:00 08/15/25 16:00 Temperature 36.8 C Pulse Rate 85 86 85 Respiratory Rate 16 Blood Pressure 149/94 H Pulse Oximetry 99 Oxygen Delivery 08/15/25 16:00 08/15/25 16:00 08/15/25 18:00 Temperature Pulse Rate 92 85 78 Respiratory Rate 14 Blood Pressure Pulse Oximetry 98 Oxygen Delivery Room Air 08/15/25 20:00 08/15/25 20:00 08/15/25 20:00 Temperature 36.7 C Pulse Rate 88 105 H Respiratory Rate 16 Blood Pressure 151/97 H Pulse Oximetry 100 Oxygen Delivery Room Air 08/15/25 22:00 08/15/25 22:07 08/15/25 23:27 Temperature 36.7 C Pulse Rate 97 80 86 Respiratory Rate 14 Blood Pressure 154/97 H Pulse Oximetry 98 Oxygen Delivery 08/16/25 00:00 08/16/25 00:00 08/16/25 02:00 Temperature Pulse Rate 84 87 Respiratory Rate Blood Pressure Pulse Oximetry Oxygen Delivery Room Air 08/16/25 04:00 08/16/25 04:00 08/16/25 04:00 Temperature 36.5 C Pulse Rate 85 75 Respiratory Rate 18 Blood Pressure 145/89 H Pulse Oximetry 100 Oxygen Delivery Room Air 08/16/25 05:19 08/16/25 06:00 08/16/25 07:30 Temperature 36.7 C Pulse Rate 89 82 83 Respiratory Rate 14 Blood Pressure 146/100 H Pulse Oximetry 99 Oxygen Delivery Intake/Output Intake/Output: Intake & Output 08/13/25 08/14/25 08/15/25 08/16/25 23:59 23:59 23:59 23:59 Intake Total 420 2060 540 Output Total 0 3000 400 Balance 420 -940 140 Meds/Results Medications: Active Medications Generic Name Dose Route Start Last Admin Trade Name Juan Carlos PRN Reason Stop Dose Admin Acetaminophen 650 mg 08/14/25 13:37 Acetaminophen 325 Mg Tablet PO Q4H PRN Mild Pain (1-3) or Fever Bisacodyl 5 mg 08/14/25 13:37 Bisacodyl 5 Mg Tablet Ec PO DAILY PRN Constipation Enoxaparin Sodium 40 mg 08/15/25 09:00 08/15/25 08:38 Enoxaparin 40 Mg/0.4 Ml Syringe SUB-Q 40 mg DAILY JASON Administration Furosemide 40 mg 08/16/25 09:00 Furosemide 40 Mg Tablet PO BID JASON Hydralazine HCl 10 mg 08/14/25 13:37 Hydralazine Hcl 20 Mg/Ml Vial IV PUSH Q8H PRN Blood Pressure - High, >180/90 Ceftriaxone Sodium 1 gm/ 50 mls @ 100 mls/hr 08/14/25 14:00 08/15/25 14:37 Sodium Chloride IVPB 100 mls/hr Q24H JASON Administration Azithromycin 500 mg/ Sodium 250 mls @ 250 mls/hr 08/14/25 15:00 08/15/25 15:23 Chloride IVPB 08/18/25 15:59 250 mls/hr Q24H JASON Administration Labetalol HCl 200 mg 08/14/25 15:10 08/16/25 05:19 Labetalol Hcl 100 Mg Tablet PO 200 mg Q8HR JASON Administration Ondansetron HCl 4 mg 08/14/25 13:37 Ondansetron Inj 4 Mg/2 Ml Vial IV PUSH Q6H PRN Nausea And Vomiting Perflutren Lipid Microsphere 0 ml 08/14/25 13:37 Perflutren Lipid Microspheres 1.5 Ml Vial Diluted To 10 Ml Total Volume IV PUSH 08/17/25 13:38 ONCE PRN adequate visualization Protocol Vit/Calcium/Iron/Folic Ac 1 tab 08/15/25 09:00 08/15/25 08:38 Multivit/Min/Pren/Fol Ac/Iron Tablet PO 1 tab DAILY JASON Administration Labs Labs: Laboratory Results - last 24 hr 08/16/25 07:45 WBC 7.2 RBC 3.35 L Hgb 9.5 L Hct 29.8 L MCV 89.0 MCH 28.4 MCHC 31.9 L RDW 13.6 Plt Count 316 MPV 9.5 Immature Gran % (Auto) 0.6 H Neut % (Auto) 68.8 Lymph % (Auto) 19.1 [place] % (Auto) 6.5 Eos % (Auto) 4.3 Baso % (Auto) 0.7 Lymph # (Auto) 1.37 [place] # (Auto) 0.5 Eos # (Auto) 0.3 Baso # (Auto) 0.1 Abs Immat Gran (auto) 0.04 H Absolute Neuts (auto) 5.0 Absolute Nucleated RBC 0.000 Nucleated RBC % 0.0 Sodium 136 L Potassium 4.0 Chloride 107 Carbon Dioxide 22 Anion Gap 7 BUN 10 Creatinine 0.75 Estim Creat Clear Calc 135 Estimated GFR > 60 Glucose 89 Calcium 8.5 Total Bilirubin 0.3 AST 24 ALT 23 Alkaline Phosphatase 97 Total Protein 6.7 Albumin 3.6 Imaging My impression: TTE: Low normal LVEF 50-55%, mild concentric LV hypertrophy, grade 2 diastolic dysfunction, [id number] MR, mild TR, moderate pulmonary hypertension with pulmonary artery systolic pressure of 53 mm Hg, very small posterior pericardial effusion
[2025-08-16] MEDS: FUROSEMIDE 40 MG TABLET PO (09:10)
[2025-08-16] MEDS: MULTIVIT/MIN/PREN/FOL AC/IRON TABLET 1 TAB PO (09:10)
[2025-08-16] MEDS: ENOXAPARIN 40 MG/0.4 ML SYRINGE SUB-Q (09:11)
--- NOTE | 2025-08-16 10:14 | P.DS_ITS ---
DS: Admitting Diagnosis Discharge Date 08/16/2025 Admitting Diagnosis CHF exacerbation, pneumonia DS: Discharge Diagnosis Discharge Diagnosis (1) CHF (congestive heart failure): Qualifiers: Heart failure chronicity: acute Heart failure type: unspecified Qualified Code(s): I50.9 - Heart failure, unspecified Code(s): I50.9 - Heart failure, unspecified Status: Suspected Assessment and Plan: The patient presented on 08/14 2 [facility], transferred here for Cardiology evaluation due to suspected CHF . She delivered on 08/09 vaginally which was complicated by preeclampsia. * BNP 1190 * echo ordered * given Lasix 20 mg IV at OSH. Patient currently reporting significant improvement with IV diuresis, will give additional 20 mg this evening. Will hold off on further diuresis as the patient has significantly improved with 1st dose and there is minimal peripheral edema on exam. Patient does have bibasilar crackles, however imaging also demonstrating bibasilar pneumonia. 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 CHF with probable superimposed bronchopneumonia. Follow-up recommended to assess resolution * risk/complicating factors: suspected CHF, ? * started on CAP tx: Ceftriaxone and azithromycin * supportive care * Switch to PO upon/near discharge (4) Hypertension: Qualifiers: Hypertension type: unspecified Qualified Code(s): I10 - Essential (primary) hypertension Code(s): I10 - Essential (primary) hypertension Status: Acute Assessment and Plan: Patient has recent history of vaginal delivery on 08/09 that was complicated by preeclampsia. She was discharged home on labetalol 200 mg t.i.d., continued. She arrived to [facility] with a blood pressure of 182/101. She was treated with labetalol 10 mg at the OSH. Arrived with a blood pressure 158/94. Reviewed labs, platelet count/LFTs/renal function within normal limits. No protein noted in the urine. Check uric acid. * hydralazine PRN * continue labetalol 200 mg t.i.d. * check uric acid >> 6.3 * monitor Plan Diet: Regular GI Prophylaxis: N/a DVT Prophylaxis: Lovenox SQ IV fluids: LR 500 mL bolus Lines/Tubes: Peripheral IV Code Status: Full code DS: Summary Hospital Course Reason for hospitalization: Shortness of Breath Hospital Course: 29 y/o F with PMH of recent /vaginal delivery on 08/09 complicated by preeclampsia and pseudotumor cerebri syndrome presented with shortness of breath. The patient presented to [facility] on 08/14 for further evaluation of shortness of breath. She reports she has had shortness of breath since her discharge from the hospital post delivery. She describes the shortness of breath initially as occurring with exertion such as using the stairs or walking up a ramp. It is accompanied by a tight bandlike feeling across her epigastric region/bra line that radiates around to her back bilaterally. She reports associated lower extremity edema that was additionally present when she was discharged from the hospital, has not worsened. She reports the shortness of breath however worsened last night. She noted when she rolled over onto her side she became significantly winded at rest and felt like she could not catch her breath. Shortness of breath is not accompanied by cough, fever, chills, body aches, nausea, vomiting, or diarrhea. She does not or sneezing. She has a past medical history significant for recent /vaginal delivery on 08/09 ( x5 days) that was complicated by preeclampsia. The patient is . Initial VS at presentation: He 97.1? F, HR 83, R 16, 182/101, and 96% on RA. ED workup showed: No leukocytosis, hemoglobin 8.2 (8.7 on 08/10), normal coags, elevated D-dimer, ABG showed no significant abnormalities, no significant electrolyte derangements, creatinine 0.74 and GFR >60, initial troponin negative, BNP 1190, and UA showed a low specific gravity, 3+ blood, trace leuk esterase, 6-10 RBC. CXR showed bilateral pneumonia. Chest CTA showed no PE, CHF with probable superimposed bronchopneumonia. OBGYN consulted regarding peripartum cardiomyopathy. Recommend continued fluid restriction Lasix p.r.n., continuing beta blockers, as well as deferring to Cardiology recommendations regarding echocardiogram results. Cardiology consulted, given continued elevated blood pressures, recommend increasing labetalol to 300 mg t.i.d. in continuing. Also recommend diuresis with IV Lasix 40 mg b.i.d. with switched to oral discharge. Was recommended continuing check ins and outs of weight daily. Echocardiogram showed EF of 50-55%, grade 2 diastolic dysfunction, mildly enlarged atrial chamber dimension, mild-to- moderate MVR, mild TVR, moderate pulmonary hypertension. Discussed with cardiology who agrees with patient being stable for discharge at this time. Will recommend continue labetalol t.i.d. Anca mg in Lasix p.o. 40 mg. Will have the patient follow-up with Cardiology in 1 week to continue these medications until the patient can see the metal refiner in the outpatient setting. Patient is otherwise hemodynamically stable for discharge at this time. She denies any chest pain, shortness of breath, nausea/vomiting, or lower extremity swelling. Plan for discharge home at this time. Status at Discharge Functional status at discharge: independent ambulation Overall status at discharge: patient is back to baseline Time Spent with Patient Time attestation: Total time spent providing and/or coordinating discharge services: 31 Exam Const: General: comfortable and no acute distress Other: , female, nontoxic appearance HENMT: Face/Nose/Sinus: Normal nares present Mouth: Yes moist mucous membranes Eyes: General: appearance normal, both eyes and all related structures Sclera: sclerae normal Pupils: Equal, round and reactive pupils present EOM: EOMs intact bilaterally Resp: Effort & Inspection: normal respiratory effort Other: Faint bibasilar crackles, no wheezing. Cardio: Rate: regular rate Rhythm: regular rhythm Other: S1-S2 present without murmur, rub, ectopy GI: Other: Abdomen soft, nondistended, nontender. Normoactive bowel sounds in all quadrants. Skin: General skin exam: normal color and no rashes or lesions noted Wounds: no wounds Neuro: Cranial nerves: Yes Equal, round and reactive pupils present Speech: normal speech Motor exam (neuro): 5/5 motor strength present throughout Sensory Exam: normal sensation Other: A&O x4 Extrem: Other: Trace edema to bilateral lower extremities, nonpitting, and symmetric. Psych: Mental Status: mental status grossly normal Affect: normal affect Other: Good insight and judgment, very pleasant DS: Data Data Completed and Pending Labs on day of discharge: Labs from last 24 hours 08/16/25 07:45 WBC 7.2 RBC 3.35 L Hgb 9.5 L Hct 29.8 L MCV 89.0 MCH 28.4 MCHC 31.9 L RDW 13.6 Plt Count 316 MPV 9.5 Immature Gran % (Auto) 0.6 H Neut % (Auto) 68.8 Lymph % (Auto) 19.1 [place] % (Auto) 6.5 Eos % (Auto) 4.3 Baso % (Auto) 0.7 Lymph # (Auto) 1.37 [place] # (Auto) 0.5 Eos # (Auto) 0.3 Baso # (Auto) 0.1 Abs Immat Gran (auto) 0.04 H Absolute Neuts (auto) 5.0 Absolute Nucleated RBC 0.000 Nucleated RBC % 0.0 Sodium 136 L Potassium 4.0 Chloride 107 Carbon Dioxide 22 Anion Gap 7 BUN 10 Creatinine 0.75 Estim Creat Clear Calc 135 Estimated GFR > 60 Glucose 89 Calcium 8.5 Total Bilirubin 0.3 AST 24 ALT 23 Alkaline Phosphatase 97 Total Protein 6.7 Albumin 3.6 Discharge Plan Discharge Attending physician on discharge: Shamika Ibarra Consulting providers: Elkin Corley; Eliazar Moore; Isaac Allen Discharging Clinician: Isaac Allen Anticipated Discharge Date/Time: 08/16/25 09:57 Patient Disposition: Home Activity: no straining Diet: heart healthy Discharge Instructions: Discharge disposition: Home Follow-up with the primary care physician within 1-2 weeks Follow-up with Dr. Corley of Cardiology in 1 week Take medications as prescribed You will be prescribed Labetalol 300mg to be taken 3 times daily. You will also be prescribed Lasix 20mg to be taken daily until you can see the metal refiner, then they will determine dosage for this medication. You will also be given Doxycycline to be taken twice daily for the next 4 days for your pneumonia. An order for outpatient blood work will be placed, this will be a repeat BNP to help assess cardiac function. Get this obtained within the next week. Monitor blood pressures Take caution while standing, rising, or moving Change positions slowly taking a break between each position change If you standing feel dizzy sit back down and take a break Encouraged to continue with yearly vaccinations Return to the emergency department if he developed sudden shortness of breath, chest pain, nausea, vomiting, upset stomach or intractable diarrhea Return to the emergency department if you develop fever greater than 101.5 Thank you for choosing [facility] for your healthcare needs Patient Instructions: Antibiotic Form Patient Language: Grenadian Stand Alone Forms: General Discharge Information Follow-up/Referrals: Elkin Corley MD [Physician, Cardiology] Afua Eldridge NP [Primary Care Provider, Family Practice] Discharge Medications: New labetalol 100 mg Tablet 300 mg PO Q8HR 14 Days Qty: 126 0RF furosemide [Lasix] 20 mg tablet 20 mg PO DAILY Qty: 7 0RF doxycycline hyclate 100 mg tablet 100 mg PO BID 4 Days Qty: 8 0RF Continued Classic 28 mg iron- 800 mcg tablet 1 tablet PO DAILY [id number] [Excedrin Extra Strength] 250-250-65 mg tablet 1 tablet PO DAILY PRN (Reason: headache) acetaminophen [Acetaminophen Extra Strength] 500 mg tablet 1,000 mg PO .q8hr PRN (Reason: headache) Patient Comments: Pt only takes 1-2 times per day ibuprofen 600 mg Tablet 600 mg PO Q6H PRN (Reason: Cramping) Qty: 30 0RF Discontinued levocetirizine [Xyzal] 2.5 mg/5 mL solution 2.5 mg PO DAILY labetalol 100 mg tablet 200 mg PO TID Qty: 60 0RF Other Ambulatory Orders: B Type Natriuretic Peptide (Routine) Timeframe: 5 Days Location: Determined by Patient Ordered By: Isaac Allen Date of admission: 08/15/25 11:11 Primary Care Provider: Afua Eldridge Admitting Provider: Paresh Flores Attending physician on admission: Paresh Flores Condition: Stable Quality VTE Prophylaxis VTE prophylaxis: mechanical ordered
[2025-08-16] MEDS: LABETALOL HCL 100 MG TABLET PO (11:06)
[2025-08-16] MEDS: LABETALOL HCL 100 MG TABLET 300 MG PO (13:52)
== END 2025-08-16 15:10 | disposition home or self-care (01) | DRG 776 ==
PROVIDERS: Student in an Organized Health Care Education/Training Program; Admitting Provider Family Medicine; PCP Nurse Practitioner Family; Visit Provider Physician Assistant
DX: O90.3 Peripartum cardiomyopathy (principal); J18.9 Pneumonia, unspecified organism; Z68.42 Body mass index [BMI] 45.0-49.9, adult; O99.355 Diseases of the nervous system complicating the puerperium; I50.9 Heart failure, unspecified; G93.2 Benign intracranial hypertension; O99.53 Diseases of the respiratory system complicating the puerperium; O14.95 Unspecified pre-eclampsia, complicating the puerperium; O99.215 Obesity complicating the puerperium; E66.01 Morbid (severe) obesity due to excess calories
CPT/HCPCS: 36415; 80048; 80053; 84550; 85025; 87637; 93306; A9270; G0378; J0456; J0696; J1650; J1938; J7050

== ENCOUNTER 2025-08-23 11:11 | Outpatient (CLI) | payer OTHER, SELFPAY ==
--- OUTSIDE RECORDS SUMMARY | 2025-08-23 11:57 | XMS_ITS | Encounter Summary ---
Author Organization [facility] Address [address] [place] [address] Phone Care Team Providers Care Business Planning Analyst Name Role Phone Kaela Ernst DO Primary Care Provider [phone] Lobito Mcelroy DO Primary Care Provider Reason for Referral * Diagnostic Imaging (Routine) - Closed Specialty Diagnoses / Procedures Referred By Contac t Referred To Contact Diagnoses Idiopathic intracranial hypertension Papilledema Pseudotumor cerebri Procedures OCT, Retina - OU - Both Eyes Trenton Tiwari MD [address] [place] [address] Phone: tel: fax: [facility] (All Locations) Referral ID Status Reason Start Date Expiration Date Visits Re quested Visits Authorized [id number] Closed 02/03/2024 03/04/2025 1 1 GER PORTABLE * Diagnostic Imaging (Routine) - Closed Specialty Diagnoses / Procedures Referred By Contac t Referred To Contact Diagnoses Idiopathic intracranial hypertension Papilledema Pseudotumor cerebri Procedures OCT, Optic Nerve - OU - Both Eyes Trenton Tiwari MD [address] [place] [id number] Phone: tel: fax: [facility] (All Locations) Referral ID Status Reason Start Date Expiration Date Visits Re quested Visits Authorized [id number] Closed 02/03/2024 03/04/2025 1 1 GER PORTABLE * Diagnostic Imaging (Routine) - Closed Specialty Diagnoses / Procedures Referred By Preet t Referred To Contact Diagnoses Idiopathic intracranial hypertension Papilledema Pseudotumor cerebri Procedures Pineda Visual Field - OU - Both Eyes Trenton Tiwari MD [address] [place] [id number] Phone: tel: fax: [facility] (All Locations) Referral ID Status Reason Start Date Expiration Date Visits Re quested Visits Authorized [id number] Closed 02/03/2024 03/04/2025 1 1 GER PORTABLE Encounter Details Date Type Department Care Team (Late st Contact Info) Description 02/03/2024 Orders Only [facility] Medicine Ophthalmology [address] [place] [address] Health [address] [place] [phone] Trenton Tiwari MD [address] [place] [id number] Idiopathic intracranial hypertension (Primary Dx); Papilledema; Pseudotumor cerebri Social History Tobacco Use Types Packs/Day Years Used Date Smoking Tobacco: Former Alcohol Use Standard Drinks/Week Comments Yes 0 (1 standard drink = 0.6 oz pur e alcohol) Social Comments No Sex and Gender Information Value Date Recorded Sex Assigned at Not on file Legal Sex Female 7:19 PM MANAGER PORTABLE Gender Identity Female 08/11/2023 11:20 AM CDT [...] hypertension documented in this encounter Care Teams Business Planning Analyst Relationship Specialty Start Date End Date Kaela Ernst DO [address] [id number] PCP - General Internal Medicine 01/24/20 11/28/24 Lobito Mcelroy DO [address] [place] [address] PCP - General Family Medicine 11/29/24 documented as of this encounter
--- OUTSIDE RECORDS SUMMARY | 2025-08-23 11:57 | XMS_ITS | Clinical Summary ---
Author Organization [facility] Address [address] [place] [address] Care Team Providers Care Aeronautics Commission Director Name Role Phone Lobito Mcelroy Primary Care [...] Encounters Date Type Department Care Team Description 08/17/2025 Orders Only [facility] Cardiology [address] [place] [address] Keturah Grayson MD 07/29/2025 9:45 AM CDT Office Visit [facility] Medicine Ophthalmology [address] [place] [phone] Trenton Tiwari MD Unspecified disorder of visual pathways (Primary Dx); Papilledema; Idiopathic intracranial hypertension 07/29/2025 9:20 AM CDT Imaging Exam [facility] Medicine Ophthalmology [address] [place] [phone] Unspecified disorder of visual pathways from Last 3 Months Surgical History Surgery [...] on file Legal Sex Female 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 ESTATE 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 Gender Identity Female 08/11/2023 11:20 AM CDT Sexual Orientation Not on file Obstetrics History Last Filed Vital Signs Vital Sign Reading Time Taken Comments Blood Pressure 136/77 02/04/2020 12:00 PM REAL ESTATE BROKER Pulse 72 02/04/2020 12:00 PM REAL ESTATE BROKER Temperature 36.6 C (97.8 F) 02/04/2020 12:00 PM REAL ESTATE BROKER Respiratory Rate 16 02/04/2020 12:00 PM REAL ESTATE BROKER Oxygen Saturation 99% 02/04/2020 12:00 PM REAL ESTATE BROKER Inhaled Oxygen Concentration - - Weight 118.8 kg (262 lb) 10/27/2023 2:43 PM REAL ESTATE BROKER Height 172.7 cm (5' 8) 10/27/2023 2:43 PM REAL ESTATE BROKER Body Mass Index 39.84 10/27/2023 2:43 PM REAL ESTATE BROKER Plan of Treatment Health Maintenance Due Date Last Done Comments Cervical Cancer Screening 1997 Depression Screening 1997 Hepatitis C Screening 1997 Varicella Vaccines (1 of 2 - 13+ 2-dose series) 2010 Regular Well Visit/Exam 18-64 2015 HPV Vaccines (1 - 3-dose SCDM series) 2024 Covid-19 Vaccine (2 - 2024- season) 2025 08/24/2021 Influenza Vaccine (#1) 2025 DTaP/Tdap/Td Vaccine (5 - Td or Tdap) 08/11/2035 08/11/2025, 04/05/1998, 01/18/1998, Additional history exists Hepatitis B Screening Completed 1997, 997 Pneumococcal vaccine <65 Aged Out No longer eligible based on patient's age to complete this topic Procedures Procedure Name Priority Date/Time Associated Diagnosis Comments CARDIOLOGY DOCUMENT SCAN Routine 08/16/2025 2:55 PM CDT CARDIOLOGY DOCUMENT SCAN Routine 08/15/2025 2:39 PM CDT OCT, RETINA - OU - BOTH EYES Routine 07/29/2025 9:01 AM CDT Unspecified disorder of visual pathways OCT, OPTIC NERVE - OU - BOTH EYES Routine 07/29/2025 9:01 AM CDT Unspecified disorder of visual pathways from Last 3 Months Results * Cardiology Document Scan (08/16/2025 2:55 PM CDT) Anatomical Region Laterality Modality Other us Keturah Grayson MD CV CARDIAC SERVICES PROCEDU RES Final Result * Cardiology Document Scan (08/15/2025 2:39 PM CDT) Anatomical Region Laterality Modality Other us Keturah Grayson MD CV CARDIAC SERVICES PROCEDU RES Final Result * OCT, Retina - OU - [...] al Result from Last 3 Months Insurance [facility] H[facility]PPO Address: [facility] [address] [place] [address] [facility] H[facility]/PPO Address: [address] [address] [place] [address] Advance Directives For more information, please contact: [phone] * Full Code (Latest Code Status on File) Date Activated Date Inactivated Comments 02/04/2020 11:17 AM 02/04/2020 7:26 PM Care Teams Aeronautics Commission Director Relationship Specialty Start Date End Date Lobito Mcelroy DO [address] [place] [address] PCP - General Family Medicine 11/29/24
--- OUTSIDE RECORDS SUMMARY | 2025-08-23 11:57 | XMS_ITS | Clinical Summary ---
Author Organization [email or web address] Address [address] [place] [address] Care Team Providers Care Data Warehousing Manager Name Role Phone Klever Kaela Hutchinson DO Primary Care Provider [phone] Source Comments [facility],non-owned Affiliates and Associated Physician Practices is amultiple site organization consisting of ambulatory clinics and hospital sitesin [place], [place], [place] and [place]. This disclosure is being madepursuant to the Care Everywhere program and may not contain all information available regarding this patient. Last updated 18.[email or web address] Allergies Active Allergy Reactions Criticality Noted Date [...] on file Legal Sex Female 5:38 AM ENERGY DIRECTOR Gender Identity Not on file Sexual Orientation [...] of 3 - 19+ 3-dose series) 2016 PAP SMEAR 03/16/2024 03/16/2021 DEPRESSION SCREENING 12/01/2024 COVID-19 VACCINE (1 - [...] Procedure Name Priority Date/Time Associated Diagnosis Comments PAP IG LB CT+NG RFLX HPV APTIMA ASCU Routine 03/16/2021 2:36 PM CDT Well woman exam from Last 3 Months or Most Recently Relevant to Health Maintenance Results * PAP IG LB CT+NG RFLX HPV APTIMA ASCU (03/16/2021 2:36 PM CDT) Diagnosis [facility] ACCOUNT BILL Comment:NEGATIVE FOR INTRAEP ITHELIAL LESION OR MALIGNANCY. Specimen Adequacy [facility] ACCOUNT BILL Comment:Satisfactory for mukul lukayleen. No endocervical component is identified. Clinician Provided ICD10 [facility] ACCOUNT BILL Comment: Z01.419 Z30.09 Performed by [facility] ACCOUNT BILL Comment:Julisa Iqbal, Cyto technologist (ASCP) Comment . [facility] ACCOUNT BILL Note [facility] ACCOUNT BILL Comment: The Pap smear is a screening test designed to aid in the detection of premalignant and malignant conditions of the uterine cervix. It is not a diagnostic procedure and should not be used as the sole means of detecting cervical cancer. Both false-positive and false-negative reports do occur. . IGLBP CPT Code Automation [facility] ACCOUNT BILL Comment: This liquid based ThinPrep(R) pap test was screened with the use of an image guided system. Note [facility] ACCOUNT BILL Comment: The HPV DNA reflex criteria were not met with this specimen result therefore, no HPV testing was performed. . Chlamydia trachomatis SVITLANA Negative Negative [facility] ACCOUNT BILL GC DNA Probe Negative Negative [facility] ACCOUNT BILL PART OF UTERINE CERVIX / Unknown 03/16/2021 2:36 PM CDT 03/19/2021 Narrative [facility] ACCOUNT BILL - 03/20/2021 3:08 PM CDT Source.............Cervix No. of containers..01 ThinPrep Vial Resulting Agency Comment Lab Testing performed at: [address] [id number] Kristie Hoang MD LAB - PATHOLOGY/CYTOLOGY OR DERABLES Final Result [facility] ACCOUNT BILL [address] [place] [address] from Last 3 Months or Most Recently Relevant to Health Maintenance Insurance [facility] SELF PAY NO INSURANCE Member Subscriber Plan / Payer (Ef fective for All Dates) Name:Jian Castillo Jose J Member ID:Not on file Relation to Subscriber:Not on file Name:JIAN CASTILLO Jose J Subscriber ID:Not on file (Home) Address: [address] [place] [address] Payer ID:Not on file Group ID:Not on file Type:Self Pay Address: [place], [place] Care Teams Data Warehousing Manager Relationship Specialty Start Date End Date Kaela Ernst DO PCP - General Internal Medicine 03/16/21
[2025-08-23 12:32] LABS: NT Pro B Type Natriuretic Pept 26 pg/mL (19.9-100)
== END 2025-08-23 11:12 ==
LOC: CHSLAB 11:12
PROVIDERS: PCP Nurse Practitioner Family; Visit Provider Physician Assistant
DX: I50.9 Heart failure, unspecified (principal)
CPT/HCPCS: 36415; 83880

== ENCOUNTER 2025-09-05 07:56 | Outpatient (CLI) | payer OTHER, SELFPAY ==
--- OUTSIDE RECORDS SUMMARY | 2025-09-05 08:04 | XMS_ITS | Clinical Summary ---
Author Organization [facility] Address [address] [place] [address] Care Team Providers Care Legal Process Specialist Name Role Phone Klever Kaela Hutchinson DO Primary Care Provider [phone] Source Comments [facility],non-owned Affiliates and Associated Physician Practices is amultiple site organization consisting of ambulatory clinics and hospital sitesin [place], [place], [place] and [place]. This disclosure is being madepursuant to the Care Everywhere program and may not contain all information available regarding this patient. Last updated 18.[facility] Allergies Active Allergy Reactions Criticality Noted Date [...] on file Legal Sex Female 5:38 AM TREER Gender Identity Not on file Sexual Orientation [...] Agency Comment Lab Testing performed at: [address] [id number] Kristie Hoang MD LAB - PATHOLOGY/CYTOLOGY OR DERABLES Final Result [facility] ACCOUNT BILL [address] [place] [address] from Last 3 Months or Most Recently Relevant to Health Maintenance Insurance [facility] SELF PAY NO INSURANCE Member Subscriber Plan / Payer (Ef fective for All Dates) Name:Jian Castillo Jose J Member ID:Not on file Relation to Subscriber:Not on file Name:JIAN CASTILLO Jose J Subscriber ID:Not on file (Home) Address: [address] [place] [address] Payer ID:Not on file Group ID:Not on file Type:Self Pay Address: [place], [place] Care Teams Legal Process Specialist Relationship Specialty Start Date End Date Kaela Ernst DO PCP - General Internal Medicine 03/16/21
--- OUTSIDE RECORDS SUMMARY | 2025-09-05 08:04 | XMS_ITS | Encounter Summary ---
Author Organization [facility] Address [address] [place] [address] Phone Care Team Providers Care Digital Media Specialist Name Role Phone Kaela Ernst DO Primary Care Provider [phone] Lobito Mcelroy DO Primary Care Provider Reason for Referral * Diagnostic Imaging (Routine) - Closed Specialty Diagnoses / Procedures Referred By Contac t Referred To Contact Diagnoses Idiopathic intracranial hypertension Papilledema Pseudotumor cerebri Procedures OCT, Retina - OU - Both Eyes Trenton Tiwari MD [address] [place] [address] Phone: tel: fax: [facility] (All Locations) Referral ID Status Reason Start Date Expiration Date Visits Re quested Visits Authorized [id number] Closed 02/03/2024 03/04/2025 1 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 * Diagnostic Imaging (Routine) - Closed Specialty Diagnoses / Procedures Referred By Contac t Referred To Contact Diagnoses Idiopathic intracranial hypertension Papilledema Pseudotumor cerebri Procedures OCT, Optic Nerve - OU - Both Eyes Trenton Tiwari MD [address] [place] [address] Phone: tel: fax: [facility] (All Locations) Referral ID Status Reason Start Date Expiration Date Visits Re quested Visits Authorized [id number] Closed 02/03/2024 03/04/2025 1 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 * Diagnostic Imaging (Routine) - Closed Specialty Diagnoses / Procedures Referred By Preet t Referred To Contact Diagnoses Idiopathic intracranial hypertension Papilledema Pseudotumor cerebri Procedures Pineda Visual Field - OU - Both Eyes Trenton Tiwari MD [address] [place] [address] Phone: tel: fax: [facility] (All Locations) Referral ID Status Reason Start Date Expiration Date Visits Re quested Visits Authorized [id number] Closed 02/03/2024 03/04/2025 1 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 Encounter Details Date Type Department Care Team (Late st Contact Info) Description 02/03/2024 Orders Only [facility] Medicine Ophthalmology [address] [place] [address] Health [address] [place] [phone] Trenton Tiwari MD [address] [place] [phone] Idiopathic intracranial hypertension (Primary Dx); Papilledema; Pseudotumor cerebri Social History Tobacco Use Types Packs/Day Years Used Date Smoking Tobacco: Former Alcohol Use Standard Drinks/Week Comments Yes 0 (1 standard drink = 0.6 oz pur e alcohol) Social Comments No Sex and Gender Information Value Date Recorded Sex Assigned at Not on file Legal Sex 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
--- OUTSIDE RECORDS SUMMARY | 2025-09-05 08:04 | XMS_ITS | Clinical Summary ---
Author Organization [facility] Address [address] [place] [address] Care Team Providers Care Dispatcher Clerk Name Role Phone Lobito Mcelroy Primary Care [...] Active Additional Information Patient not taking.Reported on 08/25/2025 PNV no.95/ferrous fum/folic ac ( ORAL) Take by mouth Active magnesium gluconate 200 mg tabletIndications: hypomagnesemia 1 tablet (200 mg total) Active acetaminophen (TYLENOL) 500 mg tablet Take 2 tablets (1,000 mg total) by mouth 08/06/20 25 Active labetaloL (NORMODYNE,TRANDAT E) 100 mg tablet Take 3 tablets (300 mg total) by mouth 08/16/20 25 Active Active Problems Problem Noted Date Diagnosed Date Pre-eclampsia in third trimester 08/25/2025 Pulmonary hypertension 08/25/2025 Clostridium difficile diarrhea 06/25/2021 Recurrent sinusitis 06/25/2021 Recurrent major depression 03/07/2021 Idiopathic intracranial hypertension 04/19/2020 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 Migraine 10/18/2019 Encounters Date Type Department Care Team Description 08/25/2025 8:15 AM CDT Office Visit [facility] Cardiology [address] [address] Kristyn Newell MD Pulmonary hypertension (HCC) (Primary Dx); Pre-eclampsia in third trimester 08/17/2025 Orders Only [facility] Cardiology [address] [place] [address] Keturah Grayson MD 07/29/2025 9:45 AM CDT Office Visit [facility] Medicine Ophthalmology [address] [place] [phone] Trenton Tiwari MD Unspecified disorder of visual pathways (Primary Dx); Papilledema; Idiopathic intracranial hypertension 07/29/2025 9:20 AM CDT Imaging Exam [facility] Medicine Ophthalmology [address] [place] [phone] Unspecified disorder of visual pathways from [...] on file Legal 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 Gender Identity Female 08/11/2023 11:20 AM CDT Sexual Orientation Not on file Obstetrics History Last Filed Vital Signs Vital Sign Reading Time Taken Comments Blood Pressure 112/66 08/25/2025 8:15 AM CDT Pulse 78 08/25/2025 8:15 AM CDT Temperature 36.6 C (97.8 F) 02/04/2020 12:00 PM BUSINESS RULES DEVELOPER Respiratory Rate 16 08/25/2025 8:15 AM CDT Oxygen Saturation 97% 08/25/2025 8:15 AM CDT Inhaled Oxygen Concentration - - Weight 121.1 kg (267 lb) 08/25/2025 8:15 AM CDT Height 170.2 cm (5' 7) 08/25/2025 8:15 AM CDT Body Mass Index 41.82 08/25/2025 8:15 AM CDT Plan of Treatment Health Maintenance Due [...] Procedure Name Priority Date/Time Associated Diagnosis Comments POCT LIPID PANEL Routine 08/25/2025 9:27 AM CDT Pre-eclampsia in third trimester Pulmonary hypertension (HCC) ELECTROCARDIOGRAM REPORT Routine 08/25/2025 Pre-eclampsia in third trimester Pulmonary hypertension (HCC) CARDIOLOGY DOCUMENT SCAN Routine 025 2:55 PM CDT CARDIOLOGY DOCUMENT SCAN Routine 025 2:39 PM CDT OCT, RETINA - OU - BOTH EYES Routine 07/29/2025 9:01 AM CDT Unspecified disorder of visual pathways OCT, OPTIC NERVE - OU - BOTH EYES Routine 07/29/2025 9:01 AM CDT Unspecified disorder of visual pathways from Last 3 Months Results * (ABNORMAL) POCT lipid panel (08/25/2025 9:27 AM CDT) Cholesterol, POC 243 <200 MG/DL HDL, POC 53 >=40 mg/dL Triglycerides, POC 112 <=149 mg/dL LDL Cholesterol POC 168(A) <=129 mg/dL Chol/HDL Ratio, POC 4.6 NONE Non-HDL Cholesterol, POC 190 NONE mg/dL Cholesterol Total, POC 243(A) 30 - 199 mg/dL Capillary blood 08/25/2025 9 :27 AM CDT us Kristyn Newell MD POINT OF CARE TEST O RDERABLES Final Result * Electrocardiogram Report (08/25/2025) 08/25/2025 us Kristyn Newell MD ECG ORDERABLES Neetu l Result * Cardiology Document Scan (08/16/2025 2:55 PM [...] al Result from Last 3 Months Insurance [facility] [employer] [facility] Advance Directives For more information, please contact: [phone] * Full Code (Latest Code Status on File) Date Activated Date Inactivated Comments 02/04/2020 11:17 AM 02/04/2020 7:26 PM Care Teams Dispatcher Clerk Relationship Specialty Start Date End Date Lobito Mcelroy DO [address] [place] [address] PCP - General Family Medicine 11/29/24
[2025-09-05 08:47] LABS: Alanine Aminotransferase 17 U/L (6-35); Albumin Level 4.0 g/dL (3.5-5.1); Alkaline Phosphatase 81 U/L (38-126); Anion Gap 8 mmol/L (4-12); Aspartate Amino Transferase 20 U/L (14-36); Bilirubin,Total 0.3 mg/dL (0.2-1.3); Blood Urea Nitrogen 14 mg/dL (7-17); Calcium 9.4 mg/dL (8.4-10.2); Carbon Dioxide 27 mmol/L (22-30); Chloride 107 mmol/L (98-107); Estimated Glomerular Filt Rate > 60; Glucose 88 mg/dL (65-110); Osmolality Calculated 293 mOsm/kg (285-295); Potassium 4.1 mmol/L (3.4-5.0); Sodium 142 mmol/L (137-145); Total Protein 6.8 g/dL (6.3-8.2)
== END 2025-09-05 07:57 | disposition home or self-care (01) ==
LOC: CHSLAB 07:57
PROVIDERS: PCP Nurse Practitioner Family; Visit Provider Nurse Practitioner Family
DX: I10 Essential (primary) hypertension (principal)
CPT/HCPCS: 36415; 80053

== ENCOUNTER 2025-10-04 13:52 | Outpatient (CLI) | payer OTHER, SELFPAY ==
--- NOTE | 2025-10-04 13:56 | ECHO_ITS ---
Patient Info Name: Erin Caputo Age: 30 years : 1995 Gender: Female Ht: 67 in Wt: 260 lbs BSA: 2.42 m2 HR: 77 bpm BP: 153 / 104 mmHg Technical Quality: Good Exam Date: 10/04/2025 2:10 PM Patient Status: O Admit Date: 10/04/2025 Exam Type: CA echo doppler color flow Complete two-dimensional, color flow and Doppler transthoracic echocardiogram is performed. Field Director: Yudith Adams Attending Provider: Afua Eldridge Summary 1. Complete two-dimensional, color flow and Doppler transthoracic echocardiogram is performed. 2. Left ventricular chamber dimension is normal. 3. Left ventricular systolic function is normal, estimated at 60-65. 4. The left ventricular diastolic function is normal. 5. E/e' 7 is not elevated. 6. There is trace tricuspid valve regurgitation. Left Ventricle E/e' 7 is not elevated. Left ventricular chamber dimension is normal. Left ventricular systolic function is normal, estimated at 60-65. The left ventricular diastolic function is normal. Right Ventricle Right ventricular chamber dimension is normal. Right ventricular systolic function is normal and with normal TAPSE 2.2 cm. Left Atria Left atrial chamber dimension is normal. Right Atria Right atrial chamber dimension is normal. Aortic Valve The aortic valve is trileaflet. There is no aortic valve stenosis. There is no aortic valve regurgitation. Pulmonic Valve There is no pulmonic regurgitation. Mitral Valve There is no mitral valve stenosis. There is no mitral valve regurgitation. Tricuspid Valve There is trace tricuspid valve regurgitation. RVSP is not measured due to an inadequate TR jet. Pericardium/Pleural There is no pericardial effusion. Inferior Vena Cava Normal inferior vena cava with >50% collapse upon inspiration consistent with normal right atrial pressure, 5 mmHg. Aorta The aortic root size at the sinus of Valsalva is normal. Left Ventricular Outflow Tract Name Value Normal LVOT 2D LVOT Diameter 2.0 cm LVOT Doppler LVOT Peak Velocity 98 cm/s LVOT Peak Gradient 4 mmHg LVOT Mean Gradient 2 mmHg LVOT VTI 21 cm LVOT Stroke Volume 64 ml LVOT CO 4.9 l/min LVOT CI 2.0 l/min/m2 Pulmonic Valve Name Value Normal RVOT Doppler RVOT Peak Velocity 80 cm/s RVOT Peak Gradient 3 mmHg PV Doppler PV Peak Velocity 115 cm/s PV Peak Gradient 5 mmHg Mitral Valve Name Value Normal MV Diastolic Function MV E Peak Velocity 92 cm/s MV A Peak Velocity 71 cm/s MV E/A 1.3 MV Decel Time (PW) 249 ms MV Annular TDI MV E/e' (Septal) 9.4 MV E/e' (Lateral) 5.7 MV E/e' (Average) 7.6 Tricuspid Valve Name Value Normal Estimated PAP/RSVP RA Pressure 5 mmHg <=5 Aortic Valve Name Value Normal AV Doppler AV Peak Velocity 159 cm/s AV Peak Gradient 10 mmHg AV Area (Cont Eq Juan Francisco) 1.9 cm2 AV DI (Juan Francisco) 0.62 AV Regurgitation 2D LVOT Area 3.0 cm2 Ventricles Name Value Normal LV Dimensions 2D/MM IVS Diastolic Thickness (2D) 0.9 cm 0.6-1.0 LVID Diastole (2D) 5.3 cm 3.8-5.2 LVIW Diastolic Thickness (2D) 1.1 cm 0.6-0.9 LVID Systole (2D) 3.5 cm 2.2-3.5 LVOT Diameter 2.0 cm LV Mass (2D Cubed) 189.42 g 67.00-162.00 LV Mass Index (2D Cubed) 78 g/m2 43-95 Relative Wall Thickness (2D) 0.40 <=0.42 LV Fractional Shortening/Ejection Fraction 2D/MM LV Fractional Shortening (2D) 33 % 27-45 LV EF (2D Teichholz) 61 % LV Diastolic Volume (4C MOD) 151 ml LV EF (4C MOD) 54 % LV Diastolic Volume (2C MOD) 204 ml LV EF (2C MOD) 67 % LV Diastolic Volume (BP MOD) 178 ml 46-106 LV Diastolic Volume Index (BP MOD) 73 ml/m2 29-61 LV Systolic Volume (BP MOD) 71 ml 14-42 LV Systolic Volume Index (BP MOD) 29 ml/m2 8-24 LV EF (BP MOD) 60 % 54-74 LV Diastolic Length (4C) 9.2 cm LV Systolic Length (4C) 8.3 cm LV Stroke Volume (4C MOD) 81 ml Atria Name Value Normal LA Dimensions LA Volume (4C A-L) 86 ml LA Volume (BP A-L) 81 ml RA Dimensions RA Systolic Major Mcloud Length (4C) 6.0 cm 2.2-2.8 RA Area (4C) 19.5 cm2 <=18.0 Report Signatures
== END 2025-10-04 13:53 | disposition home or self-care (01) ==
LOC: CHSIMG 13:53
PROVIDERS: PCP Nurse Practitioner Family; Visit Provider Nurse Practitioner Family
DX: I50.9 Heart failure, unspecified (principal); I10 Essential (primary) hypertension; O90.3 Peripartum cardiomyopathy
CPT/HCPCS: 93306